=== PATIENT | female | born 1940 | race Caucasian/White ===

== ENCOUNTER → 2021-03-27 | Outpatient (CLI) | payer MEDICARE ==
[~2021-03-27] MED LIST: ACET500T33 PO; CALC500T30 PO; CHOL5000 PO; CREON; FOLI0.4T5 PO; HYDR-2759 PO; LACT1CAP37 PO; LIDOCAINE 1% Multi-Dose 20 ML VIAL. INJ ONE; METH2.5T PO; PANT20TA2 PO; PREG150C PO; VIT1TABL32 PO
--- NOTE | 2021-03-27 17:34 | RAD ---
Ultrasound guided fine needle aspiration biopsy of right thyroid nodule 03/27/2021 HISTORY: Thyroid nodule FINDINGS: Written informed consent was obtained from the patient. Limited ultrasound scanning was pe rformed for localization of the right thyroid nodule. Skin was marked with ultrasound and then steri isabela prepped and draped. Local anesthesia with 1% lidocaine. Using ultrasound guidance, 4 passes w ere made with 25 gauge needles into the thyroid nodule for fine needle aspiration biopsies. There we re no immediate complications. IMPRESSION: 1. Status post ultrasound guided fine needle aspiration biopsy of right thyroid nodule. Electronically signed by: Tamanna Cobos MD (03/27/2021 5:31 PM) [id number]
== END | disposition home or self-care (01) ==
LOC: US 12:41
PROVIDERS: ATTEND Surgery
DX: E04.1 Nontoxic single thyroid nodule (principal)
CPT/HCPCS: 10005; 88173; 88305; C1819

== ENCOUNTER → 2021-04-05 | Outpatient (CLI) | payer MEDICARE ==
--- NOTE | 2021-04-05 12:58 | RAD ---
CT THORAX WO History: Lung nodule. Comparison: CT chest 09/28/2020. Technique: Noncontrast CT of the chest. Findings: Assessment is limited by lack of IV contrast. Cardiovascular: Normal caliber aorta. Mildly enlarged main pulmonary artery. Normal heart size. Minim al coronary artery calcification. Mediastinum and yonny: Redemonstrated right thyroid nodule. Coarse calcifications in the left hilar ly mph nodes. No enlarged adenopathy. Esophagus unremarkable. Airways, lungs and pleura: Diffuse bronchial wall thickening. Multiple areas of mucous plugging parti cularly in the left lower lobe, increased from comparison. Medial left lower lobe nodules measuring 1 .2 x 1.0 cm (axial 241) and adjacent 6 mm nodule (axial 240) appear minimally enlarged from compariso n. Groundglass nodule right upper lobe measuring 1.2 cm diameter (axial 111) appears not significantl y changed. Redemonstrated are numerous areas of patchy tree-in-bud opacities including lateral lower right upper lobe (axial 132), posterior right lower lobe (for example axial 227), and left lower lobe (for example axial 210). Upper abdomen: Calcified granulomas spleen. Osseous structures and soft tissues: Within normal limits for age. Impression: 1. Bronchial wall thickening and mucous plugging with interval worsening at the right lower lobe. 2. Right lower lobe nodule measuring 1.2 x 1.0 cm in adjacent 6 mm nodule which appear minimally enl arged from recent comparison, May relate to differences in technique and/or ongoing infectious etiolo gy however malignancy is not excluded. Recommend 3 month interval follow-up CT versus PET/CT. 3. Additional groundglass opacities, most notably in the right upper lobe measuring 1.2 cm diameter for which includes bronchioloalveolar carcinoma in situ in the differential as well as infectious shanell ologies. Continued surveillance is indicated. 4. 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 ------ Exposure: One or more of the following individualized dose reduction techniques were utilized for thi s examination: 1. Automated exposure control 2. Adjustment of the mA and/or kV according to patient size 3. Use of iterative reconstruction technique. Electronically signed by: Jozef Kennedy MD (04/05/2021 12:55 PM) [facility]
== END ==
LOC: CT 08:50
PROVIDERS: ATTEND Internal Medicine Pulmonary Disease
DX: C34.11 Malignant neoplasm of upper lobe, right bronchus or lung (principal); R91.8 Other nonspecific abnormal finding of lung field; T17.990A Other foreign object in respiratory tract, part unspecified in causing asphyxiation, initial encounter; E04.1 Nontoxic single thyroid nodule; I25.10 Atherosclerotic heart disease of native coronary artery without angina pectoris; X58.XXXA Exposure to other specified factors, initial encounter; Y93.89 Activity, other specified; Y92.89 Other specified places as the place of occurrence of the external cause; Y99.8 Other external cause status
CPT/HCPCS: 71250

== ENCOUNTER → 2021-05-31 | Outpatient (CLI) | payer OTHER, MEDICAID ==
--- NOTE | 2021-05-31 15:28 | RAD ---
EXAMINATION: Ultrasound-guided fine-needle aspiration right thyroid nodule, 05/31/2021 12:39 PM CLINICAL INDICATION: Thyroid nodule, nondiagnostic results on prior FNA. COMPARISON: FNA of right thyroid nodule 03/27/2021 FINDINGS/TECHNIQUE: The purpose of the procedure, and risks and benefits were explained to the patient. Informed consent was obtained. A timeout was performed. Initial ultrasound images identified the right thyroid nodule. The skin overlying the patient's right neck was marked, prepped, and draped in standard sterile fashion. Skin and subcutaneous soft tissue were anesthetized with 1% lidocaine. Next, using continuous ultrasound guidance, four 25-gauge fine-n eedle aspiration samples were obtained of the thyroid nodule and given to the laboratory chemist for anal ysis. The skin was cleansed and covered with a dressing. The patient tolerated the procedure well and left in stable condition. IMPRESSION: Technically successful, ultrasound-guided fine needle aspiration of right thyroid nodule. Electronically signed by: Earline Cheng MD (05/31/2021 3:26 PM) [id number]
--- NOTE | 2021-06-05 11:09 | PATHOLOGY ---
Note [facility] Accession Number: [id number] TESTS RESULT FLAG UNITS REF RANGE LAB Clinician Provided Cytology Information No. of containers..01 Other (Miscellaneous) Source: RIGHT THYROID DIAGNOSIS: RIGHT THYROID INADEQUATE, INSUFFICIENT CELLS FOR STUDY. RED BLOOD CELLS ARE PRESENT. COLLOID IS PRESENT. THIS INTERPRETATION INCLUDES EVALUATION OF A CELL BLOCK. COMMENT, FEWER THAN 6 GROUPS OF 10 THYROID FOLLICULAR CELLS ARE PRESENT. THE MATERIAL ASPIRATED IS NOT BUS WASHER AND IS POORLY CELLULAR THE CLINICAL INDICATES 4.1 CM NODULE. THE RETAIN VIAL IS HENCE NOT SEND MIGHT NOT HAVE ENOUGH CELLS. Signed out by: Patsy Moody MD, Pathologist NPI- [id number] Performed by: Qing Mullen, Manager Play ([facility]) Gross description: 31ML, CLEAR, RED, 2F 2AD 2H /LCS 06/04/2021 1904 Local FLAG LEGEND: L-Low Normal,H-High Normal,LL-Alert Low,HH-Alert High <-Panic Low,>-Panic High,A-Abnormal,AA-Critical Abnormal Performed at: [address] [place] [address] [address] [place] [address] Jeremy Moody MD, Specimen Comment: [id number] Performed at: [address] [place] [address] [address], [place], [place] [id number] MD Jeremy Moody MD Phone: [phone]
== END ==
LOC: US 12:38
PROVIDERS: ATTEND Surgery
DX: E04.1 Nontoxic single thyroid nodule (principal)
CPT/HCPCS: 10005; 88173; 88305; C1819

== ENCOUNTER 2021-07-30 10:49 | Observation (INO) | payer OTHER, MEDICAID ==
[2021-07-30] VITALS (8 sets, daily range): BP systolic 120–148; BP diastolic 67–79
[~2021-07-30] VITALS: Ht 160 cm; Wt 90.9 kg
[~2021-07-30 10:49] MED LIST changes: -ACET500T33 PO; -CALC500T30 PO; -CHOL5000 PO; -CREON; -FOLI0.4T5 PO; -HYDR-2759 PO; +HYDROmorphone 2 MG/ML VIAL IVP PRN; +IV RINGERS,LACTATED 1000ML 1,000 ML IV SCH; -LACT1CAP37 PO; -LIDOCAINE 1% Multi-Dose 20 ML VIAL. INJ ONE; -METH2.5T PO; +MORPHINE SULFATE 2 MG/ML INJ. IVP PRN; -PANT20TA2 PO; -PREG150C PO; +PROCHLORPERAZINE 10 MG/2 ML VIAL. IVP PRN; +REMIFENTANIL 1 MG VIAL. IV ONE; -VIT1TABL32 PO; +fentaNYL PF VIAL 100 MCG/2 ML VIAL IVP PRN
[2021-07-30] MEDS ORDERED: fentaNYL PF VIAL 100 MCG/2 ML VIAL ONE (10:55)
[2021-07-30] MEDS ORDERED: ROCURONIUM 50 MG/5 ML VIAL. ONE (10:55)
[2021-07-30] MEDS ORDERED: PANT20TA2 PO (11:24)
[2021-07-30] MEDS ORDERED: CALC500T30 PO (11:24)
[2021-07-30] MEDS ORDERED: VIT1TABL32 PO (11:24)
[2021-07-30] MEDS ORDERED: PREG150C PO (11:24)
[2021-07-30] MEDS ORDERED: CHOL5000 PO (11:24)
[2021-07-30] MEDS ORDERED: ACET500T33 PO (11:24)
[2021-07-30] MEDS ORDERED: METH2.5T PO (11:24)
[2021-07-30] MEDS ORDERED: LACT1CAP37 PO (11:24)
[2021-07-30] MEDS ORDERED: FOLI0.4T5 PO (11:24)
[2021-07-30] MEDS ORDERED: CREON (11:25)
[2021-07-30] MEDS ORDERED: SUCCINYLCHOLINE 200 MG/10 ML VIAL. ONE (12:33)
[2021-07-30] MEDS ORDERED: GLYCOPYRROLATE 1 MG/5 ML VIAL. ONE (12:45)
[2021-07-30] MEDS ORDERED: PHENYLEPHRINE 10 MG/ML VIAL. ONE (12:58)
[2021-07-30] MEDS ORDERED: PROPOFOL 10 MG/ML (20ML) VIAL. IV ONE (13:00)
[2021-07-30] MEDS ORDERED: ePHEDrine PF IN SALINE 50 MG/10 ML SYRINGE. IV ONE (13:26)
[2021-07-30] MEDS ORDERED: ONDANSETRON PF 4 MG/2 ML VIAL. ONE (13:27)
[2021-07-30] MEDS ORDERED: DEXAMETHASONE SOD PHOS 4 MG/ML VIAL ONE (13:27)
[2021-07-30] MEDS ORDERED: SEVOFLURANE > 120 MINUTES. IH ONE (14:05)
[2021-07-30] MEDS ORDERED: NEOSTIGMINE METHYLSULFATE 5 MG/5 ML SYRINGE. ONE (14:31)
--- NOTE | 2021-07-30 15:13 | PDOC4 ---
Operative Note Operative Note Operative Note: Preoperative Diagnosis: Right thyroid mass Postoperative Diagnosis: Same Procedure: Right thyroidectomy Surgeon: Ander Product Promoter Sales Person: Dr. Perry, Marysol HERNANDEZ, Tanner Sol MS 4 Anesthesia: General EBL: 75 mL Specimen: Right thyroid to pathology Drains: None Complications: None Indication: The patient is a 81-year-old female who was referred due to a mass of the right thyroid that was over 4 cm. Two attempts were made for FNA evaluation however both were insufficient for diagnosis. I discussed with the patient options which include observation versus surgical excision. The details and risks of both approaches were discussed. The risks of surgery include b leeding, infection, recurrent laryngeal nerve injury, pain, hypoparathyroidism, anesthetic risk, voice changes, potential need for additional surgery procedure. She understands and would like to proceed with surgery. She is aware that if cancer is identified on frozen section a total thyroidectomy may be required. Description: The patient was taken the operating room and placed supine on the operating table. General anesthesia was performed. The Nims device was assembled. The anterior neck was prepped with ChloraPrep and draped in a standard surgical manner. A curved incision was made 2 fingerbreadths above the sternal notch. Cautery dissection was carried down through the platysma. Subplatysmal flaps were developed superiorly and inferiorly. The strap muscle fascia was divided in the midline. We began mobilizing the right thyroid lobe. The mass was identified and appeared to essentially overtake the right thyroid lobe. There was some adherence of the mass consistent with potential inflammatory change. Gradually we freed up the strap muscle fascia from the mass laterally. In the superior aspect there was some fibrotic tissue noted as well. The superior pole vessels were identified, dissected free, ligated with 2-0 Vicryl and divided. The harmonic scalpel assisted with mobilization of the rest of the thyroid lobe. The vessels entering the inferior pole of the thyroid were ligated with 3-0 Vicryl and divided. We then continued mobilizing the remainder of the lobe which was dominated by the mass. The mass was taken off of the trachea using harmonic scalpel. The entire mass was then sent to pathology for evaluation. Frozen section showed a follicular lesion with no evidence of papillary carcinoma. Additional inspection showed a small thyroid r emnant laterally that was likely a small portion of the normal gland. This was freed up from the surrounding tissues. Lateral to this was the recurrent laryngeal nerve which was readily identified and stimulated properly with the Nims device. This remaining remnant was carefully dissected free and excised and sent to pathology. The recurrent laryngeal nerve was preserved and st imulated appropriately. Hemostasis was good. The strap muscle fascia was reapproximated with 3-0 Vicryl. The platysma was closed with 3-0 Vicryl. Skin was approximated with 4-0 Monocryl. Steri-Strips and a sterile dressing were applied. The patient tolerated the procedure well and was sent to the recovery room in stable condition. At the end the case all counts were correct. OZZIE TORRE MD Jul 30, 2021 15:13
[2021-07-30] MEDS ORDERED: IV NORMAL SALINE 1000ML BAG 1,000 ML IV SCH (15:15)
[2021-07-30] MEDS ORDERED: NALOXONE 0.4 MG/ML VIAL. IV PRN (15:15)
[2021-07-30] MEDS ORDERED: HYDROmorphone 2 MG/ML VIAL IV PRN (15:15)
[2021-07-30] MEDS ORDERED: 0.9 % SODIUM CHLORIDE 10 ML DISP.SYRIN. IV PRN (15:15)
[2021-07-30] MEDS ORDERED: ONDANSETRON PF 4 MG/2 ML VIAL. IVP PRN (15:15)
[2021-07-30] MEDS: PREGABALIN 75 MG CAPSULE PO SCH ×2 (15:30→19:52)
--- NOTE | 2021-07-30 16:30 | NUR ---
Arrived to unit by bed from PACU. Drowsy but awakens easily. No c/o at this time. Dressing on anterior neck d/i. Noted fatty tumor on left side of neck. Able to move all extremities. IVF's intact and infusing. O2 at 2l per n/c. Side rails up x's 2 with call light in reach. Cont. monitor.
[2021-07-30] MEDS: IV 1/2 NORMAL SALINE 1,000 ML IV SCH ×2 (17:42→23:15)
[2021-07-30] MEDS: HYDROcodone/APAP 5/325MG 1 TAB TABLET PO PRN ×2 (17:44→22:45)
[2021-07-30] MEDS ORDERED: FLU VACC QUAD 21-22 (6MOS+) PF 0.5 ML SYRINGE. VAX IM ONE (21:00)
[2021-07-31] MEDS: HYDROcodone/APAP 5/325MG 1 TAB TABLET PO PRN ×2 (02:34→08:37)
[2021-07-31 02:35] VITALS: BP 118/63
[2021-07-31 06:39] VITALS: BP 95/56
[2021-07-31] MEDS ORDERED: PANTOPRAZOLE 40 MG TABLET.DR. PO SCH (07:30)
[2021-07-31] MEDS: PREGABALIN 75 MG CAPSULE PO SCH (08:36)
[2021-07-31] MEDS ORDERED: LACTOBACILLUS RHAMNOSUS GG 1 CAPSULE. PO SCH (09:00)
[2021-07-31] MEDS ORDERED: FOLIC ACID 1 MG TABLET. PO SCH (09:00)
[2021-07-31] MEDS ORDERED: MULTIVITAMIN I-VITE TABLET. PO SCH (09:00)
--- NOTE | 2021-07-31 09:07 | PDOC ---
PROGRESS NOTES Date of Service DATE: 07/31/21 TIME: 09:06 Subjective Subjective doing well, voice strong Objective Objective Vital Signs Date Time Temp Pulse Resp B/P (MAP) Pulse Ox O2 Delivery O2 Flow Rate FiO2 07/31/21 07:27 Room Air 07/31/21 06:39 98.6 73 18 95/56 (69) 97 3.0 98.6 Intake and Output 07/31/21 07:00 Intake Total 1350 ml Output Total 1375 ml Balance -25 ml Intake Oral 500 ml IV Total 850 ml Output Urine Total 1300 ml Estimated Blood Loss 75 ml Physical Exam Physical Exam neck without hematoma Plan Plan of Care discharge Comment Review of Relevant I have reviewed the following items kierra (where applicable) has been applied. Medications Current Medications Fentanyl Citrate (Fentanyl 2ml Vial) 25 mcg PRN Q5MIN PRN IVP MILD PAIN 1-3; Start 07/30/21 at 06:00; Stop 07/30/21 at 16:33; Status DC Fentanyl Citrate (Fentanyl 2ml Vial) 50 mcg PRN Q5MIN PRN IVP MODERATE PAIN 4- 6; Start 07/30/21 at 06:00; Stop 07/30/21 at 16:33; Status DC Morphine Sulfate (Morphine Sulfate) 1 mg PRN Q10MIN PRN IVP SEVERE PAIN 7-10; Start 07/30/21 at 06:00; Stop 07/30/21 at 16:33; Status DC Ringer's Solution 1,000 ml @ 30 mls/hr Q24H IV Last administered on 07/30/21at 11:40; Start 07/30/21 at 06:00; Stop 07/30/21 at 17:59; Status DC Hydromorphone HCl (Dilaudid) 0.5 mg PRN Q10MIN PRN IVP SEVERE PAIN 7-10, 2nd CHOICE; Start 07/30/21 at 06:00; Stop 07/30/21 at 16:33; Status DC Prochlorperazine Edisylate (Compazine) 5 mg PACU PRN PRN IVP NAUSEA, MRX1; Start 07/30/21 at 06:00; Stop 07/30/21 at 16:33; Status DC Cefazolin Sodium/ Dextrose 50 ml @ 100 mls/hr 1X PREOP PRN IV PRIOR TO PROCEDURE Last administered on 07/30/21at 12:26; Start 07/30/21 at 06:00; Stop 07/30/21 at 16:32; Status DC Rocuronium Becker (Zemuron) 50 mg STK-MED ONCE .ROUTE ; Start 07/30/21 at 10:55; Stop 07/30/21 at 10:55; Status DC Fentanyl Citrate (Fentanyl 2ml Vial) 100 mcg STK-MED ONCE .ROUTE ; Start 07/30/21 at 10:55; Stop 07/30/21 at 10:56; Status DC Remifentanil HCl (Ultiva) 1 mg STK-MED ONCE IV ; Start 07/30/21 at 09:00; Stop 07/30/21 at 11:00; Status DC Succinylcholine Chloride (Anectine) 200 mg STK-MED ONCE .ROUTE ; Start 07/30/21 at 12:33; Stop 07/30/21 at 12:33; Status DC Glycopyrrolate (Robinul) 1 mg STK-MED ONCE .ROUTE ; Start 07/30/21 at 12:45; Stop 07/30/21 at 12:46; Status DC Phenylephrine HCl (Willard-Synephrine Inj) 10 mg STK-MED ONCE .ROUTE ; Start 07/30/21 at 12:58; Stop 07/30/21 at 12:58; Status DC Propofol (Diprivan) 200 mg STK-MED ONCE IV ; Start 07/30/21 at 13:00; Stop 07/30/21 at 13:00; Status DC Ephedrine Sulfate (ePHEDrine PF IN SALINE SYRINGE) 50 mg STK-MED ONCE IV ; Start 07/30/21 at 13:26; Stop 07/30/21 at 13:27; Status DC Ondansetron HCl (Zofran) 4 mg STK-MED ONCE .ROUTE ; Start 07/30/21 at 13:27; Stop 07/30/21 at 13:27; Status DC Dexamethasone Sodium Phosphate (Decadron) 4 mg STK-MED ONCE .ROUTE ; Start 07/30/21 at 13:27; Stop 07/30/21 at 13:27; Status DC Sevoflurane (Ultane) 90 ml STK-MED ONCE IH ; Start 07/30/21 at 14:05; Stop 07/30/21 at 14:06; Status DC Neostigmine Becker (Neostigmine Methylsulfate) 5 mg STK-MED ONCE .ROUTE ; Start 07/30/21 at 14:31; Stop 07/30/21 at 14:32; Status DC Sodium Chloride (Normal Saline Flush) 3 ml QSHIFT PRN IV AFTER MEDS AND BLOOD DRAWS; Start 07/30/21 at 15:15 Sodium Chloride 1,000 ml @ 70 mls/hr [id number] IV Last administered on 07/30/21at 17:42; Start 07/30/21 at 15:15 Acetaminophen/ Hydrocodone Bitart (Lortab 5/325) 1 tab PRN Q4HRS PRN PO MILD PAIN 1-3 Last administered on 07/31/21at 08:37; Start 07/30/21 at 15:15 Acetaminophen/ Hydrocodone Bitart (Lortab 5/325) 2 tab PRN Q4HRS PRN PO MODERATE PAIN, SEVERE PAIN Last administered on 07/31/21at 02:34; Start 07/30/21 at 15:15 Naloxone HCl (Narcan) 0.4 mg PRN Q2MIN PRN IV SEE INSTRUCTIONS; Start 07/30/21 at 15:15 Sodium Chloride 1,000 ml @ 25 mls/hr Q24H IV ; Start 07/30/21 at 15:15; Stop 07/30/21 at 16:33; Status DC Hydromorphone HCl (Dilaudid) 0.2 mg PRN Q1HR PRN IV PAIN; Start 07/30/21 at 15:15 Ondansetron HCl (Zofran) 4 mg PRN Q6HRS PRN IVP LUPE, 1ST CHOICE; Start 07/30/21 at 15:15 Multivitamins/ Minerals (I-Aurora) 1 tab DAILY PO Last administered on 07/31/21at 08:36; Start 07/31/21 at 09:00 Folic Acid (Folic Acid) 0.5 mg DAILY PO Last administered on 07/31/21at 08:36; Start 07/31/21 at 09:00 Lactobacillus Rhamnosus (Culturelle) 1 cap DAILY PO Last administered on 07/31/21at 08:36; Start 07/31/21 at 09:00 Pantoprazole Sodium (Protonix) 40 mg DAILYAC PO Last administered on 07/31/21at 06:14; Start 07/31/21 at 07:30 Pregabalin (Lyrica) 150 mg TID PO Last administered on 07/31/21at 08:36; Start 07/30/21 at 15:30 Influenza Virus Vaccine Quadrival (Flulaval Quad Syringe) 0.5 ml ONCE ONCE VAX IM Last administered on 07/31/21at 06:37; Start 07/30/21 at 21:00; Stop 07/30/21 at 21:01; Status DC Active Scripts Active Reported [Creon] Tylenol Extra Strength (Acetaminophen) 500 Mg Tablet 500 Mg PO BID Calcium (Calcium Carbonate) 500 Mg Tablet 500 Mg PO TID Protonix (Pantoprazole Sodium) 20 Mg Tablet.dr 20 Mg PO DAILY Folic Acid 0.4 Mg Tablet 0.4 Mg PO DAILY Vitamin D3 (Vitamin D) 125 Mcg Capsule 125 Mcg PO DAILY 5,000 UNITS = 125 MCG Methotrexate (Methotrexate Sodium) 2.5 Mg Tablet 6 Tab PO WEEKLY Ocuvite Tablet (Vit A,C & E/Lutein/Minerals) 1 Each Tablet 1 Tab PO DAILY 30 Days Probiotic (Lactobacillus Combo No.10) 1 Each Capsule 1 Tab PO DAILY 30 Days Lyrica (Pregabalin) 150 Mg Capsule 150 Mg PO TID 30 Days Vitals/I & O Vital Sign - Last 24 Hours 07/30/21 07/30/21 07/30/21 07/30/21 11:25 11:38 15:03 15:15 Temp 98.8 97.2 98.8 97.2 Pulse 81 87 Resp 12 16 B/P (MAP) 176/81 159/62 Pulse Ox 92 98 O2 Delivery Room Air Room Air Room Air Mask O2 Flow Rate 8 8 07/30/21 07/30/21 07/30/21 07/30/21 15:20 15:35 16:10 16:30 Temp 98.6 98.6 Pulse 88 84 85 88 Resp 16 16 16 20 B/P (MAP) 145/56 150/66 131/70 (90) 134/68 (90) Pulse Ox 98 96 92 93 O2 Delivery Room Air Room Air Nasal Cannula Nasal Cannula O2 Flow Rate 3.0 3.0 07/30/21 07/30/21 07/30/21 07/30/21 16:45 16:48 17:00 17:30 Pulse 97 88 91 Resp 20 18 20 B/P (MAP) 145/79 (101) 146/77 (100) 148/79 (102) Pulse Ox 93 93 94 O2 Delivery Nasal Cannula Nasal Cannula Nasal Cannula Nasal Cannula O2 Flow Rate 3.0 3.0 3.0 3.0 07/30/21 07/30/21 07/30/21 07/30/21 17:44 18:00 19:00 19:12 Temp 98.4 98.2 98.4 98.2 Pulse 85 78 Resp 20 20 B/P (MAP) 144/76 (98) 138/71 (93) Pulse Ox 94 94 O2 Delivery Room Air Nasal Cannula Nasal Cannula Nasal Cannula O2 Flow Rate 3.0 3.0 3.0 07/30/21 07/30/21 07/30/21 07/30/21 19:52 22:45 22:45 23:15 Temp 97.9 97.9 Pulse 76 Resp 18 18 20 B/P (MAP) 120/67 (84) Pulse Ox 95 95 95 O2 Delivery Nasal Cannula Nasal Cannula Nasal Cannula Room Air O2 Flow Rate 3.0 3.0 3.0 07/31/21 07/31/21 07/31/21 07/31/21 02:34 02:35 03:04 06:35 Temp 98.0 98.0 Pulse 80 Resp 18 18 18 B/P (MAP) 118/63 (81) Pulse Ox 93 93 77 O2 Delivery Room Air Room Air Room Air Room Air 07/31/21 07/31/21 06:39 07:27 Temp 98.6 98.6 Pulse 73 Resp 18 B/P (MAP) 95/56 (69) Pulse Ox 97 O2 Delivery Nasal Cannula Room Air O2 Flow Rate 3.0 Intake and Output 07/30/21 07/30/21 07/31/21 15:00 23:00 07:00 Intake Total 850 ml 500 ml Output Total 775 ml 600 ml Balance 75 ml -100 ml Justifications for Admission Other Justification OZZIE TORRE MD Jul 31, 2021 09:07
[2021-07-31] MEDS ORDERED: HYDR-2759 PO (09:09)
--- NOTE | 2021-07-31 09:11 | DISCH ---
DISCHARGE INSTRUCTIONS Condition on Discharge Condition on Discharge: Stable Activity After Discharge Activity Instructions for Disc: Activity as tolerated Wound Incision Care Wound/Incision Care: Other, see below (keep incision clean and dry X 72 hours, may then shower) Follow-Up Follow up with: Dr Torre in 2 weeks in office, call for appointment [phone] OZZIE TORRE MD Jul 31, 2021 09:11
--- NOTE | 2021-07-31 09:12 | PDOC3 ---
Discharge Summary Visit Information Date of Admission: Jul 30, 2021 Date of Discharge: Jul 31, 2021 Admitting Diagnosis: Thyroid nodule Brief Hospital Course Allergies Allergies Coded Allergies Type Severity Reaction Last Updated Verified No Known Drug Allergies 07/30/21 No Vital Signs Vital Signs Date Time Temp Pulse Resp B/P (MAP) Pulse Ox O2 Delivery O2 Flow Rate FiO2 07/31/21 07:27 Room Air 07/31/21 06:39 98.6 73 18 95/56 (69) 97 3.0 98.6 Brief Hospital Course Ms. Weber is a 81 old female presented with a right thyroid nodule. She underwent a right thyroidectomy and her postoperative course was uneventful. Discharge Information Condition at Discharge: Improved Follow Up: Weeks (2 weeks) Disposition/Orders: D/C to Home Scheduled Acetaminophen (Tylenol Extra Strength) 500 Mg Tablet, 500 MG PO BID for , (Reported) Entered as Reported by: Yesi Lucia on 07/30/211123 Last Taken: 500 on 07/29/21 Last Action: HELD on 07/30/211518 by OZZIE TORRE Calcium Carbonate (Calcium) 500 Mg Tablet, 500 MG PO TID for , (Reported) Entered as Reported by: Yesi Lucia on 07/30/211123 Last Taken: 500 on Unknown Date & Time Last Action: HELD on 07/30/211518 by OZZIE TORRE Cholecalciferol (Vitamin D3) (Vitamin D3 ) 125 Mcg Capsule, 125 MCG PO DAILY for SUPPLEMENT, (Reported) 5,000 UNITS = 125 MCG Entered as Reported by: Yesi Lucia on 07/30/211123 Last Taken: Unknown Dose on 07/22/21 Last Action: HELD on 07/30/211518 by OZZIE TORRE Folic Acid (Folic Acid) 0.4 Mg Tablet, 0.4 MG PO DAILY for SUPPLEMENT, (Reported) Entered as Reported by: Yesi Lucia on 07/30/211123 Last Taken: Unknown Dose on 07/23/21 Last Action: Converted on 07/30/211518 by OZZIE TORRE Lactobacillus Combo No.10 (Probiotic) 1 Each Capsule, 1 TAB PO DAILY for for 30 Days, #30 Ref 0 (Reported) Entered as Reported by: Yesi Lucia on 07/30/211123 Last Taken: 1 on 07/29/21 Last Action: Converted on 07/30/211518 by OZZIE TORRE Methotrexate Sodium (Methotrexate) 2.5 Mg Tablet, 6 TAB PO WEEKLY for , #24 Ref 1 (Reported) Entered as Reported by: Yesi Lucia on 07/30/211123 Last Taken: Unknown Dose on 07/27/21 Last Action: HELD on 07/30/211518 by OZZIE TORRE Pantoprazole Sodium (Protonix) 20 Mg Tablet.dr, 20 MG PO DAILY for , (Reported) Entered as Reported by: Yesi Lucia on 07/30/211123 Last Taken: 20 on Unknown Date & Time Last Action: Converted on 07/30/211518 by OZZIE TORRE Pregabalin (Lyrica) 150 Mg Capsule, 150 MG PO TID for for 30 Days, Ref 0 (Reported) Entered as Reported by: Yesi Lucia on 07/30/211123 Last Taken: 150 on 07/29/21 Last Action: Converted on 07/30/211518 by OZZIE TORRE Vit A,C & E/Lutein/Minerals (Ocuvite Tablet) 1 Each Tablet, 1 TAB PO DAILY for for 30 Days, #30 Ref 0 (Reported) Entered as Reported by: Yesi Lucia on 07/30/211123 Last Taken: Unknown Dose on 07/29/21 Last Action: Continued on 07/30/211518 by OZZIE TORRE Scheduled PRN Hydrocodone/Acetaminophen (Hydrocodone-Acetamin 5-325 mg) 1 Each Tablet, 1 EACH PO Q6HRS PRN for PAIN for 7 Days, #20 Ref 0 Prescribed by: OZZIE TORRE on 07/31/21 0910 Durable Medical Equipment [Creon] , (Reported), (DME) Entered as Reported by: Yesi Lucia on 07/30/211124 Last Action: New Order on 07/30/211124 by Yesi Lucia Justicifation of Admission Dx: Justifications for Admission: Justification of Admission Dx: N/A OZZIE TORRE MD Jul 31, 2021 09:12
[2021-07-31 11:00] VITALS: BP 108/49
--- NOTE | 2021-07-31 11:10 | NUR ---
REVIEWED WRITTEN DISCHARGE INSTRUCTIONS WITH PATIENT AND GRANDSON. REVIEWED RESTRICTIONS TO ACTIVITIES OF DAILY LIVING SUCH BATHING, DRESSING AND DRIVING. INSTRUCTED TO CALL FOR A POST OP APPT WITH DR. TORRE FOR 10-14 DAYS POST OP. REVIEWED MEDICATIONS AND THE ONE SHE HAS TO TAKE FOR THE DAY. SHE HAD AM MEDICATIONS
--- NOTE | 2021-08-05 18:07 | PATHOLOGY ---
[facility] Accession Number: [id number] . 01 Material submitted: . PART A: thyroid gland - RIGHT THYROID LOBE- FS. Modifiers: right PART B: thyroid gland - ADDITIONAL THYROID TISSUE . 01 Clinical history: . TYHROID NODULE POSSIBLE TOTAL RIGHT THYROIDECTOMY . 02 Frozen section diagnosis: . INTRAOPERATIVE CONSULTATION WITH FROZEN SECTION: Right thyroid nodule, excision: - Thinly encapsulated follicular lesion - definitive diagnosis deferred to permanent sections. . The results are reported to Dr. Worthington. (JPM:charlie; 07/30/2021) . FROZEN SECTION GROSS DESCRIPTION: The specimen is received fresh for intraoperative consultation and is designed "right thyroid nodule". This consists of a lobe of reddish purple soft fluctuant thyroid tissue which weighs 26 grams and measures up to 4.8 x 4.1 x 2.5 cm in greatest dimension. The anterior capsular surface appears smooth and glistening. The posterior surface shows focal dark black cauterized roughening. The margin is inked with black ink. Sectioning reveals a pinkish brown nodule measuring approximately 4.0 cm in diameter which shows central cystic degeneration and hemorrhage. The nodule appears well circumscribed and thinly encapsulated. The nodule encompasses most of the thyroid lobe. There is a small remnant of brown meaty thyroid tissue along one side. A sales representative trainee portion of the nodule is submitted for frozen section as FSA1. The tissue remaining from frozen section is submitted for permanent sections as A1 (JPM:charlie/jenifer; 07/30/2021) . Frozen section performed at [facility], [address] [place] [address], [place] [address] JMMai/MBR . 02 Diagnosis: A. Thyroid lobe with focal attached perithyroidal fibroadipose and skeletal muscle tissue, right thyroid lobectomy: - PAPILLARY CARCINOMA, INVOLVING PERIPHERAL THYROID LOBE, MEASURING 1.0 CM IN GREATEST DIMENSION, WITH TUMOR INVASION OF PERITHYROIDAL SOFT TISSUE AND FOCAL INVOLVEMENT OF INKED MARGIN OF RESECTION. - Adenomatous nodule, forming a dominant thyroid nodule measuring 4.0 cm in greatest dimension, with degenerative changes. - Parathyroid gland tissue identified. . B. Additional thyroid tissue, excision: - Segment of benign thyroid tissue identified. . (JPM:mml/pit; 08/02/2021) . Surgical Pathology Cancer Case Summary Protocol posting date: October 2018 THYROID GLAND: Procedure ___ Right lobectomy Tumor Focality ___ Unifocal Tumor Site ___ Right lobe Tumor Size Greatest dimension: 1.0 cm Histologic Type Papillary Carcinomas ___ Papillary carcinoma, classic (usual, conventional) Margins ___ Involved by carcinoma + Site(s) of involvement: Focal involvement of perithyroidal soft tissue margin Angioinvasion (Vascular Invasion) ___ Not identified Lymphatic Invasion ___ Not identified + Perineural Invasion +___ Not identified Extrathyroidal Extension ___ Not identified Regional Lymph Nodes ___ No lymph nodes submitted or found Pathologic Stage Classification (pTNM, AJCC 8th Edition) Primary Tumor (pT) ___ pT1a: Tumor less than or equal to 1 cm in greatest dimension limited to the thyroid Category (pN) ___ pNX: Regional lymph nodes cannot be assessed + Additional Pathologic Findings + ___ Adenomatoid nodule + ___ Parathyroid gland tissue present + Clinical History + ___ No known radiation exposure . (JPM:pit; 08/05/2021) [facility] 08/05/2021 1728 Local . 02 Comment: Sections of the dominant thyroid nodule reveal an adenomatous nodule showing degenerative changes. There is an incidental papillary carcinoma identified involving the periphery of the thyroid lobe which measures 1.0 cm in greatest dimension. There is tumor invasion of perithyroidal soft tissue, but there is no definitive evidence of invasion of attached portions of skeletal muscle tissue. There is focal tumor involvement of the inked margin of resection. Three of the sections also reveal small portions of parathyroid gland tissue. This may represent a single parathyroid gland or possibly two parathyroid glands. Correlate clinically. . The case is also examined by Dr. Esther Calvillo, who concurs with the diagnosis. The results are reported to Dr. Worthington on 08/05/2021 at 10:00 am. (JPM:pit; 08/05/2021) . 02 Electronically signed: . Glen Anton MD, Pathologist NPI- [id number] . 01 Gross description: . A. PLEASE SEE GROSS DESCRIPTION UNDER FROZEN SECTION DIAGNOSIS. . Further sectioning through the specimen reveals a solid, pale mendoza, partially calcified possible nodule, which grossly abuts the inked capsule, measuring 1.1 cm. Additional sales representative trainee sections are submitted as follows: . A2-A6 additional sales representative trainee sections of large nodule A7-A9 entire solid, partially calcified possible nodule A10-A22 remainder of capsule. . B. The specimen is received in formalin, labeled "Grace Weber, additional thyroid tissue". Received is a 1 g segment of red-brown tissue measuring 1.2 x 1.0 x 0.6 cm in greatest dimensions. The surgical margin is inked. The specimen is bisected and entirely submitted in cassette B1. (CAA; 07/31/2021) [facility] 07/31/2021 1618 Local . 02 Pathologist provided ICD-10: C73, E04.1 . 02 CPT . 501598, 167093, 225035 Specimen Comment: A courtesy copy of this report has been sent to [phone], [phone] Specimen Comment: [id number] Specimen Comment: Report sent to / DR JOHNSON Performed at: 01 [facility] [address], [place] [id number] MD Jeremy Moody MD Phone: [phone] Performed at: 02 [facility] [address] [place], [place] [id number] MD Glen Anton MD Phone: [phone]
== END 2021-07-31 11:20 | disposition home or self-care (01) ==
LOC: SURG 10:49 → 4 SOUTHEST 15:13
PROVIDERS: ADMIT Surgery; ATTEND Surgery
DX: E04.1 Nontoxic single thyroid nodule (principal); E07.9 Disorder of thyroid, unspecified; Z23 Encounter for immunization; Z71.85 Encounter for immunization safety counseling
CPT/HCPCS: 60240; 90471; 90686; A4930; A6255; A6257; A6258; A6402; G0378; G0379; J0330; J0690; J1100; J2370; J2405; J2704; J2710; J3010; J3490; 88305; 88307; 88331; A4222; A4452

== ENCOUNTER → 2021-10-25 | Outpatient (CLI) | payer OTHER, MEDICAID ==
[~2021-10-25] MED LIST changes: +ACET500T33 PO; +CALC500T30 PO; +CHOL5000 PO; +CREON; +FOLI0.4T5 PO; +HYDR-2759 PO; -HYDROmorphone 2 MG/ML VIAL IVP PRN; -IV RINGERS,LACTATED 1000ML 1,000 ML IV SCH; +LACT1CAP37 PO; +METH2.5T PO; -MORPHINE SULFATE 2 MG/ML INJ. IVP PRN; +PANT20TA2 PO; +PREG150C PO; -PROCHLORPERAZINE 10 MG/2 ML VIAL. IVP PRN; -REMIFENTANIL 1 MG VIAL. IV ONE; +VIT1TABL32 PO; -fentaNYL PF VIAL 100 MCG/2 ML VIAL IVP PRN
--- NOTE | 2021-10-25 13:08 | RAD ---
EXAM: CT CHEST WITHOUT CONTRAST HISTORY: Lung nodule COMPARISON: CT chest 04/05/2021 TECHNIQUE: Helical CT of the chest performed without contrast. Coronal and sagittal reformats were o btained. One or more of the following individualized dose reduction techniques were utilized for this examinat ion: 1. Automated exposure control 2. Adjustment of the mA and/or kV according to patient size 3. Use of iterative reconstruction technique. FINDINGS: Thyroid gland and thoracic inlet: The right thyroid gland has been resected. Heart and great vessels: Heart is normal in size. There are coronary artery calcifications. No perica rdial effusion. Thoracic aorta is normal in caliber. Mediastinum and yonny: Small mediastinal lymph nodes are unchanged and likely reactive. Lungs and pleura: Unchanged 1.5 cm ground glass nodule in the lateral right upper lobe. Unchanged 1.1 cm subpleural nodule and adjacent 6 mm nodule in the medial left lower lobe. There is mild bronchiec tasis and airway wall thickening and mucous plugging, particularly in the medial left lower lobe. Are as of tree-in-bud nodularity in the peripheral lower lobes, lateral right upper lobe, and lingula are unchanged from 04/05/2021. A few additional small nodules in the right apex are also unchanged. No ne w nodules. No pleural effusion. Chest wall and axillae: No axillary lymphadenopathy. Upper abdomen: Hepatic steatosis. There are calcified splenic granulomas. The gallbladder is surgical ly absent. Bones: No acute osseous abnormality. There is mild degenerative disc disease. IMPRESSION: 1. Unchanged1.1 cm pulmonary nodule in the medial left lower lobe and 1.5 cm groundglass nodule in th e lateral right upper lobe. Bronchiectasis with mucous plugging and tree-in-bud nodularity elsewhere is also unchanged. Findings are favored to be infectious in etiology but continued surveillance is re commended to exclude malignancy. 2. Interval resection of the right thyroid gland. 3. Hepatic steatosis. Electronically signed by: Earline Cheng MD (10/25/2021 1:06 PM) [facility]
== END ==
LOC: CT 11:02
PROVIDERS: ATTEND Internal Medicine Pulmonary Disease
DX: R91.8 Other nonspecific abnormal finding of lung field (principal); J47.9 Bronchiectasis, uncomplicated; R59.0 Localized enlarged lymph nodes; T17.990A Other foreign object in respiratory tract, part unspecified in causing asphyxiation, initial encounter; I25.10 Atherosclerotic heart disease of native coronary artery without angina pectoris; X58.XXXA Exposure to other specified factors, initial encounter; Y93.89 Activity, other specified; Y92.89 Other specified places as the place of occurrence of the external cause; Y99.8 Other external cause status
CPT/HCPCS: 71250

== ENCOUNTER 2021-12-14 18:13 | Inpatient (IN) | payer OTHER, MEDICAID ==
[~2021-12-14] VITALS: Ht 157.5 cm; Wt 85.7 kg
--- NOTE | 2021-12-14 18:28 | PHYS DOC ---
Past Medical History Past Surgical History: No Surgical History Smoking Status: Never Smoker General Adult EDM: Chief Complaint: SHORTNESS OF BREATH HPI: HPI: Patient is a 81 year old female who presents with report of greater than 2-week history of cough with purulent sputum, shortness of breath. She denies nausea, vomiting, diarrhea. She denies abdominal pain. He does report some chest pressure intermittently for the past 2 weeks as well. She has attributed the chest pressure to coughing. She denies hemoptysis. She is currently residing in an assisted living facility, and she reports that multiple staff members and other patients living that have had similar symptoms. She has been fully vaccinated against COVID-19, including booster, she has had an influenza vaccine as well. She has not recently been hospitalized, denies recent travel, denies recent surgery. She does have a chronically swollen right lower extremity, which is unchanged. She has chronic lower extremity and foot pain secondary to diabetic neuropathy. She is hypoxic on room air, she does not normally require supplemental oxygen. She quit smoking many decades ago. She has no known history of COPD or pulmonary disease. Review of Systems: Review of Systems: Constitutional: Denies objective fever, reports chills. Eyes: Denies change in visual acuity. [] HENT: Denies nasal congestion or sore throat. [] Respiratory: Reports cough with purulent sputum, reports dyspnea. No wheezing. No hemoptysis Cardiovascular: Remittent chest pressure. Chronic right lower extremity swelling. GI: Denies abdominal pain, nausea, vomiting, or diarrhea : Denies urinary symptoms Musculoskeletal: Denies back pain or joint pain. [] Integument: Denies rash. [] Neurologic: Denies headache, focal weakness or sensory changes. [] Psychiatric: Denies depression or anxiety. [] Heart Score: C/O Chest Pain: Yes HEART Score for Chest Pain: HEART Score for Chest Pain Response (Comments) Value History Moderately Suspicious 1 Age > 65 2 Risk Factors >3 Risk Factors or Hx CAD 2 Troponin >1-<3x Normal Limit 1 Total 6 Risk Factors: Risk Factors: DM, Current or recent (<one month) smoker, HTN, HLP, family history of CAD, obesity. Risk Scores: Score 0 - 3: 2.5% MACE over next 6 weeks - Discharge Home Score 4 - 6: 20.3% MACE over next 6 weeks - Admit for Clinical Observation Score 7 - 10: 72.7% MACE over next 6 weeks - Early Invasive Strategies Allergies: Allergies: Allergies Coded Allergies Type Severity Reaction Last Updated Verified No Known Drug Allergies 07/30/21 No Physical Exam: PE: Constitutional: Well developed, well nourished, no acute distress, non-toxic ap pearance. [] HENT: Normocephalic, atraumatic, oropharynx is patent and clear. Mucous membranes are moist Eyes: Conjunctive are normal, sclera anicteric Neck: Normal range of motion, no tenderness, supple, no stridor. Achy midline, no JVD Cardiovascular:Heart rate regular rhythm, +2 radial and +2 posterior tibial pulses bilaterally. No cyanosis. Cap refill brisk Lungs & Thorax: Managed breath sounds in bilateral bases, fine rales bilateral bases. No wheezing, no stridor, minimal tachypnea, speaks in full and clear sentences. No cyanosis. No significant respiratory distress noted Abdomen: Abdomen soft, obese, nondistended, nontender to palpation. Skin: Warm, dry, no erythema, no rash. [] Back: No tenderness, no CVA tenderness. [] Extremities: No tenderness, no cyanosis, no clubbing, ROM intact, bilateral, symmetric pedal and ankle edema, right lower extremity appears to be more swollen than the left, no calf tenderness is noted. No palpable cord. No cyanosis. No discoloration. No warmth or erythema. Neurologic: Alert and oriented X 3, normal motor function, normal sensory function, no focal deficits noted. [] Psychologic: Affect normal, judgement normal, mood normal. She is very pleasant and cooperative. Current Patient Data: Vital Signs: Vital Signs Date Time Temp Pulse Resp B/P (MAP) Pulse Ox O2 Delivery O2 Flow Rate FiO2 12/14/21 18:19 98.7 148 15 148/70 (96) 98 Nasal Cannula 2.0 98.7 EKG: EKG: EKG is interpreted at 1903 Rhythm is sinus Rate is 91 bpm Organ is left low voltage No STEMI EKG is interpreted at 2329 Rhythm is atrial fibrillation with RVR Rate is 132 bpm Organ is left low voltage No STEMI Radiology/Procedures: Radiology/Procedures: IMAGING REPORT Signed PATIENT: DEON SANDS ACCOUNT: [id number] : 1940 LOCATION: ER AGE: 81 SEX: F EXAM STATUS: PRE ER ORD. PHYSICIAN: KATHRYN RODRIGUEZ DO REASON: cough, dyspnea, hypoxia PROCEDURE: PORTABLE CHEST 1V Exam: Chest one view INDICATION: Cough TECHNIQUE: Frontal view of the chest Comparisons: 10/25/2021 FINDINGS: The cardiomediastinal silhouette and pulmonary vessels are within normal limits. Patchy bibasilar airspace disease. No pleural effusion. IMPRESSION: Bibasilar airspace disease may be infectious or inflammatory in etiology. Electronically signed by: Jailyn Martinez MD (12/14/2021 8:02 PM) [facility] DICTATED and SIGNED BY: JAILYN MARTINEZ MD DATE: 12/14/212000 IMAGING REPORT Signed PATIENT: DEON SANDS ACCOUNT: [id number] : 1940 LOCATION: ER AGE: 81 SEX: F EXAM STATUS: REG ER ORD. PHYSICIAN: KATHRYN RODRIGUEZ DO REASON: dyspnea, hypoxia, OMNI 350 80 ML IV PROCEDURE: CT ANGIOGRAPHY CHEST EXAMINATION: CT Pulmonary Angiogram INDICATION: Reason: dyspnea, hypoxia, OMNI 350 80 ML IV / Spl. Instructions: / History: COMPARISON: CT chest from 10/25/2021 TECHNIQUE: Using helical technique, CT data from the thoracic inlet through the upper abdomen was obtained during rapid IV contrast infusion. The examination was timed to the pulmonary arterial system to generate a CT angiographic study. 3D MIPS, sagittal and coronal reformats were generated. FINDINGS: Vascular: The study is diagnostic to the level of the segmental pulmonary arteries. Sc attered airspace disease degrades evaluation of the subsegmental arteries Pulmonary arteries: No evidence of acute or chronic pulmonary embolism. Pulmonary trunk is dilated measuring 3.4 centers maximal diameter suggestive of pulmonary arterial hypertension. Thoracic aorta: Normal in size with scattered atherosclerotic disease Coronary arteries: Normal origins. Moderate calcified coronary atherosclerosis. Systemic veins: Within normal limits. Heart: The heart is normal in size. No right heart strain No pericardial effusion. Chest: Lungs/Pleura: Scattered groundglass and consolidative opacities most of which demonstrate a tree-in-bud appearance in a apical basilar gradient most pronounced in the right middle and lower lobe as well as the lingula and left lower lobe. There is also associated mild peribronchial thickening.. No pleural effusion or focal pleural lesion. Mediastinum: No pathologic mediastinal or hilar adenopathy The visualized thyroid and the esophagus are unremarkable Axilla/Soft Tissue: No supraclavicular or axillary adenopathy. Regional soft tissues are within normal limits. Upper abdomen: Diffuse hepatic steatosis. No evidence of acute process in the visualized upper abdomen. Bones: No evidence of acute fractures or aggressive osseous lesions. Thoracic DISH IMPRESSION: Vascular: 1. No evidence of pulmonary embolism to the level of the segmental pulmonary arteries. 2. Dilated pulmonary arterial trunk suggestive of pulmonary arterial hypertension. Chest: 1. Diffuse scattered groundglass and consolidative opacities most of which demonstrate a tree-in-bud appearance suggestive of infectious or inflammatory bronchiolitis. Recommend follow-up to resolution. 2. Diffuse hepatic steatosis. PRQS compliance statement - One or more of the following individualized dose reduction techniques were utilized for this study: 1. Automated exposure control 2. Adjustment of the mA and/or kV according to patient size 3. Use of iterative reconstruction technique Electronically signed by: Page Lenz DO (12/14/2021 8:55 PM) [facility] DICTATED and SIGNED BY: PAGE LENZ DO DATE: 12/14/212047 Course & Med Decision Making: Course & Med Decision Making Pertinent Labs and Imaging studies reviewed. (See chart for details) The patient is saturating well on 2 L per nasal cannula supplemental oxygen. Blood cultures are obtained. She is empirically treated with IV cefepime and vancomycin for coverage of healthcare associated pneumonia. CT angio reveals no evidence of pulmonary embolus. She is resting comfortably. She denies any return of chest pressure or pain. She did have an episode of what appeared to be atrial fibrillation with rapid ventricular response. She does report that she felt some palpitations. Shortly after I obtained another EKG, her rhythm but can spontaneously converted back to sinus rhythm. Did order a dose of oral aspirin. I have discussed all the findings, differential diagnosis and plan of care with her. I have recommended hospitalization. She is comfortable with the plan of care. She is accepted for admission by Dr. Francis. Lenard Disclaimer: Lenard Disclaimer: This electronic medical record was generated, in whole or in part, using a voice recognition dictation system. Departure Departure Impression: Primary Impression: Respiratory failure with hypoxia Qualified Codes: J96.01 - Acute respiratory failure with hypoxia Additional Impressions: Healthcare-associated pneumonia Paroxysmal atrial fibrillation Disposition: ADMITTED INPATIENT Admitting Physician: MARY LOU (Dr. Francis) Condition: GUARDED Referrals: JOSEF RANCISCO JOHNSON MD (PCP) KATHRYN RODRIGUEZ DO Dec 14, 2021 18:28
[2021-12-14 19:06] LABS: BASO % 0 % (0-3); EOS # 0.1 x10^3/uL (0.0-0.7); EOS % 1 % (0-3); HEMATOCRIT 35.5 % (36.0-47.0); HEMOGLOBIN 11.3 g/dL (12.0-15.5); LYMPH % 8 % (24-48); MEAN CORPUSCULAR HEMOGLOBIN 26 pg (25-35); MEAN CORPUSCULAR HGB CONC 32 g/dL (31-37); MEAN CORPUSCULAR VOLUME 81 fL (79-100); MONO # 1.3 x10^3/uL (0.0-1.1); MONO % 10 % (0-9); NEUT # 10.3 x10^3/uL (1.8-7.7); NEUT % 81 % (31-73); PLATELET COUNT 200 x10^3/uL (140-400); RED BLOOD COUNT 4.39 x10^6/uL (3.50-5.40); RED CELL DISTRIBUTION WIDTH 20.6 % (11.5-14.5); WHITE BLOOD COUNT 12.7 x10^3/uL (4.0-11.0)
[2021-12-14 19:19] LABS: CALCIUM 8.6 mg/dL (8.5-10.1); CREATININE 1.4 mg/dL (0.6-1.0); GFR 36.3; POTASSIUM 3.9 mmol/L (3.5-5.1)
[2021-12-14 19:30] LABS: INFLUENZA A PATIENT NEGATIVE (NEGATIVE); INFLUENZA B PATIENT NEGATIVE (NEGATIVE)
[2021-12-14 19:33] LABS: ALBUMIN 2.9 g/dL (3.4-5.0); ALBUMIN/GLOBULIN RATIO 0.7 (1.0-1.7); MAGNESIUM 1.9 mg/dL (1.8-2.4); TOTAL BILIRUBIN 0.5 mg/dL (0.2-1.0); TOTAL PROTEIN 6.9 g/dL (6.4-8.2)
[2021-12-14 19:53] LABS: PLT ESTIMATE ADEQUATE (ADEQUATE)
[2021-12-14 19:54] LABS: ANISOCYTOSIS MOD; OVALOCYTES FEW; POLYCHROMASIA SLIGHT
[2021-12-14] MEDS ORDERED: CEFEPIME HCL IV Push 2 GM VIAL. IVP ONE (20:00)
[2021-12-14] MEDS ORDERED: VANCOMYCIN 1.5 GM in IV NORMAL SALINE 500ML BAG 500 ML IV ONE (20:00)
[2021-12-14] MEDS ORDERED: IV NORMAL SALINE 1000ML BAG 1,000 ML IV ONE (20:00)
--- NOTE | 2021-12-14 20:04 | RAD ---
Exam: Chest one view INDICATION: Cough TECHNIQUE: Frontal view of the chest Comparisons: 10/25/2021 FINDINGS: The cardiomediastinal silhouette and pulmonary vessels are within normal limits. Patchy bibasilar airspace disease. No pleural effusion. IMPRESSION: Bibasilar airspace disease may be infectious or inflammatory in etiology. Electronically signed by: Jailyn Palmer MD (12/14/2021 8:02 PM) [facility]
[2021-12-14] MEDS ORDERED: IOHEXOL 350 MG/ML 100 ML VIAL. IV ONE (20:15)
[2021-12-14] MEDS ORDERED: CONTRAST GIVEN. MC PRN (20:30)
[2021-12-14 20:39] LABS: BACTERIA,URINE FEW /HPF (0-FEW); RBC,URINE 0 /HPF (0-2)
--- NOTE | 2021-12-14 20:57 | RAD ---
EXAMINATION: CT Pulmonary Angiogram INDICATION: Reason: dyspnea, hypoxia, OMNI 350 80 ML IV / Spl. Instructions: / History: COMPARISON: CT chest from 10/25/2021 TECHNIQUE: Using helical technique, CT data from the thoracic inlet through the upper abdomen was obt ained during rapid IV contrast infusion. The examination was timed to the pulmonary arterial system t o generate a CT angiographic study. 3D MIPS, sagittal and coronal reformats were generated. FINDINGS: Vascular: The study is diagnostic to the level of the segmental pulmonary arteries. Scattered airspace disease degrades evaluation of the subsegmental arteries Pulmonary arteries: No evidence of acute or chronic pulmonary embolism. Pulmonary trunk is dilated me asuring 3.4 centers maximal diameter suggestive of pulmonary arterial hypertension. Thoracic aorta: Normal in size with scattered atherosclerotic disease Coronary arteries: Normal origins. Moderate calcified coronary atherosclerosis. Systemic veins: Within normal limits. Heart: The heart is normal in size. No right heart strain No pericardial effusion. Chest: Lungs/Pleura: Scattered groundglass and consolidative opacities most of which demonstrate a tree-in-b ud appearance in a apical basilar gradient most pronounced in the right middle and lower lobe as well as the lingula and left lower lobe. There is also associated mild peribronchial thickening.. No ple ural effusion or focal pleural lesion. Mediastinum: No pathologic mediastinal or hilar adenopathy The visualized thyroid and the esophagus a re unremarkable Axilla/Soft Tissue: No supraclavicular or axillary adenopathy. Regional soft tissues are within [place] l limits. Upper abdomen: Diffuse hepatic steatosis. No evidence of acute process in the visualized upper abdome n. Bones: No evidence of acute fractures or aggressive osseous lesions. Thoracic DISH IMPRESSION: Vascular: 1. No evidence of pulmonary embolism to the level of the segmental pulmonary arteries. 2. Dilated pulmonary arterial trunk suggestive of pulmonary arterial hypertension. Chest: 1. Diffuse scattered groundglass and consolidative opacities most of which demonstrate a tree-in-bud appearance suggestive of infectious or inflammatory bronchiolitis. Recommend follow-up to resolution. 2. Diffuse hepatic steatosis. PRQS compliance statement - One or more of the following individualized dose reduction techniques wer e utilized for this study: 1. Automated exposure control 2. Adjustment of the mA and/or kV according to patient size 3. Use of iterative reconstruction technique Electronically signed by: Sergio Lenz DO (12/14/2021 8:55 PM) [facility]
[2021-12-14] MEDS ORDERED: ASPIRIN ENTERIC COATED 325 MG TABLET.DR. PO ONE (22:00)
[2021-12-14] MEDS ORDERED: ALBUTEROL SULFATE 2.5 MG/3 ML NEBU. NEB PRN (22:30)
[2021-12-14] MEDS ORDERED: hydrALAZINE 20 MG/ML VIAL. IVP PRN (22:30)
[2021-12-14] MEDS ORDERED: ONDANSETRON PF 4 MG/2 ML VIAL. IVP PRN (22:30)
[2021-12-14] MEDS ORDERED: fentaNYL PF VIAL 100 MCG/2 ML VIAL IVP PRN (22:30)
[2021-12-14 23:11] VITALS: BP 145/60
--- NOTE | 2021-12-14 23:20 | NUR ---
The patient, DEON SANDS, 81 y/o, F admitted by NEELA AYALA MD, was given written information regarding hospital policies, unit procedures and contact persons. Patient assessed and assisted to restroom using walker for unsteady gait. Patient SOA with exertion, Oxygen applied when back to bed. Patient oriented to bed, room, call light and POC. Call light in reach, Patient instructed on need to call for assistance to get out of bed. Will monitor. Valuables were checked and Patient has wallet with some cabezas but declined lock up of valuables with security.
[2021-12-15] MEDS: PSYLLIUM HUSK (SUGAR FREE) 1 PKT PACKET PO SCH ×2 (00:39→19:59)
[2021-12-15] MEDS: METOPROLOL IV PUSH 5 MG/5 ML VIAL. IVP PRN (01:37)
--- NOTE | 2021-12-15 01:49 | NUR ---
Patient had period of 5 minutes sustained A-fib heart rate, at 0137 was B/P 127/52 HR 140, Metoprolol 5 mg slow IVP over 4 minutes given. at 0142 B/P 109/62, HR 92. Will continue to monitor.
[2021-12-15 03:21] VITALS: BP 105/54
[2021-12-15 03:54] LABS: BASO % 0 % (0-3); EOS # 0.1 x10^3/uL (0.0-0.7); EOS % 1 % (0-3); HEMATOCRIT 34.6 % (36.0-47.0); HEMOGLOBIN 10.8 g/dL (12.0-15.5); LYMPH # 0.9 x10^3/uL (1.0-4.8); LYMPH % 8 % (24-48); MEAN CORPUSCULAR HEMOGLOBIN 25 pg (25-35); MEAN CORPUSCULAR HGB CONC 31 g/dL (31-37); MEAN CORPUSCULAR VOLUME 81 fL (79-100); MONO # 1.3 x10^3/uL (0.0-1.1); MONO % 10 % (0-9); NEUT # 9.7 x10^3/uL (1.8-7.7); NEUT % 81 % (31-73); PLATELET COUNT 182 x10^3/uL (140-400); RED BLOOD COUNT 4.28 x10^6/uL (3.50-5.40); RED CELL DISTRIBUTION WIDTH 20.4 % (11.5-14.5)
--- NOTE | 2021-12-15 04:01 | EKG ---
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
--- NOTE | 2021-12-15 04:04 | EKG ---
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
[2021-12-15 04:06] LABS: ALBUMIN 2.6 g/dL (3.4-5.0); ALBUMIN/GLOBULIN RATIO 0.7 (1.0-1.7); CALCIUM 8.3 mg/dL (8.5-10.1); CREATININE 1.1 mg/dL (0.6-1.0); GFR 47.9; POTASSIUM 3.8 mmol/L (3.5-5.1); TOTAL BILIRUBIN 0.5 mg/dL (0.2-1.0); TOTAL PROTEIN 6.2 g/dL (6.4-8.2)
[2021-12-15] MEDS: HEPARIN for SUB-Q USE 5,000 UNIT/ML VIAL. SQ SCH ×3 (06:13→21:02)
[2021-12-15 07:00] VITALS: BP 125/60
[2021-12-15] MEDS: BUDESONIDE 0.5 MG/2 ML NEBU. NEB SCH ×2 (07:34→20:15)
[2021-12-15] MEDS: IPRATRPIUM/ALBUTEROL 0.5/2.5MG 3 ML NEBU. NEB SCH ×4 (07:34→20:15)
--- NOTE | 2021-12-15 08:16 | PDOC1 ---
History and Physical Date of Admission Date of Admission DATE: 12/15/21 TIME: 08:07 Identification/Chief Complaint Chief Complaint Cough, shortness of breath Source Source: Patient History of Present Illness History of Present Illness Ms Weber is a 81 year old female w/ PMHx HTN, GERD, Rheumatoid arthritis, neuropathy who presents with report of greater than 2-week history of cough with purulent sputum, shortness of breath. She denies nausea, vomiting, diarrhea. She denies abdominal pain. He does report some chest pressure intermittently for the past 2 weeks as well. She has attributed the chest pressure to c oughing. She denies hemoptysis. She is currently residing in an assisted living facility, and she reports that multiple staff members and other patients living that have had similar symptoms. She has been fully vaccinated against COVID-19, including booster, she has had an influenza vaccine as well. She has not recently been hospitalized, denies recent travel, denies recent surgery. She does have a chronically swollen right lower extremity, which is unchanged. She has chronic lower extremity and foot pain secondary to diabetic neuropathy. She is hypoxic on room air, she does not normally require supplemental oxygen. She quit smoking many decades ago. She has no known history of COPD or pulmonary disease. She did have outpatient eval by pulm and CT chest outpatient, she doesn't remember the outcome EKG #1: 1903. Sinus, Rate is 91 bpm, left axis, no ST elevation or TWI EKG #2: 2329. Atrial fibrillation with RVR, Rate is 132 bpm, left axis, no ST elevation or TWI Chest radiograph with bibasilar airspace disease. Given her symptoms and elevated D-dimer she underwent CT pulmonary angiogram revealing no pulmonary embolism but did reveal dilated pulmonary artery trunk suggesting pulmonary artery hypertension as well as diffuse scattered bilateral groundglass consolidative opacities with tree-in-bud appearance and hepatic steatosis incidentally Labs with WBC 12.7, Hb 11.3, platelets 200, NA 139, K3.9, BUN 31, CR 1.4, glucose 139, albumin 2.9 otherwise LFTs within normal laboratory limits, high- sensitivity troponin is 30, NT proBNP is 847, urinalysis with moderate leuk esterase, rapid influenza negative, rapid COVID-19 negative, D-dimer 1.35 Current Problem List Problem List Problems Medical Problems: (1) Healthcare-associated pneumonia Status: Acute (2) Paroxysmal atrial fibrillation Status: Acute (3) Respiratory failure with hypoxia Status: Acute Current Medications Current Medications Current Medications Cefepime HCl (Maxipime) 2 gm 1X ONCE IVP Last administered on 12/14/21at 20:59; Start 12/14/21 at 20:00; Stop 12/14/21 at 20:01; Status DC Vancomycin HCl 1.5 gm/Sodium Chloride 500 ml @ 250 mls/hr 1X ONCE IV Last administered on 12/14/21at 21:00; Start 12/14/21 at 20:00; Stop 12/14/21 at 21:59; Status DC Sodium Chloride 1,000 ml @ 1,000 mls/hr 1X ONCE IV Last administered on 12/14/21at 20:55; Start 12/14/21 at 20:00; Stop 12/14/21 at 20:59; Status DC Iohexol (Omnipaque 350 Mg/ml) 80 ml 1X ONCE IV Last administered on 12/14/21at 20:30; Start 12/14/21 at 20:15; Stop 12/14/21 at 20:23; Status DC Info (CONTRAST GIVEN -- Rx MONITORING) 1 each PRN DAILY PRN MC SEE COMMENTS; Start 12/14/21 at 20:30; Stop 12/16/21 at 20:29 Diltiazem HCl (Cardizem Iv Push) 10 mg 1X ONCE IVP ; Start 12/14/21 at 22:00; Stop 12/14/21 at 22:01; Status DC Aspirin (Ecotrin) 325 mg 1X ONCE PO Last administered on 12/15/21at 00:39; Start 12/14/21 at 22:00; Stop 12/14/21 at 22:01; Status DC Acetaminophen (Tylenol) 650 mg PRN Q6HRS PRN PO MILD PAIN / TEMP > 100.3'F; Start 12/14/21 at 22:30 Fentanyl Citrate (Fentanyl 2ml Vial) 25 mcg PRN Q3HRS PRN IVP SEVERE PAIN 7-10; Start 12/14/21 at 22:30 Albuterol/ Ipratropium (Duoneb) 3 ml RTQID NEB Last administered on 12/15/21at 07:34; Start 12/15/21 at 08:00 Albuterol Sulfate (Ventolin Neb Soln) 2.5 mg PRN Q4HRS PRN NEB SHORTNESS OF BREATH; Start 12/14/21 at 22:30 Psyllium Hydrophilic Mucilloid (Metamucil Fiber Packet) 1 pkt QHS PO Last administered on 12/15/21at 00:39; Start 12/14/21 at 23:00 Budesonide (Pulmicort) 0.5 mg RTBID NEB Last administered on 12/15/21at 07:34; Start 12/15/21 at 08:00 Guaifenesin (Robitussin Dm) 10 ml PRN Q6HRS PRN PO COUGH; Start 12/14/21 at 22:30 Olanzapine (ZyPREXA ZYDIS) 5 mg PRN BID PRN PO ANXIETY / AGITATION; Start 12/14/21 at 22:30 Ondansetron HCl (Zofran) 4 mg PRN Q4HRS PRN IVP NAUSEA/VOMITING 1ST CHOICE; Start 12/14/21 at 22:30 Tramadol HCl (Ultram) 50 mg PRN Q6HRS PRN PO MODERATE PAIN 4-6; Start 12/14/21 at 22:30 Hydralazine HCl (Apresoline Inj) 10 mg PRN Q4HRS PRN IVP ELEVATED BP, SEE COMMENTS; Start 12/14/21 at 22:30 Heparin Sodium (Porcine) (Heparin Sodium) 5,000 unit Q8HRS SQ Last administered on 12/15/21at 06:13; Start 12/15/21 at 06:00 Metoprolol Tartrate (Lopressor Vial) 5 mg PRN Q4HRS PRN IVP SEE ADMIN INSTRUCTIONS Last administered on 12/15/21at 01:37; Start 12/15/21 at 01:30 Active Scripts Active Hydrocodone-Acetamin 5-325 mg (Hydrocodone/Acetaminophen) 1 Each Tablet 1 Each PO Q6HRS PRN 7 Days Reported [Creon] Tylenol Extra Strength (Acetaminophen) 500 Mg Tablet 500 Mg PO BID Calcium (Calcium Carbonate) 500 Mg Tablet 500 Mg PO TID Protonix (Pantoprazole Sodium) 20 Mg Tablet.dr 20 Mg PO DAILY Folic Acid 0.4 Mg Tablet 0.4 Mg PO DAILY Vitamin D3 (Vitamin D) 125 Mcg Capsule 125 Mcg PO DAILY 5,000 UNITS = 125 MCG Methotrexate (Methotrexate Sodium) 2.5 Mg Tablet 6 Tab PO WEEKLY Ocuvite Tablet (Vit A,C & E/Lutein/Minerals) 1 Each Tablet 1 Tab PO DAILY 30 Days Probiotic (Lactobacillus Combo No.10) 1 Each Capsule 1 Tab PO DAILY 30 Days Lyrica (Pregabalin) 150 Mg Capsule 150 Mg PO TID 30 Days Allergies Allergies: Coded Allergies: No Known Drug Allergies (Unverified , 07/30/21) ROS General: YES: Fatigue, Malaise; No: Chills, Night Sweats, Appetite, Other PSYCHOLOGICAL ROS: No: Anxiety, Behavioral Disorder, Concentration difficultie, Decreased libido, Depression, Disorientation, Hallucinations, Hostility, Irritablity, Memory difficulties, Mood Swings, Obsessive thoughts, Physical abuse, Sexual abuse, Sleep disturbances, Suicidal ideation, Other Eyes: No Blurry vision, No Decreased vision, No Double vision, No Dry eyes, No Excessive tearing, No Eye Pain, No Itchy Eyes, No Loss of vision, No Macario tophobia, No Scotomata, No Uses contacts, No Uses glasses, No Other HEENT: No: Heacaches, Visual Changes, Hearing change, Nasal congestion, Nasal discharge, Oral lesions, Sinus pain, Sore Throat, Epistaxis, Sneezing, Snoring, Tinnitus, Vertigo, Vocal changes, Other ALLERGY AND IMMUNOLOGY: No: Hives, Insect Bite Sensitivity, Itchy/Watery Eyes, Nasal Congestion, Post Nasal Drip, Seasonal Allergies, Other Hematological and Lymphatic: No: Bleeding Problems, Blood Clots, Blood Transfusions, Brusing, Night Sweats, Pallor, Swollen Lymph Nodes, Other ENDOCRINE: No: Breast Changes, Galactorrhea, Hair Pattern Changes, Hot Flashes, Malaise/lethargy, Mood Swings, Palpitations, Polydipsia/polyuria, Skin Changes, Temperature Intolerance, Unexpected Weight Changes, Other Breast: No New/Changing Breast Lumps, No Nipple changes, No Nipple discharge, No Other Respiratory: YES: Cough, Shortness of breath, SOB with excertion; No: Hemoptysis, Orthopnea, Pleuritic Pain, Sputum Changes, Stridor, Tachypnea, Wheezing, Other Cardiovascular: No Chest Pain, No Palpitations, No Orthopnea, No Paroxysmal Noc. Dyspnea, No Edema, No Lt Headedness, No Other Gastrointestinal: No Nausea, No Vomiting, No Abdominal Pain, No Diarrhea, No Constipation, No Melena, No Hematochezia, No Other Genitourinary: YES Frequency, YES Urgency; No Dysuria, No Incontinence, No Hematuria, No Retention, No Discharge, No Pain, No Flank Pain, No Other, No , No , No , No , No , No , No Musculoskeletal: Yes Joint Swelling, Yes Muscular Weakness; No Gait Disturbance, No Joint Pain, No Joint Stiffness, No Muscle Pain, No Pain In:, No Swelling In:, No Other Neurological: No Behavorial Changes, No Bowel/Bladder ControlChng, No Confusion, No Dizziness, No Gait Disturbance, No Headaches, No Impaired Coord/balance, No Memory Loss, No Numbness/Tingling, No Seizures, No Speech Problems, No Tremors, No Visual Changes, No Weakness, No Other Skin: No Dry Skin, No Eczema, No Hair Changes, No Lumps, No Mole Changes, No Mottling, No Nail Changes, No Pruritus, No Rash, No Skin Lesion Changes, No Other, No Acne Physical Exam General: Alert, Oriented X3, Cooperative, moderate distress HEENT: Atraumatic, PERRLA, EOMI, Mucous membr. moist/pink Lungs: Other (Bibasilar crackles) Heart: S1S2, RRR, no thrills, no rubs, no gallops, no murmurs Abdomen: Normal bowel sounds, Soft, No tenderness, No hepatosplenomegaly, No masses Rectal Exam: not examined Extremities: No clubbing, No cyanosis, Normal pulses, No tenderness/swelling, O ther (Right>Left swelling) Skin: No rashes, No breakdown, No significant lesion Neuro: Normal speech, Strength at 5/5 X4 ext, Normal tone, Sensation intact, Cranial nerves 3-12 NL, Reflexes 2+ Psych/Mental Status: Mental status NL, Mood NL Vitals Vitals Vital Signs Date Time Temp Pulse Resp B/P (MAP) Pulse Ox O2 Delivery O2 Flow Rate FiO2 12/15/21 07:34 98 Nasal Cannula 2.0 12/15/21 03:21 98.9 80 20 105/54 (71) 98.9 Labs Labs Laboratory Tests Test 12/14/21 18:44 12/14/21 18:56 12/14/21 20:20 12/15/21 03:15 White Blood Count 12.7 x10^3/uL (4.0-11.0) 12.0 x10^3/uL (4.0-11.0) Red Blood Count 4.39 x10^6/uL (3.50-5.40) 4.28 x10^6/uL (3.50-5.40) Hemoglobin 11.3 g/dL (12.0-15.5) 10.8 g/dL (12.0-15.5) Hematocrit 35.5 % (36.0-47.0) 34.6 % (36.0-47.0) Mean Corpuscular Volume 81 fL (79-100) 81 fL (79-100) Mean Corpuscular Hemoglobin 26 pg (25-35) 25 pg (25-35) Mean Corpuscular Hemoglobin Concent 32 g/dL (31-37) 31 g/dL (31-37) Red Cell Distribution Width 20.6 % (11.5-14.5) 20.4 % (11.5-14.5) Platelet Count 200 x10^3/uL (140-400) 182 x10^3/uL (140-400) Neutrophils (%) (Auto) 81 % (31-73) 81 % (31-73) Lymphocytes (%) (Auto) 8 % (24-48) 8 % (24-48) Monocytes (%) (Auto) 10 % (0-9) 10 % (0-9) Eosinophils (%) (Auto) 1 % (0-3) 1 % (0-3) Basophils (%) (Auto) 0 % (0-3) 0 % (0-3) Neutrophils # (Auto) 10.3 x10^3/uL (1.8-7.7) 9.7 x10^3/uL (1.8-7.7) Lymphocytes # (Auto) 1.0 x10^3/uL (1.0-4.8) 0.9 x10^3/uL (1.0-4.8) Monocytes # (Auto) 1.3 x10^3/uL (0.0-1.1) 1.3 x10^3/uL (0.0-1.1) Eosinophils # (Auto) 0.1 x10^3/uL (0.0-0.7) 0.1 x10^3/uL (0.0-0.7) Basophils # (Auto) 0.0 x10^3/uL (0.0-0.2) 0.0 x10^3/uL (0.0-0.2) Platelet Estimate Adequate (ADEQUATE) Polychromasia Slight Anisocytosis Mod Ovalocytes Few D-Dimer (Evangelina) 1.35 ug/mlFEU (0.00-0.50) Sodium Level 139 mmol/L (136-145) 140 mmol/L (136-145) Potassium Level 3.9 mmol/L (3.5-5.1) 3.8 mmol/L (3.5-5.1) Chloride Level 103 mmol/L (98-107) 105 mmol/L (98-107) Carbon Dioxide Level 32 mmol/L (21-32) 32 mmol/L (21-32) Anion Gap 4 (6-14) 3 (6-14) Blood Urea Nitrogen 31 mg/dL (7-20) 22 mg/dL (7-20) Creatinine 1.4 mg/dL (0.6-1.0) 1.1 mg/dL (0.6-1.0) Estimated GFR (Cockcroft-Gault) 36.3 47.9 BUN/Creatinine Ratio 22 (6-20) 20 (6-20) Glucose Level 139 mg/dL (70-99) 157 mg/dL (70-99) Lactic Acid Level 1.2 mmol/L (0.4-2.0) Calcium Level 8.6 mg/dL (8.5-10.1) 8.3 mg/dL (8.5-10.1) Magnesium Level 1.9 mg/dL (1.8-2.4) Total Bilirubin 0.5 mg/dL (0.2-1.0) 0.5 mg/dL (0.2-1.0) Aspartate Amino Transf (AST/SGOT) 23 U/L (15-37) 18 U/L (15-37) Alanine Aminotransferase (ALT/SGPT) 25 U/L (14-59) 21 U/L (14-59) Alkaline Phosphatase 80 U/L (46-116) 68 U/L (46-116) Creatine Kinase 179 U/L (26-192) Troponin I High Sensitivity 30 ng/L (4-50) AJ-Kuh-S-Type Natriuretic Peptide 847 pg/mL (0-449) Total Protein 6.9 g/dL (6.4-8.2) 6.2 g/dL (6.4-8.2) Albumin 2.9 g/dL (3.4-5.0) 2.6 g/dL (3.4-5.0) Albumin/Globulin Ratio 0.7 (1.0-1.7) 0.7 (1.0-1.7) Influenza Type A Antigen Negative (NEGATIVE) Influenza Type B Antigen Negative (NEGATIVE) SARS-CoV-2 Antigen (Rapid) Negative (NEGATIVE) Urine Collection Type Unknown Urine Color (Auto) Yellow Urine Turbidity Hazy Urine pH (Auto) 5.5 (<5.0-8.0) Urine Specific [place] 1.023 (1.000-1.030) Urine Protein (Auto) Negative mg/dL (Negative) Urine Glucose (Auto)(UA) Negative mg/dL (Negative) Urine Ketones (Auto) Negative mg/dL (Negative) Urine Blood (Auto) Negative (Negative) Urine Nitrite Negative (Negative) Urine Bilirubin (Auto) Negative (Negative) Urine Urobilinogen (Auto) 4 mg/dL (Normal) Urine Leukocyte Esterase (Auto) Moderate (Negative) Urine RBC 0 /HPF (0-2) Urine WBC 5-10 /HPF (0-4) Urine Squamous Epithelial Cells Mod /LPF Urine Bacteria Few /HPF (0-FEW) Urine Mucus Slight /LPF Laboratory Tests Test 12/14/21 18:44 12/14/21 18:56 12/14/21 20:20 12/15/21 03:15 White Blood Count 12.7 x10^3/uL (4.0-11.0) 12.0 x10^3/uL (4.0-11.0) Red Blood Count 4.39 x10^6/uL (3.50-5.40) 4.28 x10^6/uL (3.50-5.40) Hemoglobin 11.3 g/dL (12.0-15.5) 10.8 g/dL (12.0-15.5) Hematocrit 35.5 % (36.0-47.0) 34.6 % (36.0-47.0) Mean Corpuscular Volume 81 fL (79-100) 81 fL (79-100) Mean Corpuscular Hemoglobin 26 pg (25-35) 25 pg (25-35) Mean Corpuscular Hemoglobin Concent 32 g/dL (31-37) 31 g/dL (31-37) Red Cell Distribution Width 20.6 % (11.5-14.5) 20.4 % (11.5-14.5) Platelet Count 200 x10^3/uL (140-400) 182 x10^3/uL (140-400) Neutrophils (%) (Auto) 81 % (31-73) 81 % (31-73) Lymphocytes (%) (Auto) 8 % (24-48) 8 % (24-48) Monocytes (%) (Auto) 10 % (0-9) 10 % (0-9) Eosinophils (%) (Auto) 1 % (0-3) 1 % (0-3) Basophils (%) (Auto) 0 % (0-3) 0 % (0-3) Neutrophils # (Auto) 10.3 x10^3/uL (1.8-7.7) 9.7 x10^3/uL (1.8-7.7) Lymphocytes # (Auto) 1.0 x10^3/uL (1.0-4.8) 0.9 x10^3/uL (1.0-4.8) Monocytes # (Auto) 1.3 x10^3/uL (0.0-1.1) 1.3 x10^3/uL (0.0-1.1) Eosinophils # (Auto) 0.1 x10^3/uL (0.0-0.7) 0.1 x10^3/uL (0.0-0.7) Basophils # (Auto) 0.0 x10^3/uL (0.0-0.2) 0.0 x10^3/uL (0.0-0.2) Platelet Estimate Adequate (ADEQUATE) Polychromasia Slight Anisocytosis Mod Ovalocytes Few D-Dimer (Evangelina) 1.35 ug/mlFEU (0.00-0.50) Sodium Level 139 mmol/L (136-145) 140 mmol/L (136-145) Potassium Level 3.9 mmol/L (3.5-5.1) 3.8 mmol/L (3.5-5.1) Chloride Level 103 mmol/L (98-107) 105 mmol/L (98-107) Carbon Dioxide Level 32 mmol/L (21-32) 32 mmol/L (21-32) Anion Gap 4 (6-14) 3 (6-14) Blood Urea Nitrogen 31 mg/dL (7-20) 22 mg/dL (7-20) Creatinine 1.4 mg/dL (0.6-1.0) 1.1 mg/dL (0.6-1.0) Estimated GFR (Cockcroft-Gault) 36.3 47.9 BUN/Creatinine Ratio 22 (6-20) 20 (6-20) Glucose Level 139 mg/dL (70-99) 157 mg/dL (70-99) Lactic Acid Level 1.2 mmol/L (0.4-2.0) Calcium Level 8.6 mg/dL (8.5-10.1) 8.3 mg/dL (8.5-10.1) Magnesium Level 1.9 mg/dL (1.8-2.4) Total Bilirubin 0.5 mg/dL (0.2-1.0) 0.5 mg/dL (0.2-1.0) Aspartate Amino Transf (AST/SGOT) 23 U/L (15-37) 18 U/L (15-37) Alanine Aminotransferase (ALT/SGPT) 25 U/L (14-59) 21 U/L (14-59) Alkaline Phosphatase 80 U/L (46-116) 68 U/L (46-116) Creatine Kinase 179 U/L (26-192) Troponin I High Sensitivity 30 ng/L (4-50) SC-Beb-D-Type Natriuretic Peptide 847 pg/mL (0-449) Total Protein 6.9 g/dL (6.4-8.2) 6.2 g/dL (6.4-8.2) Albumin 2.9 g/dL (3.4-5.0) 2.6 g/dL (3.4-5.0) Albumin/Globulin Ratio 0.7 (1.0-1.7) 0.7 (1.0-1.7) Influenza Type A Antigen Negative (NEGATIVE) Influenza Type B Antigen Negative (NEGATIVE) SARS-CoV-2 Antigen (Rapid) Negative (NEGATIVE) Urine Collection Type Unknown Urine Color (Auto) Yellow Urine Turbidity Hazy Urine pH (Auto) 5.5 (<5.0-8.0) Urine Specific [place] 1.023 (1.000-1.030) Urine Protein (Auto) Negative mg/dL (Negative) Urine Glucose (Auto)(UA) Negative mg/dL (Negative) Urine Ketones (Auto) Negative mg/dL (Negative) Urine Blood (Auto) Negative (Negative) Urine Nitrite Negative (Negative) Urine Bilirubin (Auto) Negative (Negative) Urine Urobilinogen (Auto) 4 mg/dL (Normal) Urine Leukocyte Esterase (Auto) Moderate (Negative) Urine RBC 0 /HPF (0-2) Urine WBC 5-10 /HPF (0-4) Urine Squamous Epithelial Cells Mod /LPF Urine Bacteria Few /HPF (0-FEW) Urine Mucus Slight /LPF Images Images Chest radiograph: The cardiomediastinal silhouette and pulmonary vessels are within normal limits. Patchy bibasilar airspace disease. No pleural effusion. IMPRESSION: Bibasilar airspace disease may be infectious or inflammatory in etiology. CT ANGIOGRAPHY CHEST Vascular: The study is diagnostic to the level of the segmental pulmonary arteries. Scattered airspace disease degrades evaluation of the subsegmental arteries Pulmonary arteries: No evidence of acute or chronic pulmonary embolism. Pulmonary trunk is dilated measuring 3.4 centers maximal diameter suggestive of pulmonary arterial hypertension. Thoracic aorta: Normal in size with scattered atherosclerotic disease Coronary arteries: Normal origins. Moderate calcified coronary atherosclerosis. Systemic veins: Within normal limits. Heart: The heart is normal in size. No right heart strain No pericardial effusion. Chest: Lungs/Pleura: Scattered groundglass and consolidative opacities most of which demonstrate a tree-in-bud appearance in a apical basilar gradient most pronounced in the right middle and lower lobe as well as the lingula and left lower lobe. There is also associated mild peribronchial thickening.. No pleural effusion or focal pleural lesion. Mediastinum: No pathologic mediastinal or hilar adenopathy The visualized thyroid and the esophagus are unremarkable Axilla/Soft Tissue: No supraclavicular or axillary adenopathy. Regional soft tissues are within normal limits. Upper abdomen: Diffuse hepatic steatosis. No evidence of acute process in the visualized upper abdomen. Bones: No evidence of acute fractures or aggressive osseous lesions. Thoracic DISH IMPRESSION: Vascular: 1. No evidence of pulmonary embolism to the level of the segmental pulmonary arteries. 2. Dilated pulmonary arterial trunk suggestive of pulmonary arterial hypertension. Chest: 1. Diffuse scattered groundglass and consolidative opacities most of which demonstrate a tree-in-bud appearance suggestive of infectious or inflammatory bronchiolitis. Recommend follow-up to resolution. 2. Diffuse hepatic steatosis. VTE Prophylaxis Ordered VTE Prophylaxis Devices: No VTE Pharmacological Prophylaxi: Yes Assessment/Plan Assessment/Plan Acute respiratory failure with hypoxia - due to bronchiectasis/HCAP. Will wean O2 as tolerated. Consult pulmonology who she sees outpatient. Possible rheuma toid lung? Abnormal CXR - this is Healthcare-associated pneumonia given assisted living facility setting. Given bronciectasis will treat for pseudomonas, gram negative. 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 Will have pulm assess for possible lung tox given abnormal CT FEN - Cardiac diet PPX - lovenox FULL CODE DIspo - inpatient Justifications for Admission Other Justification NEELA AYALA MD Dec 15, 2021 08:16
[2021-12-15 10:43] VITALS: BP 117/55
[2021-12-15] MEDS ORDERED: LUTE1CAP5 PO (10:57)
[2021-12-15] MEDS ORDERED: LACT1TAB11 PO (10:57)
[2021-12-15] MEDS: ACETAMINOPHEN 325 MG TABLET. PO PRN (13:24)
[2021-12-15] MEDS: PREGABALIN 75 MG CAPSULE PO SCH ×2 (13:24→20:00)
[2021-12-15] MEDS: guaiFENesin DM 200MG/20MG 10 ML SYRUP PO PRN ×2 (13:24→23:12)
[2021-12-15] MEDS: CALCIUM CARBONATE 500 MG TABLET PO SCH ×2 (14:23→19:59)
[2021-12-15 14:40] VITALS: BP 102/56
--- NOTE | 2021-12-15 16:30 | RAD ---
INDICATION: Reason: Pain, swelling, concern for DVT / Spl. Instructions: / History: COMPARISON: None. TECHNIQUE: Grayscale, color and doppler ultrasound images were obtained of the bilateral lower extrem ity venous vasculature. RIGHT: No thrombus identified in the common femoral vein, femoral vein, popliteal vein or visualized calf ve ins. LEFT: No thrombus identified in the common femoral vein, femoral vein, popliteal vein or visualized calf ve ins. IMPRESSION: * No thrombus identified in deep venous system of bilateral lower extremities. Electronically signed by: Douglas Duran MD (12/15/2021 4:28 PM) [id number]
[2021-12-15 19:38] VITALS: BP 119/53
[2021-12-15] MEDS: traMADol 50 MG TABLET PO PRN (20:00)
[2021-12-15] MEDS: CEFEPIME HCL IV Push 2 GM VIAL. IVP SCH (20:01)
[2021-12-15 22:32] VITALS: BP 128/52
[2021-12-16 02:13] VITALS: BP 102/61
[2021-12-16] MEDS: traMADol 50 MG TABLET PO PRN (04:03)
[2021-12-16] MEDS: HEPARIN for SUB-Q USE 5,000 UNIT/ML VIAL. SQ SCH ×3 (05:01→22:32)
[2021-12-16 06:08] LABS: BASO % 0 % (0-3); EOS # 0.1 x10^3/uL (0.0-0.7); EOS % 2 % (0-3); HEMATOCRIT 36.7 % (36.0-47.0); HEMOGLOBIN 11.6 g/dL (12.0-15.5); LYMPH # 0.7 x10^3/uL (1.0-4.8); LYMPH % 8 % (24-48); MEAN CORPUSCULAR HEMOGLOBIN 26 pg (25-35); MEAN CORPUSCULAR HGB CONC 32 g/dL (31-37); MEAN CORPUSCULAR VOLUME 81 fL (79-100); MONO # 0.7 x10^3/uL (0.0-1.1); MONO % 8 % (0-9); NEUT % 82 % (31-73); PLATELET COUNT 196 x10^3/uL (140-400); RED BLOOD COUNT 4.54 x10^6/uL (3.50-5.40); RED CELL DISTRIBUTION WIDTH 20.3 % (11.5-14.5); WHITE BLOOD COUNT 8.5 x10^3/uL (4.0-11.0)
[2021-12-16 06:21] LABS: CALCIUM 9.5 mg/dL (8.5-10.1); CREATININE 0.9 mg/dL (0.6-1.0); GFR 60.4
[2021-12-16 07:00] VITALS: BP 115/54
[2021-12-16] MEDS: BUDESONIDE 0.5 MG/2 ML NEBU. NEB SCH ×4 (07:54→20:03)
[2021-12-16] MEDS: IPRATRPIUM/ALBUTEROL 0.5/2.5MG 3 ML NEBU. NEB SCH ×4 (07:54→20:03)
[2021-12-16] MEDS: CHOLECALCIFEROL (VITAMIN D3) 5,000 UNIT CAPSULE PO SCH (08:17)
[2021-12-16] MEDS: PREGABALIN 75 MG CAPSULE PO SCH ×3 (08:18→22:20)
[2021-12-16] MEDS: CALCIUM CARBONATE 500 MG TABLET PO SCH ×3 (08:19→22:20)
[2021-12-16] MEDS: PANTOPRAZOLE 40 MG TABLET.DR. PO SCH (08:19)
--- NOTE | 2021-12-16 10:12 | PDOC ---
[employer] PROGRESS NOTE Date of Service DOS: DATE: 12/16/21 TIME: 10:11 Chief Complaint Chief Complaint Acute respiratory failure with hypoxia - due to bronchiectasis/HCAP. Will wean O2 as tolerated. Consult pulmonology who she sees outpatient. Possible rheumatoid lung vs MAC? Gram positive blood cultures - will cont cefepime, f/u results. Abnormal CXR - this is Healthcare-associated pneumonia given assisted living facility setting. Given bronciectasis will treat for pseudomonas, gram negative. Consult pulm Paroxysmal atrial fibrillation - back in sinus, will monitor Severe protein calorie malnutrition - scratch finisher to see GERD - PPI Neuropathy - non-diabetic, on lyrica Right leg pain and swellling - she notes negative outpatient doppler a year ago, will repeat given her symptoms now Dysuria - with leuk esterase positive will treat as UTI, f/u culture results Rheumatoid arthritis - on weekly MTX. Will have pulm assess for possible lung tox given abnormal CT FEN - Cardiac diet PPX - lovenox FULL CODE DIspo - inpatient History of Present Illness History of Present Illness Ms Weber is a 81 year old female w/ PMHx HTN, GERD, Rheumatoid arthritis, neur opathy who presents with report of greater than 2-week history of cough with purulent sputum, shortness of breath. She denies nausea, vomiting, diarrhea. She denies abdominal pain. He does report some chest pressure intermittently for the past 2 weeks as well. She has attributed the chest pressure to coughing. She denies hemoptysis. She is currently residing in an assisted [facility] facility, and she reports that multiple staff members and other patients living that have had similar symptoms. She has been fully vaccinated against COVID-19, including booster, she has had an influenza vaccine as well. She has not recently been hospitalized, denies recent travel, denies recent surgery. She does have a chronically swollen right lower extremity, which is unchanged. She has chronic lower extremity and foot pain secondary to diabetic neuropathy. She is hypoxic on room air, she does not normally require supplemental oxygen. She quit smoking many decades ago. She has no known history of COPD or pulmonary disease. She did have outpatient eval by pulm and CT chest outpatient, she doesn't remember the outcome EKG #1: 1903. Sinus, Rate is 91 bpm, left axis, no ST elevation or TWI EKG #2: 2329. Atrial fibrillation with RVR, Rate is 132 bpm, left axis, no ST elevation or TWI Chest radiograph with bibasilar airspace disease. Given her symptoms and elevated D-dimer she underwent CT pulmonary angiogram revealing no pulmonary embolism but did reveal dilated pulmonary artery trunk suggesting pulmonary artery hypertension as well as diffuse scattered bilateral groundglass consolidative opacities with tree-in-bud appearance and hepatic steatosis incidentally Labs with WBC 12.7, Hb 11.3, platelets 200, NA 139, K3.9, BUN 31, CR 1.4, glucose 139, albumin 2.9 otherwise LFTs within normal laboratory limits, high- sensitivity troponin is 30, NT proBNP is 847, urinalysis with moderate leuk esterase, rapid influenza negative, rapid COVID-19 negative, D-dimer 1.35 12/16: Blood cultures resulted +2 bottles with gram-positive cocci. Discussed with pulmonology bronchiectatic changes and chronic methotrexate are concerning for possible MAC. We will continue on cefepime but ultimately patient will likely need a bronchoscopy. Glucose fasting has been in the 150s not on steroid treatment will check A1c and place on insulin as needed. Also she is back in atrial fibrillation. Will have consultation with cardiology Vitals/I&O Vitals/I&O: Vital Signs Date Time Temp Pulse Resp B/P (MAP) Pulse Ox O2 Delivery O2 Flow Rate FiO2 12/16/21 08:15 Nasal Cannula 2.0 12/16/21 07:00 99.1 84 16 115/54 (74) 89 99.1 I & O 12/15/21 12/15/21 12/16/21 15:00 23:00 07:00 Intake Total 600 ml 500 ml 240 ml Output Total 900 ml 200 ml 600 ml Balance -300 ml 300 ml -360 ml Physical Exam General: Alert, Oriented X3, Cooperative, moderate distress Abdomen: Normal bowel sounds, Soft, No tenderness, No hepatosplenomegaly, No masses Extremities: No clubbing, No cyanosis, Normal pulses, No tenderness/swelling, Other (Right>Left swelling) Skin: No rashes, No breakdown, No significant lesion Labs Labs: Laboratory Tests Test 12/16/21 05:20 White Blood Count 8.5 x10^3/uL (4.0-11.0) Red Blood Count 4.54 x10^6/uL (3.50-5.40) Hemoglobin 11.6 g/dL (12.0-15.5) Hematocrit 36.7 % (36.0-47.0) Mean Corpuscular Volume 81 fL (79-100) Mean Corpuscular Hemoglobin 26 pg (25-35) Mean Corpuscular Hemoglobin Concent 32 g/dL (31-37) Red Cell Distribution Width 20.3 % (11.5-14.5) Platelet Count 196 x10^3/uL (140-400) Neutrophils (%) (Auto) 82 % (31-73) Lymphocytes (%) (Auto) 8 % (24-48) Monocytes (%) (Auto) 8 % (0-9) Eosinophils (%) (Auto) 2 % (0-3) Basophils (%) (Auto) 0 % (0-3) Neutrophils # (Auto) 7.0 x10^3/uL (1.8-7.7) Lymphocytes # (Auto) 0.7 x10^3/uL (1.0-4.8) Monocytes # (Auto) 0.7 x10^3/uL (0.0-1.1) Eosinophils # (Auto) 0.1 x10^3/uL (0.0-0.7) Basophils # (Auto) 0.0 x10^3/uL (0.0-0.2) Sodium Level 144 mmol/L (136-145) Potassium Level 4.0 mmol/L (3.5-5.1) Chloride Level 104 mmol/L (98-107) Carbon Dioxide Level 34 mmol/L (21-32) Anion Gap 6 (6-14) Blood Urea Nitrogen 12 mg/dL (7-20) Creatinine 0.9 mg/dL (0.6-1.0) Estimated GFR (Cockcroft-Gault) 60.4 Glucose Level 151 mg/dL (70-99) Calcium Level 9.5 mg/dL (8.5-10.1) Assessment and Plan Assessmemt and Plan Problems Medical Problems: (1) Healthcare-associated pneumonia Status: Acute (2) Paroxysmal atrial fibrillation Status: Acute (3) Respiratory failure with hypoxia Status: Acute Comment Review of Relevant I have reviewed the following items kierra (where applicable) has been applied. Medications: Current Medications Medications (Trade) Dose Ordered Sig/Juany Route PRN Reason Start Time Stop Time Status Last Admin Dose Admin Calcium Carbonate/ Glycine (Oscal) 500 mg TID PO 12/15/21 14:00 12/16/21 08:19 Vitamin D (Vitamin D3) 5,000 unit DAILY PO 12/16/21 09:00 12/16/21 08:17 Pantoprazole Sodium (Protonix) 40 mg DAILYAC PO 12/16/21 07:30 12/16/21 08:19 Pregabalin (Lyrica) 150 mg TID PO 12/15/21 14:00 12/16/21 08:18 Cefepime HCl (Maxipime) 2 gm Q24H IVP 12/15/21 21:00 12/15/21 20:01 Justifications for Admission Other Justification NEELA AYALA MD Dec 16, 2021 10:12
[2021-12-16 10:58] VITALS: BP 133/60
--- NOTE | 2021-12-16 11:14 | CONS ---
DATE OF CONSULTATION: 12/16/2021 PULMONARY CONSULTATION ATTENDING PHYSICIAN: Nestor Francis MD REASON FOR CONSULTATION: Pneumonia, dyspnea, abnormal CT chest. HISTORY OF PRESENT ILLNESS: The patient is a 81-year-old female with a BMI of 35. The patient has been followed up by my partner, Dr. Karimi in the office for lung nodules in the left lower lobe and right upper lobe, which had remained stable previously and continued observation was recommended. She was brought into the hospital with complaint of cough with yellow sputum production. She had some mild dyspnea as well. She is currently requiring 2 liters of oxygen. She is not on home oxygen. The patient is appropriately vaccinated for COVID. She also has received booster as well. She was noted to have some wheezing as well. The patient has history of rheumatoid arthritis. She has been on methotrexate. I reviewed the patient's CT of the chest and it shows progression of bilateral reticular nodular interstitial infiltrates with some patchy consolidation in the lower lobes. There is also increasing bronchiectasis, especially in the upper lobes. I have reviewed the patient's previous CT chest from 10/25/2021 and also from 04/05/2021. The patient has no history of deep vein thrombosis or pulmonary embolism. Consultation requested for further evaluation and management. Denies any nausea, vomiting. No diarrhea, no dysuria. No focal weakness. PAST MEDICAL HISTORY: Significant for history of paroxysmal atrial fibrillation, history of a lung nodule, which has been followed in the office by my partner, Dr. Karimi which has been stable previously. History of mild bronchiectasis. History of rheumatoid arthritis, on methotrexate. PAST SURGICAL HISTORY: No recent surgeries. ALLERGIES: None. MEDICATIONS: Reviewed as listed in the MRAD including methotrexate. She is also on cefepime and DuoNebs. REVIEW OF SYSTEMS: Twelve-point review of system obtained. Pertinent positives discussed in my present illness, otherwise noncontributory. All systems that were negative were reviewed as well. FAMILY HISTORY: Noncontributory to lungs. SOCIAL HISTORY: Denies any significant tobaccoism. Quit 60 years ago. PHYSICAL EXAMINATION: VITAL SIGNS: Reviewed. T-max of 99.1. Blood pressure stable, pulse ox is 89% on 2 liters. NECK: Supple. LUNGS: With faint wheezing. CARDIOVASCULAR: With a regular rate. ABDOMEN: Soft, nontender, obese. EXTREMITIES: With trace pitting edema. LABORATORY DATA: Reviewed. Her white cell count was 12.7, now down to 8.5. Hemoglobin is 11.6, platelets of 196. Her COVID and influenza screen is negative. Sodium 144. BUN and creatinine normal. IMPRESSION: 1. Acute hypoxic respiratory failure with progression of reticular nodular interstitial infiltrates along with increasing bronchiectasis. This is a patient who is immunocompromised. She is on methotrexate for rheumatoid arthritis. She is at risk for opportunistic and gram-negative infection such as Pseudomonas. Her CT chest presentation is also highly suspicious for Mycobacterium avium complex infection. She has reticular nodular interstitial infiltrates along with bronchiectasis. There has been progression since previous two CAT scans. 2. Acute kidney injury, resolved. 3. No significant tobaccoism. 4. Updated on COVID-19 vaccination. 5. Mild bronchospasm, likely secondary to infectious etiology. She does not have any significant tobaccoism. RECOMMENDATIONS: 1. Discussed with the patient. At this time, I would recommend continuing with cefepime to cover for gram-negative infection. 2. We will follow chest x-ray or even a CT chest. If there is no improvement, then we will consider doing bronchoscopy to rule out Mycobacterium avium infection. 3. Continue heparin for DVT prophylaxis. 4. DuoNebs. 5. Add Pulmicort. 6. If bronchospasm does not resolve, then consider holding metoprolol. 7. We will follow along with you. GIULIA TRUJILLO: Ene TID: [id number] MTDD
[2021-12-16] MEDS ORDERED: DEXTROSE 50% 25 GM / 50ML DISP.SYRIN. IV PRN (11:30)
[2021-12-16] MEDS ORDERED: IV DEXTROSE 5% 250 ML BAG. IV PRN (11:30)
[2021-12-16] MEDS: INSULIN LISPRO 300 UNITS/3 ML VIAL. SQ SCH ×2 (12:15→17:00)
--- NOTE | 2021-12-16 12:29 | PDOC2 ---
DOMONIQUE VICENTE MUSICAL THERAPIST 12/16/21 1229: CARDIAC CONSULT DATE OF CONSULT Date of Consult DATE: 12/16/21 TIME: 12:24 REASON FOR CONSULT Reason for Consult: AFIB REFERRING PHYSICIAN Referring Physician: Dr. Francis SOURCE Source: Chart review, Patient HISTORY OF PRESENT ILLNESS HISTORY OF PRESENT ILLNESS This is a 81 yo female who presented secondary to shortness of breath and cough. Was noted in AFIB with RVR, which prompted this consult. Was given 1 dose of IV Cardizem and covered back to SR. No prior h/o CAD. Denies any chest pain, palpitations, dizziness, diaphoresis, or nausea/vomiting. Reports SOA to be i mproved. PAST MEDICAL HISTORY Cardiovascular: HTN, Hyperlipidemia GI: GERD Rheumatologic: Rheumatoid arthritis Endocrine: Diabetes, Hypothyroidism PAST SURGICAL HISTORY Past Surgical History: Appendectomy, Cholecystectomy, Hysterectomy FAMILY HISTORY Family History: Hypertension SOCIAL HISTORY Smoke: Quit ALCOHOL: none Drugs: None Lives: Alone CURRENT MEDICATIONS CURRENT MEDICATIONS Current Medications Medications (Trade) Dose Ordered Sig/Juany Route PRN Reason Start Time Stop Time Status Last Admin Dose Admin Calcium Carbonate/ Glycine (Oscal) 500 mg TID PO 12/15/21 14:00 12/16/21 08:19 Vitamin D (Vitamin D3) 5,000 unit DAILY PO 12/16/21 09:00 12/16/21 08:17 Pantoprazole Sodium (Protonix) 40 mg DAILYAC PO 12/16/21 07:30 12/16/21 08:19 Pregabalin (Lyrica) 150 mg TID PO 12/15/21 14:00 12/16/21 08:18 Cefepime HCl (Maxipime) 2 gm Q24H IVP 12/15/21 21:00 12/15/21 20:01 Diltiazem HCl (Cardizem Iv Push) 10 mg 1X ONCE IVP 12/16/21 11:00 12/16/21 11:01 DC 12/16/21 10:56 ALLERGIES ALLERGIES: Coded Allergies: No Known Drug Allergies (Unverified , 07/30/21) ROS Review of System 14 point ROS conducted with pertinent positives noted above in HPI PHYSICAL EXAM General: Alert, Oriented X3, Cooperative, No acute distress HEENT: Atraumatic, Mucous membr. moist/pink Lungs: Other (diminished bases) Heart: Regular rate Abdomen: Soft, No tenderness Extremities: No edema, Normal pulses Skin: No significant lesion Neuro: Normal speech, Normal tone Psych/Mental Status: Mental status NL, Mood NL MUSCULOSKELETAL: Osteoarthritic changes both hands VITALS/I&O VITALS/I&O: Vital Signs Date Time Temp Pulse Resp B/P (MAP) Pulse Ox O2 Delivery O2 Flow Rate FiO2 12/16/21 10:58 97.8 131 16 133/60 (84) 90 Nasal Cannula 3.0 97.8 I & O 12/15/21 12/15/21 12/16/21 15:00 23:00 07:00 Intake Total 600 ml 500 ml 240 ml Output Total 900 ml 200 ml 600 ml Balance -300 ml 300 ml -360 ml LABS Lab: Laboratory Tests Test 12/16/21 05:20 12/16/21 12:11 White Blood Count 8.5 x10^3/uL (4.0-11.0) Red Blood Count 4.54 x10^6/uL (3.50-5.40) Hemoglobin 11.6 g/dL (12.0-15.5) L Hematocrit 36.7 % (36.0-47.0) Mean Corpuscular Volume 81 fL (79-100) Mean Corpuscular Hemoglobin 26 pg (25-35) Mean Corpuscular Hemoglobin Concent 32 g/dL (31-37) Red Cell Distribution Width 20.3 % (11.5-14.5) H Platelet Count 196 x10^3/uL (140-400) Neutrophils (%) (Auto) 82 % (31-73) H Lymphocytes (%) (Auto) 8 % (24-48) L Monocytes (%) (Auto) 8 % (0-9) Eosinophils (%) (Auto) 2 % (0-3) Basophils (%) (Auto) 0 % (0-3) Neutrophils # (Auto) 7.0 x10^3/uL (1.8-7.7) Lymphocytes # (Auto) 0.7 x10^3/uL (1.0-4.8) L Monocytes # (Auto) 0.7 x10^3/uL (0.0-1.1) Eosinophils # (Auto) 0.1 x10^3/uL (0.0-0.7) Basophils # (Auto) 0.0 x10^3/uL (0.0-0.2) Sodium Level 144 mmol/L (136-145) Potassium Level 4.0 mmol/L (3.5-5.1) Chloride Level 104 mmol/L (98-107) Carbon Dioxide Level 34 mmol/L (21-32) H Anion Gap 6 (6-14) Blood Urea Nitrogen 12 mg/dL (7-20) Creatinine 0.9 mg/dL (0.6-1.0) Estimated GFR (Cockcroft-Gault) 60.4 Glucose Level 151 mg/dL (70-99) H Calcium Level 9.5 mg/dL (8.5-10.1) Glucose (Fingerstick) 129 mg/dL (70-99) H Laboratory Tests 12/16/21 05:20 Laboratory Tests 12/16/21 05:20 ASSESSMENT/PLAN ASSESSMENT/PLAN 1. Acute respiratory failure secondary to PNA 2. New onset AFIB with RVR; converted back to SR s/p IV Cardizem bolus 3. Hypertension; controlled 4. Hyperlipidemia 5. Diabetes, II 6. Hypothyroidism 7. RA 8. KENNEY; improved Recommendations Start oral Cardizem for rate control as BP allows AFIB very brief and converted back to SR Will start ASA therapy Echo to assess LV systolic function TSH, lipids Outpatient event monitor to guide therapy Consider outpatient ischemic evaluation WM HALL MD 12/17/21 1700: CARDIAC CONSULT ASSESSMENT/PLAN ASSESSMENT/PLAN Patient seen and examined on 12/16/2021. I agree with our nurse practitioners assessment and plan. Acute respiratory failure secondary to PNA. Continuing present treatment. New onset AFIB with RVR; converted back to SR s/p IV Cardizem bolus. Starting aspirin. We will check an echocardiogram. Hypertension; controlled Hyperlipidemia. Update on lab. Diabetes, II Hypothyroidism KENNEY; improved. Continuing to monitor lab. DOMONIQUE VICENTE APRN Dec 16, 2021 12:29 WM HALL MD Dec 17, 2021 17:00
[2021-12-16 15:00] VITALS: BP 107/74
--- NOTE | 2021-12-16 15:53 | NUR ---
SS following for discharge planning. SS reviewed pt chart and discussed with pt RN. Pt is from [facility], ; fax [phone]. COVID19 negative. Cardiology and Pulmonology following. Pt on IV Cefepime. Pt has had [facility], ; fax [phone], in the past. SS will continue to follow for discharge planning.
[2021-12-16] MEDS ORDERED: ASPIRIN ENTERIC COATED 81 MG TABLET.DR. PO SCH (17:00)
[2021-12-16 19:40] VITALS: BP 104/57
[2021-12-16 22:17] VITALS: BP 103/55
[2021-12-16] MEDS: CEFEPIME HCL IV Push 2 GM VIAL. IVP SCH (22:19)
[2021-12-16] MEDS: PSYLLIUM HUSK (SUGAR FREE) 1 PKT PACKET PO SCH (22:20)
[2021-12-17 02:31] VITALS: BP 116/55
[2021-12-17 05:14] LABS: HEMOGLOBIN A1C 8.1 % (4.8-5.6)
[2021-12-17 05:55] LABS: BASO % 0 % (0-3); EOS # 0.1 x10^3/uL (0.0-0.7); EOS % 1 % (0-3); HEMATOCRIT 38.3 % (36.0-47.0); HEMOGLOBIN 11.7 g/dL (12.0-15.5); LYMPH # 0.9 x10^3/uL (1.0-4.8); LYMPH % 12 % (24-48); MEAN CORPUSCULAR HEMOGLOBIN 25 pg (25-35); MEAN CORPUSCULAR HGB CONC 31 g/dL (31-37); MEAN CORPUSCULAR VOLUME 82 fL (79-100); MONO # 0.7 x10^3/uL (0.0-1.1); MONO % 9 % (0-9); NEUT % 77 % (31-73); PLATELET COUNT 179 x10^3/uL (140-400); RED BLOOD COUNT 4.67 x10^6/uL (3.50-5.40); WHITE BLOOD COUNT 7.8 x10^3/uL (4.0-11.0)
[2021-12-17] MEDS: HEPARIN for SUB-Q USE 5,000 UNIT/ML VIAL. SQ SCH (06:00)
[2021-12-17 06:09] LABS: CALCIUM 9.3 mg/dL (8.5-10.1); CREATININE 0.9 mg/dL (0.6-1.0); GFR 60.4; POTASSIUM 4.4 mmol/L (3.5-5.1)
[2021-12-17 07:00] VITALS: BP 102/57
[2021-12-17] MEDS ORDERED: DIGOXIN IV 500 MCG/2 ML AMPUL. IV ONE (07:00)
[2021-12-17] MEDS: METOPROLOL IV PUSH 5 MG/5 ML VIAL. IVP PRN (07:21)
[2021-12-17] MEDS: PANTOPRAZOLE 40 MG TABLET.DR. PO SCH (07:30)
[2021-12-17] MEDS: BUDESONIDE 0.5 MG/2 ML NEBU. NEB SCH ×3 (07:43→20:07)
[2021-12-17] MEDS: IPRATRPIUM/ALBUTEROL 0.5/2.5MG 3 ML NEBU. NEB SCH ×4 (07:43→20:07)
[2021-12-17] MEDS: INSULIN LISPRO 300 UNITS/3 ML VIAL. SQ SCH ×3 (08:00→17:00)
[2021-12-17] MEDS ORDERED: PERFLUTREN PROTEIN-A MICROSPHR 0.22 MG/ML 3 ML VIAL. IV ONE (08:00)
--- NOTE | 2021-12-17 08:13 | NUR ---
PT WANTS TO GET ON THE COMMODE, ATTEMPTED BUT SHE IS TOO WEAK AND SHE STARTED GOING INTO AFIB RVR. 130'S TO 170'S REPORTED TO DR HALL OBTAINED ORDER FOR DIG. GAVE TO PT IV DIDNT WORK. PASSED PT TO DAY HUGO PHILLIPS RN
--- NOTE | 2021-12-17 08:18 | NUR ---
BP WITH THE HIGH HEART RATE WAS IN RIGHT ARM 77/54. AND LEFT ARM 91/61/. PT STATES SHE DOESNT FEEL HER HEART RACING. BUT STATES SHE FEELS REALLY BAD "LIKE I WONT MAKE IT THRU THE NIGHT." I TRIED TO REORINATE HER AND SHE SAID "TONIGHT". PAST ON TO DAY RN. BYERS
[2021-12-17] MEDS: PREGABALIN 75 MG CAPSULE PO SCH ×3 (08:59→20:35)
[2021-12-17] MEDS: CHOLECALCIFEROL (VITAMIN D3) 5,000 UNIT CAPSULE PO SCH (09:00)
[2021-12-17] MEDS: CALCIUM CARBONATE 500 MG TABLET PO SCH ×3 (09:00→20:35)
[2021-12-17 10:40] VITALS: BP 103/45
--- NOTE | 2021-12-17 10:42 | PDOC ---
PULMONARY PROGRESS NOTES DATE: 12/17/21 TIME: 10:41 Subjective Still has a cough. No increased shortness of breath. Vitals Vital Signs Date Time Temp Pulse Resp B/P (MAP) Pulse Ox O2 Delivery O2 Flow Rate FiO2 12/17/21 08:58 140 116/55 12/17/21 07:44 95 Nasal Cannula 2.0 12/17/21 07:00 98.1 18 98.1 General: Alert, No acute distress Lungs: Wheezing (Mild) Cardiovascular: S1 Abdomen: Soft Neuro Exam: Alert Extremities: No Edema Skin: Warm Labs Laboratory Tests Test 12/16/21 05:20 12/16/21 12:11 12/16/21 17:10 12/16/21 19:39 White Blood Count 8.5 x10^3/uL (4.0-11.0) Red Blood Count 4.54 x10^6/uL (3.50-5.40) Hemoglobin 11.6 g/dL (12.0-15.5) Hematocrit 36.7 % (36.0-47.0) Mean Corpuscular Volume 81 fL (79-100) Mean Corpuscular Hemoglobin 26 pg (25-35) Mean Corpuscular Hemoglobin Concent 32 g/dL (31-37) Red Cell Distribution Width 20.3 % (11.5-14.5) Platelet Count 196 x10^3/uL (140-400) Neutrophils (%) (Auto) 82 % (31-73) Lymphocytes (%) (Auto) 8 % (24-48) Monocytes (%) (Auto) 8 % (0-9) Eosinophils (%) (Auto) 2 % (0-3) Basophils (%) (Auto) 0 % (0-3) Neutrophils # (Auto) 7.0 x10^3/uL (1.8-7.7) Lymphocytes # (Auto) 0.7 x10^3/uL (1.0-4.8) Monocytes # (Auto) 0.7 x10^3/uL (0.0-1.1) Eosinophils # (Auto) 0.1 x10^3/uL (0.0-0.7) Basophils # (Auto) 0.0 x10^3/uL (0.0-0.2) Sodium Level 144 mmol/L (136-145) Potassium Level 4.0 mmol/L (3.5-5.1) Chloride Level 104 mmol/L (98-107) Carbon Dioxide Level 34 mmol/L (21-32) Anion Gap 6 (6-14) Blood Urea Nitrogen 12 mg/dL (7-20) Creatinine 0.9 mg/dL (0.6-1.0) Estimated GFR (Cockcroft-Gault) 60.4 Glucose Level 151 mg/dL (70-99) Hemoglobin A1c 8.1 % (4.8-5.6) Calcium Level 9.5 mg/dL (8.5-10.1) Glucose (Fingerstick) 129 mg/dL (70-99) 143 mg/dL (70-99) 175 mg/dL (70-99) Test 12/17/21 05:20 12/17/21 07:31 White Blood Count 7.8 x10^3/uL (4.0-11.0) Red Blood Count 4.67 x10^6/uL (3.50-5.40) Hemoglobin 11.7 g/dL (12.0-15.5) Hematocrit 38.3 % (36.0-47.0) Mean Corpuscular Volume 82 fL (79-100) Mean Corpuscular Hemoglobin 25 pg (25-35) Mean Corpuscular Hemoglobin Concent 31 g/dL (31-37) Red Cell Distribution Width 20.0 % (11.5-14.5) Platelet Count 179 x10^3/uL (140-400) Neutrophils (%) (Auto) 77 % (31-73) Lymphocytes (%) (Auto) 12 % (24-48) Monocytes (%) (Auto) 9 % (0-9) Eosinophils (%) (Auto) 1 % (0-3) Basophils (%) (Auto) 0 % (0-3) Neutrophils # (Auto) 6.0 x10^3/uL (1.8-7.7) Lymphocytes # (Auto) 0.9 x10^3/uL (1.0-4.8) Monocytes # (Auto) 0.7 x10^3/uL (0.0-1.1) Eosinophils # (Auto) 0.1 x10^3/uL (0.0-0.7) Basophils # (Auto) 0.0 x10^3/uL (0.0-0.2) Sodium Level 145 mmol/L (136-145) Potassium Level 4.4 mmol/L (3.5-5.1) Chloride Level 103 mmol/L (98-107) Carbon Dioxide Level 37 mmol/L (21-32) Anion Gap 5 (6-14) Blood Urea Nitrogen 11 mg/dL (7-20) Creatinine 0.9 mg/dL (0.6-1.0) Estimated GFR (Cockcroft-Gault) 60.4 Glucose Level 145 mg/dL (70-99) Calcium Level 9.3 mg/dL (8.5-10.1) Triglycerides Level 124 mg/dL (0-150) Cholesterol Level 110 mg/dL (0-200) LDL Cholesterol, Calculated 48 mg/dL (0-100) VLDL Cholesterol, Calculated 25 mg/dL (0-40) Non-HDL Cholesterol Calculated 73 mg/dL (0-129) HDL Cholesterol 37 mg/dL (40-60) Cholesterol/HDL Ratio 3.0 Glucose (Fingerstick) 137 mg/dL (70-99) Laboratory Tests Test 12/16/21 12:11 12/16/21 17:10 12/16/21 19:39 12/17/21 05:20 Glucose (Fingerstick) 129 mg/dL (70-99) 143 mg/dL (70-99) 175 mg/dL (70-99) White Blood Count 7.8 x10^3/uL (4.0-11.0) Red Blood Count 4.67 x10^6/uL (3.50-5.40) Hemoglobin 11.7 g/dL (12.0-15.5) Hematocrit 38.3 % (36.0-47.0) Mean Corpuscular Volume 82 fL (79-100) Mean Corpuscular Hemoglobin 25 pg (25-35) Mean Corpuscular Hemoglobin Concent 31 g/dL (31-37) Red Cell Distribution Width 20.0 % (11.5-14.5) Platelet Count 179 x10^3/uL (140-400) Neutrophils (%) (Auto) 77 % (31-73) Lymphocytes (%) (Auto) 12 % (24-48) Monocytes (%) (Auto) 9 % (0-9) Eosinophils (%) (Auto) 1 % (0-3) Basophils (%) (Auto) 0 % (0-3) Neutrophils # (Auto) 6.0 x10^3/uL (1.8-7.7) Lymphocytes # (Auto) 0.9 x10^3/uL (1.0-4.8) Monocytes # (Auto) 0.7 x10^3/uL (0.0-1.1) Eosinophils # (Auto) 0.1 x10^3/uL (0.0-0.7) Basophils # (Auto) 0.0 x10^3/uL (0.0-0.2) Sodium Level 145 mmol/L (136-145) Potassium Level 4.4 mmol/L (3.5-5.1) Chloride Level 103 mmol/L (98-107) Carbon Dioxide Level 37 mmol/L (21-32) Anion Gap 5 (6-14) Blood Urea Nitrogen 11 mg/dL (7-20) Creatinine 0.9 mg/dL (0.6-1.0) Estimated GFR (Cockcroft-Gault) 60.4 Glucose Level 145 mg/dL (70-99) Calcium Level 9.3 mg/dL (8.5-10.1) Triglycerides Level 124 mg/dL (0-150) Cholesterol Level 110 mg/dL (0-200) LDL Cholesterol, Calculated 48 mg/dL (0-100) VLDL Cholesterol, Calculated 25 mg/dL (0-40) Non-HDL Cholesterol Calculated 73 mg/dL (0-129) HDL Cholesterol 37 mg/dL (40-60) Cholesterol/HDL Ratio 3.0 Test 12/17/21 07:31 Glucose (Fingerstick) 137 mg/dL (70-99) Medications Active Scripts Medications Dose Route/Sig Max Daily Dose Days Date Category Dose Instructions Ocuvite Lutein 25-5 mg Softgel (Lutein/Zeaxanthin) 1 Each Capsule 1 Cap PO DAILY 30 12/15/21 Reported Acidophilus (Lactobacillus Acidophilus) 1 Each Tab.chew 1 Each PO DAILY 12/15/21 Reported Hydrocodone-Acetamin 5-325 mg (Hydrocodone/Acetaminophen) 1 Each Tablet 1 Each PO Q6HRS PRN 7 07/31/21 Rx [Creon] 07/30/21 Reported Tylenol Extra Strength (Acetaminophen) 500 Mg Tablet 500 Mg PO BID 07/30/21 Reported Calcium (Calcium Carbonate) 500 Mg Tablet 500 Mg PO TID 07/30/21 Reported Protonix (Pantoprazole Sodium) 20 Mg Tablet.dr 20 Mg PO DAILY 07/30/21 Reported Folic Acid 0.4 Mg Tablet 0.4 Mg PO DAILY 07/30/21 Reported Vitamin D3 (Vitamin D) 125 Mcg Capsule 125 Mcg PO DAILY 07/30/21 Reported 5,000 UNITS = 125 MCG Methotrexate (Methotrexate Sodium) 2.5 Mg Tablet 6 Tab PO WEEKLY 07/30/21 Reported Ocuvite Tablet (Vit A,C & E/Lutein/Minerals) 1 Each Tablet 1 Tab PO DAILY 30 07/30/21 Reported Probiotic (Lactobacillus Combo No.10) 1 Each Capsule 1 Tab PO DAILY 30 07/30/21 Reported Lyrica (Pregabalin) 150 Mg Capsule 150 Mg PO TID 07/30/21 Reported Impression . 1. Acute hypoxic respiratory failure with progression of reticular nodular interstitial infiltrates along with increasing bronchiectasis. This is a patient who is immunocompromised. She is on methotrexate for rheumatoid arthritis. She is at risk for opportunistic and gram-negative infection such as Pseudomonas. Her CT chest presentation is also highly suspicious for Mycobacterium avium complex infection. She has reticular nodular interstitial infiltrates along with bronchiectasis. There has been progression since previous two CAT scans. 2. Acute kidney injury, resolved. 3. No significant tobaccoism. 4. Updated on COVID-19 vaccination. 5. Mild bronchospasm, likely secondary to infectious etiology. She does not have any significant tobaccoism. Plan . RECOMMENDATIONS: 1. Discussed with the patient. At this time, I would recommend continuing with cefepime to cover for gram-negative infection. 2. We will follow chest x-ray or even a CT chest. If there is no improvement, then we will consider doing bronchoscopy to rule out Mycobacterium avium infection. Can be done as an outpatient. 3. Continue heparin for DVT prophylaxis. 4. DuoNebs. 5. Pulmicort. 6. If bronchospasm does not resolve, then consider holding metoprolol. 7. We will follow along with you. BEATRICE MERRITT MD Dec 17, 2021 10:42
--- NOTE | 2021-12-17 11:42 | PDOC ---
DOMONIQUE VICENTE INSURANCE ANALYST 12/17/21 1142: CARDIO Progress Notes Date and Time Date of Service 12/17/21 Time of Evaluation 1140 Subjective Subjective: No Chest Pain, No Palpitations, Other (breathing improved ) Vitals Vitals Vital Signs Date Time Temp Pulse Resp B/P (MAP) Pulse Ox O2 Delivery O2 Flow Rate FiO2 12/17/21 10:40 97.9 83 18 103/45 (64) Nasal Cannula 2.0 97.9 12/17/21 07:44 95 Weight Weight [ ] Input and Output Intake and Output Intake and Output 12/17/21 07:00 Intake Total 678 ml Output Total 225 ml Balance 453 ml Intake Oral 678 ml Output Urine Total 225 ml # Voids 1 # Bowel Movements 1 Laboratory Labs Laboratory Tests Test 12/16/21 12:11 12/16/21 17:10 12/16/21 19:39 12/17/21 05:20 Glucose (Fingerstick) 129 mg/dL (70-99) 143 mg/dL (70-99) 175 mg/dL (70-99) White Blood Count 7.8 x10^3/uL (4.0-11.0) Red Blood Count 4.67 x10^6/uL (3.50-5.40) Hemoglobin 11.7 g/dL (12.0-15.5) Hematocrit 38.3 % (36.0-47.0) Mean Corpuscular Volume 82 fL (79-100) Mean Corpuscular Hemoglobin 25 pg (25-35) Mean Corpuscular Hemoglobin Concent 31 g/dL (31-37) Red Cell Distribution Width 20.0 % (11.5-14.5) Platelet Count 179 x10^3/uL (140-400) Neutrophils (%) (Auto) 77 % (31-73) Lymphocytes (%) (Auto) 12 % (24-48) Monocytes (%) (Auto) 9 % (0-9) Eosinophils (%) (Auto) 1 % (0-3) Basophils (%) (Auto) 0 % (0-3) Neutrophils # (Auto) 6.0 x10^3/uL (1.8-7.7) Lymphocytes # (Auto) 0.9 x10^3/uL (1.0-4.8) Monocytes # (Auto) 0.7 x10^3/uL (0.0-1.1) Eosinophils # (Auto) 0.1 x10^3/uL (0.0-0.7) Basophils # (Auto) 0.0 x10^3/uL (0.0-0.2) Sodium Level 145 mmol/L (136-145) Potassium Level 4.4 mmol/L (3.5-5.1) Chloride Level 103 mmol/L (98-107) Carbon Dioxide Level 37 mmol/L (21-32) Anion Gap 5 (6-14) Blood Urea Nitrogen 11 mg/dL (7-20) Creatinine 0.9 mg/dL (0.6-1.0) Estimated GFR (Cockcroft-Gault) 60.4 Glucose Level 145 mg/dL (70-99) Calcium Level 9.3 mg/dL (8.5-10.1) Triglycerides Level 124 mg/dL (0-150) Cholesterol Level 110 mg/dL (0-200) LDL Cholesterol, Calculated 48 mg/dL (0-100) VLDL Cholesterol, Calculated 25 mg/dL (0-40) Non-HDL Cholesterol Calculated 73 mg/dL (0-129) HDL Cholesterol 37 mg/dL (40-60) Cholesterol/HDL Ratio 3.0 Test 12/17/21 07:31 Glucose (Fingerstick) 137 mg/dL (70-99) Microbiology Micro Microbiology 12/14/21 Urine Culture - Final, Complete 12/14/21 Blood Culture - Preliminary, Resulted NO GROWTH AFTER 2 DAYS Physical Exam HEENT: Neck Supple W Full Motion Chest: Symmetric LUNGS: Clear to Auscultation Heart: S1S2, RRR Abdomen: Soft N/T Extremities: No Edema Neurology: alert, oriented, follow commands Assessment Assessment 1. Acute respiratory failure secondary to PNA 2. New onset AFIB with RVR; initially converted back to SR s/p IV Cardizem. Went back into AFIB this morning. Is presently SR 3. Hypertension; controlled 4. Hyperlipidemia 5. Diabetes, II 6. Hypothyroidism 7. RA 8. KENNEY; improved 9. Bacteremia; BC with 2/4 bottles GPC Recommendations Cardizem for rate control Consider initiating amiodarone for rhythm maintenance. Will d/w primary product support consultant. Echo today Given recurrence of AFIB, will start Eliquis for stroke prophylaxis Consider outpatient ischemic evaluation Supportive care Justicifation of Admission Dx: Justifications for Admission: Justification of Admission Dx: N/A WM HALL MD 12/17/21 1714: CARDIO Progress Notes Assessment Assessment Patient seen and examined She is feeling mildly better today. I agree with our nurse practitioners assessment and plan. 1. Acute respiratory failure secondary to PNA. Mildly improved. We will continue present treatment. Echo pending. 2. New onset AFIB with RVR; initially converted back to SR s/p IV Cardizem. Went back into AFIB this morning. Is presently SR. We will start amiodarone and Eliquis. Outpatient monitor. 3. Hypertension; controlled 4. Hyperlipidemia 5. Diabetes, II 6. Hypothyroidism 7. RA 8. KENNEY; improved 9. Bacteremia; BC with 2/4 bottles GPC DOMONIQUE VICENTE APRN Dec 17, 2021 11:42 WM HALL MD Dec 17, 2021 17:14
--- NOTE | 2021-12-17 13:04 | PDOC ---
[employer] PROGRESS NOTE Date of Service DOS: DATE: 12/17/21 TIME: 13:01 Chief Complaint Chief Complaint Acute respiratory failure with hypoxia - due to bronchiectasis/HCAP. Will wean O2 as tolerated. Consult pulmonology who she sees outpatient. Possible rheumatoid lung vs MAC? Gram positive blood cultures - will cont cefepime, f/u results. Abnormal CXR - this is Healthcare-associated pneumonia given assisted living facility setting. Given bronciectasis will treat for pseudomonas, gram negative. 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 Will have pulm assess for possible lung tox given abnormal CT DM2 - A1c 8.1, will initiate jardiance given cardiac arrhythmia and diastolic CHF and tradjenta for oral hypoglycemic agents FEN - Cardiac diet PPX - lovenox FULL CODE DIspo - inpatient History of Present Illness History of Present Illness Ms Weber is a 81 year old female w/ PMHx HTN, GERD, Rheumatoid arthritis, DM2 with neuropathy who presents with report of greater than 2-week history of cough with purulent sputum, shortness of breath. She denies nausea, vomiting, diarrhea. She denies abdominal pain. He does report some chest pressure intermittently for the past 2 weeks as well. She has attributed the chest pressure to coughing. She denies hemoptysis. She is currently residing in an assisted living facility, and she reports that multiple staff members and other patients living that have had similar symptoms. She has been fully vaccinated against COVID-19, including booster, she has had an influenza vaccine as well. She has not recently been hospitalized, denies recent travel, denies recent surgery. She does have a chronically swollen right lower extremity, which is unchanged. She has chronic lower extremity and foot pain secondary to diabetic neuropathy. She is hypoxic on room air, she does not normally require supplemental oxygen. She quit smoking many decades ago. She has no known history of COPD or pulmonary disease. She did have outpatient eval by pulm and CT chest outpatient, she doesn't remember the outcome EKG #1: 1903. Sinus, Rate is 91 bpm, left axis, no ST elevation or TWI EKG #2: 2329. Atrial fibrillation with RVR, Rate is 132 bpm, left axis, no ST elevation or TWI Chest radiograph with bibasilar airspace disease. Given her symptoms and elevated D-dimer she underwent CT pulmonary angiogram revealing no pulmonary embolism but did reveal dilated pulmonary artery trunk suggesting pulmonary artery hypertension as well as diffuse scattered bilateral groundglass consolidative opacities with tree-in-bud appearance and hepatic steatosis incidentally Labs with WBC 12.7, Hb 11.3, platelets 200, NA 139, K3.9, BUN 31, CR 1.4, glucose 139, albumin 2.9 otherwise LFTs within normal laboratory limits, high- sensitivity troponin is 30, NT proBNP is 847, urinalysis with moderate leuk esterase, rapid influenza negative, rapid COVID-19 negative, D-dimer 1.35 12/16: Blood cultures resulted +2 bottles with gram-positive cocci. Discussed with pulmonology bronchiectatic changes and chronic methotrexate are concerning for possible MAC. We will continue on cefepime but ultimately patient will likely need a bronchoscopy. Glucose fasting has been in the 150s not on steroid treatment will check A1c and place on insulin as needed. Also she is back in atrial fibrillation. Will have consultation with cardiology 12/17: Blood cultures with staph hominis. Still with significant bronchospasm. She symptomatically feels very weak but is willing to try to get out of bed today. Atrial fibrillation relatively rate controlled, may need to change to Cardizem if bronchospasm continues Vitals/I&O Vitals/I&O: Vital Signs Date Time Temp Pulse Resp B/P (MAP) Pulse Ox O2 Delivery O2 Flow Rate FiO2 12/17/21 11:50 93 Nasal Cannula 2.0 12/17/21 10:40 97.9 83 18 103/45 (64) 97.9 I & O 12/16/21 12/16/21 12/17/21 15:00 23:00 07:00 Intake Total 298 ml 180 ml 200 ml Output Total 225 ml Balance 298 ml 180 ml -25 ml Physical Exam General: Alert, Oriented X3, Cooperative, No acute distress Heart: Regular rate Lungs: Wheezing (Mild) Abdomen: Soft, No tenderness Extremities: No edema, Normal pulses Skin: No significant lesion Labs Labs: Laboratory Tests Test 12/16/21 17:10 12/16/21 19:39 12/17/21 05:20 12/17/21 07:31 Glucose (Fingerstick) 143 mg/dL (70-99) 175 mg/dL (70-99) 137 mg/dL (70-99) White Blood Count 7.8 x10^3/uL (4.0-11.0) Red Blood Count 4.67 x10^6/uL (3.50-5.40) Hemoglobin 11.7 g/dL (12.0-15.5) Hematocrit 38.3 % (36.0-47.0) Mean Corpuscular Volume 82 fL (79-100) Mean Corpuscular Hemoglobin 25 pg (25-35) Mean Corpuscular Hemoglobin Concent 31 g/dL (31-37) Red Cell Distribution Width 20.0 % (11.5-14.5) Platelet Count 179 x10^3/uL (140-400) Neutrophils (%) (Auto) 77 % (31-73) Lymphocytes (%) (Auto) 12 % (24-48) Monocytes (%) (Auto) 9 % (0-9) Eosinophils (%) (Auto) 1 % (0-3) Basophils (%) (Auto) 0 % (0-3) Neutrophils # (Auto) 6.0 x10^3/uL (1.8-7.7) Lymphocytes # (Auto) 0.9 x10^3/uL (1.0-4.8) Monocytes # (Auto) 0.7 x10^3/uL (0.0-1.1) Eosinophils # (Auto) 0.1 x10^3/uL (0.0-0.7) Basophils # (Auto) 0.0 x10^3/uL (0.0-0.2) Sodium Level 145 mmol/L (136-145) Potassium Level 4.4 mmol/L (3.5-5.1) Chloride Level 103 mmol/L (98-107) Carbon Dioxide Level 37 mmol/L (21-32) Anion Gap 5 (6-14) Blood Urea Nitrogen 11 mg/dL (7-20) Creatinine 0.9 mg/dL (0.6-1.0) Estimated GFR (Cockcroft-Gault) 60.4 Glucose Level 145 mg/dL (70-99) Calcium Level 9.3 mg/dL (8.5-10.1) Triglycerides Level 124 mg/dL (0-150) Cholesterol Level 110 mg/dL (0-200) LDL Cholesterol, Calculated 48 mg/dL (0-100) VLDL Cholesterol, Calculated 25 mg/dL (0-40) Non-HDL Cholesterol Calculated 73 mg/dL (0-129) HDL Cholesterol 37 mg/dL (40-60) Cholesterol/HDL Ratio 3.0 Test 12/17/21 11:40 Glucose (Fingerstick) 150 mg/dL (70-99) Assessment and Plan Assessmemt and Plan Problems Medical Problems: (1) Healthcare-associated pneumonia Status: Acute (2) Paroxysmal atrial fibrillation Status: Acute (3) Respiratory failure with hypoxia Status: Acute Comment Review of Relevant I have reviewed the following items kierra (where applicable) has been applied. Medications: Current Medications Medications (Trade) Dose Ordered Sig/Juany Route PRN Reason Start Time Stop Time Status Last Admin Dose Admin Diltiazem HCl (Cardizem 24hr Cd) 120 mg DAILY PO 12/16/21 17:00 12/17/21 08:58 Aspirin (Ecotrin) 81 mg DAILYWBKFT PO 12/16/21 17:00 12/16/21 17:11 Digoxin (Lanoxin) 250 mcg 1X ONCE IV 12/17/21 07:00 12/17/21 07:01 DC 12/17/21 07:18 Justifications for Admission Other Justification NEELA AYALA MD Dec 17, 2021 13:04
--- NOTE | 2021-12-17 13:34 | NUR ---
SS following up with discharge planning. SS reviewed pt chart and discussed with pt RN. Pt is currently requiring oxygen at two liters nasal canula. COVID19 negative. Pt on IV Cefepime. PT/OT ordered. Not medically ready. Pt is from [facility], ; fax [phone]. SS will continue to follow for discharge planning.
[2021-12-17 14:48] VITALS: BP 123/51
[2021-12-17] MEDS ORDERED: HEPARIN for SUB-Q USE 5,000 UNIT/ML VIAL. SQ SCH (15:00)
[2021-12-17] MEDS: EMPAGLIFLOZIN 25 MG TABLET. PO SCH (15:25)
[2021-12-17] MEDS: LINAGLIPTIN 5 MG TABLET PO SCH (15:26)
[2021-12-17] MEDS: AMIODARONE HCL 200 MG TABLET. PO SCH ×2 (15:26→22:43)
[2021-12-17] MEDS: traMADol 50 MG TABLET PO PRN (19:17)
[2021-12-17 19:20] VITALS: BP 148/64
[2021-12-17] MEDS: APIXABAN 5 MG TABLET. PO SCH (20:35)
[2021-12-17] MEDS: PSYLLIUM HUSK (SUGAR FREE) 1 PKT PACKET PO SCH (20:35)
[2021-12-17] MEDS: CEFEPIME HCL IV Push 2 GM VIAL. IVP SCH (20:44)
[2021-12-17 22:47] VITALS: BP 99/43
[2021-12-18 02:19] VITALS: BP 123/56
[2021-12-18] MEDS: PANTOPRAZOLE 40 MG TABLET.DR. PO SCH (06:13)
[2021-12-18 07:00] VITALS: BP 127/61
[2021-12-18] MEDS ORDERED: PERFLUTREN PROTEIN-A MICROSPHR 0.22 MG/ML 3 ML VIAL. IV ONE ×2 (07:45→13:44)
[2021-12-18] MEDS: INSULIN LISPRO 300 UNITS/3 ML VIAL. SQ SCH ×3 (07:59→17:00)
[2021-12-18] MEDS: BUDESONIDE 0.5 MG/2 ML NEBU. NEB SCH ×2 (08:35→15:33)
[2021-12-18] MEDS: IPRATRPIUM/ALBUTEROL 0.5/2.5MG 3 ML NEBU. NEB SCH ×4 (08:35→21:17)
[2021-12-18] MEDS: guaiFENesin DM 200MG/20MG 10 ML SYRUP PO PRN (09:25)
[2021-12-18] MEDS: ACETAMINOPHEN 325 MG TABLET. PO PRN ×2 (09:26→21:41)
[2021-12-18] MEDS: LINAGLIPTIN 5 MG TABLET PO SCH (09:26)
[2021-12-18] MEDS: CHOLECALCIFEROL (VITAMIN D3) 5,000 UNIT CAPSULE PO SCH (09:26)
[2021-12-18] MEDS: EMPAGLIFLOZIN 25 MG TABLET. PO SCH (09:27)
[2021-12-18] MEDS: CALCIUM CARBONATE 500 MG TABLET PO SCH ×3 (09:28→21:28)
[2021-12-18] MEDS: APIXABAN 5 MG TABLET. PO SCH ×2 (09:28→21:29)
[2021-12-18] MEDS: AMIODARONE HCL 200 MG TABLET. PO SCH ×2 (09:28→21:29)
--- NOTE | 2021-12-18 10:07 | PDOC ---
PULMONARY PROGRESS NOTES DATE: 12/18/21 TIME: 10:06 Subjective Still has a cough. No increased shortness of breath. Vitals Vital Signs Date Time Temp Pulse Resp B/P (MAP) Pulse Ox O2 Delivery O2 Flow Rate FiO2 12/18/21 09:28 81 127/61 12/18/21 08:35 88 Nasal Cannula 2.0 12/18/21 07:00 98.9 16 98.9 General: Alert, No acute distress Lungs: Wheezing (Resolved) Cardiovascular: S1 Abdomen: Soft Neuro Exam: Alert Extremities: No Edema Skin: Warm Labs Laboratory Tests Test 12/16/21 12:11 12/16/21 17:10 12/16/21 19:39 12/17/21 05:20 Glucose (Fingerstick) 129 mg/dL (70-99) 143 mg/dL (70-99) 175 mg/dL (70-99) White Blood Count 7.8 x10^3/uL (4.0-11.0) Red Blood Count 4.67 x10^6/uL (3.50-5.40) Hemoglobin 11.7 g/dL (12.0-15.5) Hematocrit 38.3 % (36.0-47.0) Mean Corpuscular Volume 82 fL (79-100) Mean Corpuscular Hemoglobin 25 pg (25-35) Mean Corpuscular Hemoglobin Concent 31 g/dL (31-37) Red Cell Distribution Width 20.0 % (11.5-14.5) Platelet Count 179 x10^3/uL (140-400) Neutrophils (%) (Auto) 77 % (31-73) Lymphocytes (%) (Auto) 12 % (24-48) Monocytes (%) (Auto) 9 % (0-9) Eosinophils (%) (Auto) 1 % (0-3) Basophils (%) (Auto) 0 % (0-3) Neutrophils # (Auto) 6.0 x10^3/uL (1.8-7.7) Lymphocytes # (Auto) 0.9 x10^3/uL (1.0-4.8) Monocytes # (Auto) 0.7 x10^3/uL (0.0-1.1) Eosinophils # (Auto) 0.1 x10^3/uL (0.0-0.7) Basophils # (Auto) 0.0 x10^3/uL (0.0-0.2) Sodium Level 145 mmol/L (136-145) Potassium Level 4.4 mmol/L (3.5-5.1) Chloride Level 103 mmol/L (98-107) Carbon Dioxide Level 37 mmol/L (21-32) Anion Gap 5 (6-14) Blood Urea Nitrogen 11 mg/dL (7-20) Creatinine 0.9 mg/dL (0.6-1.0) Estimated GFR (Cockcroft-Gault) 60.4 Glucose Level 145 mg/dL (70-99) Calcium Level 9.3 mg/dL (8.5-10.1) Triglycerides Level 124 mg/dL (0-150) Cholesterol Level 110 mg/dL (0-200) LDL Cholesterol, Calculated 48 mg/dL (0-100) VLDL Cholesterol, Calculated 25 mg/dL (0-40) Non-HDL Cholesterol Calculated 73 mg/dL (0-129) HDL Cholesterol 37 mg/dL (40-60) Cholesterol/HDL Ratio 3.0 Test 12/17/21 07:31 12/17/21 11:40 12/17/21 17:07 12/17/21 19:22 Glucose (Fingerstick) 137 mg/dL (70-99) 150 mg/dL (70-99) 128 mg/dL (70-99) 232 mg/dL (70-99) Test 12/18/21 07:41 Glucose (Fingerstick) 144 mg/dL (70-99) Laboratory Tests Test 12/17/21 11:40 12/17/21 17:07 12/17/21 19:22 12/18/21 07:41 Glucose (Fingerstick) 150 mg/dL (70-99) 128 mg/dL (70-99) 232 mg/dL (70-99) 144 mg/dL (70-99) Medications Active Scripts Medications Dose Route/Sig Max Daily Dose Days Date Category Dose Instructions Ocuvite Lutein 25-5 mg Softgel (Lutein/Zeaxanthin) 1 Each Capsule 1 Cap PO DAILY 30 12/15/21 Reported Acidophilus (Lactobacillus Acidophilus) 1 Each Tab.chew 1 Each PO DAILY 12/15/21 Reported Hydrocodone-Acetamin 5-325 mg (Hydrocodone/Acetaminophen) 1 Each Tablet 1 Each PO Q6HRS PRN 7 07/31/21 Rx [Creon] 07/30/21 Reported Tylenol Extra Strength (Acetaminophen) 500 Mg Tablet 500 Mg PO BID 07/30/21 Reported Calcium (Calcium Carbonate) 500 Mg Tablet 500 Mg PO TID 07/30/21 Reported Protonix (Pantoprazole Sodium) 20 Mg Tablet.dr 20 Mg PO DAILY 07/30/21 Reported Folic Acid 0.4 Mg Tablet 0.4 Mg PO DAILY 07/30/21 Reported Vitamin D3 (Vitamin D) 125 Mcg Capsule 125 Mcg PO DAILY 07/30/21 Reported 5,000 UNITS = 125 MCG Methotrexate (Methotrexate Sodium) 2.5 Mg Tablet 6 Tab PO WEEKLY 07/30/21 Reported Ocuvite Tablet (Vit A,C & E/Lutein/Minerals) 1 Each Tablet 1 Tab PO DAILY 30 07/30/21 Reported Probiotic (Lactobacillus Combo No.10) 1 Each Capsule 1 Tab PO DAILY 30 07/30/21 Reported Lyrica (Pregabalin) 150 Mg Capsule 150 Mg PO TID 30 07/30/21 Reported Impression . 1. Acute hypoxic respiratory failure with progression of reticular nodular interstitial infiltrates along with increasing bronchiectasis. This is a patient who is immunocompromised. She is on methotrexate for rheumatoid arthritis. She is at risk for opportunistic and gram-negative infection such as Pseudomonas. Her CT chest presentation is also highly suspicious for Mycobacterium avium complex infection. She has reticular nodular interstitial infiltrates along with bronchiectasis. There has been progression since previous two CAT scans. 2. Acute kidney injury, resolved. 3. No significant tobaccoism. 4. Updated on COVID-19 vaccination. 5. Mild bronchospasm, likely secondary to infectious etiology. She does not have any significant tobaccoism. Plan . RECOMMENDATIONS: 1. Discussed with the patient. At this time, I would recommend continuing with cefepime to cover for gram-negative infection. Clinically improving 2. We will follow chest x-ray or even a CT chest. If there is no improvement, then we will consider doing bronchoscopy to rule out Mycobacterium avium infection. Can be done as an outpatient. 3. Continue heparin for DVT prophylaxis. 4. DuoNebs. 5. Pulmicort. 6. Possible discharge on oral antibiotics in 24 to 48 hours BEATRICE MERRITT MD Dec 18, 2021 10:07
[2021-12-18] MEDS: PREGABALIN 75 MG CAPSULE PO SCH ×3 (10:13→21:28)
[2021-12-18 10:55] VITALS: BP 106/65
--- NOTE | 2021-12-18 11:19 | PDOC ---
ISSAC JENKINS COMMUNICATIONS MARKETING INTERN 12/18/21 1119: CARDIO Progress Notes Date and Time Date of Service 12/18/2021 Time of Evaluation 1040 Subjective Subjective: No Chest Pain, No Palpitations, Other (SOA better) Vitals Vitals Vital Signs Date Time Temp Pulse Resp B/P (MAP) Pulse Ox O2 Delivery O2 Flow Rate FiO2 12/18/21 10:55 99.4 81 16 106/65 (79) 94 Nasal Cannula 2.0 99.4 Weight Weight [ ] Input and Output Intake and Output Intake and Output 12/18/21 07:00 Intake Total 1110 ml Output Total 1400 ml Balance -290 ml Intake Oral 1110 ml Output Urine Total 1400 ml Laboratory Labs Laboratory Tests Test 12/17/21 11:40 12/17/21 17:07 12/17/21 19:22 12/18/21 07:41 Glucose (Fingerstick) 150 mg/dL (70-99) 128 mg/dL (70-99) 232 mg/dL (70-99) 144 mg/dL (70-99) Microbiology Micro Microbiology 12/14/21 Urine Culture - Final, Complete 12/14/21 Blood Culture - Preliminary, Resulted NO GROWTH AFTER 3 DAYS Physical Exam HEENT: Neck Supple W Full Motion Chest: Symmetric LUNGS: Clear to Auscultation Heart: S1S2, RRR (SR) Abdomen: Soft N/T Extremities: No Edema Neurology: alert, oriented, follow commands Assessment Assessment 1. Acute respiratory failure secondary to PNA 2. New onset AFIB with RVR; Maintaining SR 3. Hypertension; controlled 4. Hyperlipidemia 5. Diabetes, II 6. Hypothyroidism 7. RA 8. KENNEY; much improved 9. Bacteremia; BC with 2/4 bottles GPC Recommendations Cardizem for rate control Amiodarone for rhythm maintenance. Will d/w primary developer advocate. TTE pending Eliquis for stroke prophylaxis Consider outpatient ischemic evaluation Supportive care Justicifation of Admission Dx: Justifications for Admission: Justification of Admission Dx: N/A WM HALL MD 12/18/21 1325: CARDIO Progress Notes Assessment Assessment Patient seen and examined She reports feeling about the same. I agree with our nurse practitioners assessment and plan. Acute respiratory failure secondary to PNA New onset AFIB with RVR; Maintaining SR. On Cardizem. Amiodarone as above. Hypertension; controlled Hyperlipidemia Diabetes, II Hypothyroidism RA KENNEY; improved Bacteremia; BC with 2/4 bottles GP ISSAC JENKINS APRN Dec 18, 2021 11:19 WM HALL MD Dec 18, 2021 13:25
--- NOTE | 2021-12-18 11:30 | PDOC ---
[employer] PROGRESS NOTE Date of Service DOS: DATE: 12/18/21 TIME: 11:22 Chief Complaint Chief Complaint Acute respiratory failure with hypoxia - due to bronchiectasis/HCAP. Will wean O2 as tolerated. Consult pulmonology who she sees outpatient. Possible rheumatoid lung vs MAC? Gram positive blood cultures - will cont cefepime, f/u results. Abnormal CXR - this is Healthcare-associated pneumonia given assisted living facility setting. Given bronciectasis will treat for pseudomonas, gram negative. 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 Will have pulm assess for possible lung tox given abnormal CT DM2 - A1c 8.1, will initiate jardiance given cardiac arrhythmia and diastolic CHF and tradjenta for oral hypoglycemic agents FEN - Cardiac diet PPX - lovenox FULL CODE DIspo - inpatient History of Present Illness History of Present Illness Ms Weber is a 81 year old female w/ PMHx HTN, GERD, Rheumatoid arthritis, DM2 with neuropathy who presents with report of greater than 2-week history of cough with purulent sputum, shortness of breath. She denies nausea, vomiting, diarrhea. She denies abdominal pain. He does report some chest pressure intermittently for the past 2 weeks as well. She has attributed the chest pressure to coughing. She denies hemoptysis. She is currently residing in an assisted living facility, and she reports that multiple staff members and other patients living that have had similar symptoms. She has been fully vaccinated against COVID-19, including booster, she has had an influenza vaccine as well. She has not recently been hospitalized, denies recent travel, denies recent surgery. She does have a chronically swollen right lower extremity, which is unchanged. She has chronic lower extremity and foot pain secondary to diabetic neuropathy. She is hypoxic on room air, she does not normally require supplemental oxygen. She quit smoking many decades ago. She has no known history of COPD or pulmonary disease. She did have outpatient eval by pulm and CT chest outpatient, she doesn't remember the outcome EKG #1: 1903. Sinus, Rate is 91 bpm, left axis, no ST elevation or TWI EKG #2: 2329. Atrial fibrillation with RVR, Rate is 132 bpm, left axis, no ST elevation or TWI Chest radiograph with bibasilar airspace disease. Given her symptoms and elevated D-dimer she underwent CT pulmonary angiogram revealing no pulmonary embolism but did reveal dilated pulmonary artery trunk suggesting pulmonary artery hypertension as well as diffuse scattered bilateral groundglass consolidative opacities with tree-in-bud appearance and hepatic steatosis incidentally Labs with WBC 12.7, Hb 11.3, platelets 200, NA 139, K3.9, BUN 31, CR 1.4, glucose 139, albumin 2.9 otherwise LFTs within normal laboratory limits, high- sensitivity troponin is 30, NT proBNP is 847, urinalysis with moderate leuk esterase, rapid influenza negative, rapid COVID-19 negative, D-dimer 1.35 12/16: Blood cultures resulted +2 bottles with gram-positive cocci. Discussed with pulmonology bronchiectatic changes and chronic methotrexate are concerning for possible MAC. We will continue on cefepime but ultimately patient will likely need a bronchoscopy. Glucose fasting has been in the 150s not on steroid treatment will check A1c and place on insulin as needed. Also she is back in atrial fibrillation. Will have consultation with cardiology 12/17: Blood cultures with staph hominis. Still with significant bronchospasm. She symptomatically feels very weak but is willing to try to get out of bed today. Atrial fibrillation relatively rate controlled, may need to change to Cardizem if bronchospasm continues 12/18: Severe weakness of bilateral lower extremities and pain on standing cannot stand without 2 person assist. From a respiratory standpoint she still feels very short of breath with cough does not feel she is making much improvement. S till with bronchospasms. Vitals/I&O Vitals/I&O: Vital Signs Date Time Temp Pulse Resp B/P (MAP) Pulse Ox O2 Delivery O2 Flow Rate FiO2 12/18/21 10:55 99.4 81 16 106/65 (79) 94 Nasal Cannula 2.0 99.4 I & O 12/17/21 12/17/21 12/18/21 15:00 23:00 07:00 Intake Total 570 ml 540 ml 0 ml Output Total 1400 ml Balance 570 ml 540 ml -1400 ml Physical Exam General: Alert, Oriented X3, Cooperative, No acute distress Heart: Regular rate Lungs: Wheezing (Resolved) Abdomen: Soft, No tenderness Extremities: No edema, Normal pulses Skin: No significant lesion Labs Labs: Laboratory Tests Test 12/17/21 11:40 12/17/21 17:07 12/17/21 19:22 12/18/21 07:41 Glucose (Fingerstick) 150 mg/dL (70-99) 128 mg/dL (70-99) 232 mg/dL (70-99) 144 mg/dL (70-99) Assessment and Plan Assessmemt and Plan Problems Medical Problems: (1) Healthcare-associated pneumonia Status: Acute (2) Paroxysmal atrial fibrillation Status: Acute (3) Respiratory failure with hypoxia Status: Acute Comment Review of Relevant I have reviewed the following items kierra (where applicable) has been applied. Medications: Current Medications Medications (Trade) Dose Ordered Sig/Juany Route PRN Reason Start Time Stop Time Status Last Admin Dose Admin Empaglifozin (Jardiance) 25 mg DAILY PO 12/17/21 14:00 12/18/21 09:27 Linagliptin (Tradjenta) 5 mg DAILY PO 12/17/21 14:00 12/18/21 09:26 Amiodarone HCl (Cordarone) 200 mg BID PO 12/17/21 15:00 12/23/21 21:01 12/18/21 09:28 Apixaban (Eliquis) 5 mg BID PO 12/17/21 21:00 12/18/21 09:28 Heparin Sodium (Porcine) (Heparin Sodium) 5,000 unit Q8HRS SQ 12/17/21 15:00 12/17/21 20:00 DC 12/17/21 15:23 Justifications for Admission Other Justification NEELA AYALA MD Dec 18, 2021 11:30
--- NOTE | 2021-12-18 11:50 | NUR ---
SS following up with discharge planning. SS reviewed pt chart and discussed with pt RN. Pt is currently requiring oxygen at two liters nasal canula. COVID19 negative. PT/OT ordered. Not medically ready. Pt is from [facility], ; fax [phone]. SS will continue to follow for discharge planning.
[2021-12-18] MEDS ORDERED: MAGNESIUM CITRATE 296 ML SOLUTION. PO ONE (12:30)
[2021-12-18] MEDS: POLYETHYLENE GLYCOL 3350 17 GM PACKET. PO SCH (14:55)
[2021-12-18 15:00] VITALS: BP 118/41
--- NOTE | 2021-12-18 16:30 | CARD ---
MR#: [id number] Date of Study: 12/18/2021 Ordering Physician: DOMONIQUE VICENTE, Referring Physician: DOMONIQUE VICENTE, Tech: Mary Jane Leroy [facility] APPROVED REPORT EXAM: Two-dimensional and M-mode echocardiogram with Doppler and color Doppler. Other Information Quality : Technically LimitedHR: 82bpm Rhythm : NSR INDICATION Atrial Fibrillation RISK FACTORS Hypertension Obesity 2D DIMENSIONS RVDd3.0 (2.9-3.5cm)Left Atrium(2D)2.5 (1.6-4.0cm) IVSd1.1 (0.7-1.1cm)Aortic Root(2D)3.0 (2.0-3.7cm) LVDd4.2 (3.9-5.9cm)LVOT Diameter1.8 (1.8-2.4cm) PWd1.1 (0.7-1.1cm)LVDs2.6 (2.5-4.0cm) FS (%) 37.3 %SV52.1 ml LVEF(%)67.8 (>50%) Aortic Valve AoV Peak Jason.219.2cm/sAoV VTI39.3cm AO Peak GR.19.2mmHgLVOT Peak Jason.142.8cm/s AO Mean GR.8mmHgAVA (VMAX)1.63cm2 Mitral Valve MV E Anmiotlq51.4cm/sMV DECEL SGLN056zb MV A Iknathuc47.7cm/sE/A Ratio0.8 Tricuspid Valve TR P. Couuilqg178iq/sTR Peak Gr.34mmHg LEFT VENTRICLE The left ventricle is normal size. There is mild concentric left ventricular hypertrophy. The left ve ntricular systolic function is normal and the ejection fraction is within normal range. Estimated eje ction fraction 60-65%. There is normal LV segmental wall motion. Transmitral Doppler flow pattern is Grade I-abnormal relaxation pattern. RIGHT VENTRICLE The right ventricle is normal size. There is normal right ventricular wall thickness. The right ventr icular systolic function is normal. ATRIA The left atrium size is normal. The right atrium size is normal. The interatrial septum is intact wit h no evidence for an atrial septal defect or patent foramen ovale as noted on 2-D or Doppler imaging. AORTIC VALVE The aortic valve is normal in structure and function. Doppler and Color Flow revealed no significant aortic regurgitation. There is no significant aortic valvular stenosis. MITRAL VALVE The mitral valve is normal in structure and function. There is no evidence of mitral valve prolapse. There is no mitral valve stenosis. Doppler and Color Flow revealed no mitral valve regurgitation note d. TRICUSPID VALVE The tricuspid valve is normal in structure and function. Doppler and Color Flow revealed trace tricus pid regurgitation. Estimated PAP 40 mmHg. There is no tricuspid valve stenosis. PULMONIC VALVE Doppler and Color Flow revealed no pulmonic valvular regurgitation. There is no pulmonic valvular eddi nosis. GREAT VESSELS The aortic root is normal in size. The ascending aorta is normal in size. The IVC is normal in size a nd collapses >50% with inspiration. PERICARDIAL EFFUSION There is no evidence of significant pericardial effusion. Critical Notification Critical Value: No <Conclusion> The left ventricular systolic function is normal and the ejection fraction is within normal range. E stimated ejection fraction 60-65%. There is normal LV segmental wall motion. Signed by : Jamey Burnett, Electronically Approved : 12/18/2021 16:29:42
[2021-12-18 19:00] VITALS: BP 110/63
[2021-12-18] MEDS: PSYLLIUM HUSK (SUGAR FREE) 1 PKT PACKET PO SCH (21:29)
[2021-12-18] MEDS: CEFEPIME HCL IV Push 2 GM VIAL. IVP SCH (21:29)
[2021-12-18] MEDS: traMADol 50 MG TABLET PO PRN (21:41)
[2021-12-18 22:11] VITALS: BP 107/44
[2021-12-19 02:35] VITALS: BP 126/51
[2021-12-19 05:12] LABS: BASO % 1 % (0-3); EOS # 0.1 x10^3/uL (0.0-0.7); EOS % 1 % (0-3); HEMATOCRIT 38.3 % (36.0-47.0); HEMOGLOBIN 11.8 g/dL (12.0-15.5); LYMPH # 0.9 x10^3/uL (1.0-4.8); LYMPH % 11 % (24-48); MEAN CORPUSCULAR HEMOGLOBIN 25 pg (25-35); MEAN CORPUSCULAR HGB CONC 31 g/dL (31-37); MEAN CORPUSCULAR VOLUME 82 fL (79-100); MONO # 0.7 x10^3/uL (0.0-1.1); MONO % 8 % (0-9); NEUT # 6.7 x10^3/uL (1.8-7.7); NEUT % 79 % (31-73); PLATELET COUNT 197 x10^3/uL (140-400); RED BLOOD COUNT 4.69 x10^6/uL (3.50-5.40); RED CELL DISTRIBUTION WIDTH 19.9 % (11.5-14.5); WHITE BLOOD COUNT 8.4 x10^3/uL (4.0-11.0)
[2021-12-19 05:46] LABS: CALCIUM 9.1 mg/dL (8.5-10.1); CREATININE 0.9 mg/dL (0.6-1.0); GFR 60.4; POTASSIUM 4.4 mmol/L (3.5-5.1)
[2021-12-19 07:00] VITALS: BP 109/48
[2021-12-19 07:22] LABS: % BANDS 18 % (0-9); % BASOS 2 % (0-3); % LYMPHS 12 % (24-48); % MONOS 9 % (0-10); % MYELOS 3 % (0-0); % SEGS 56 % (35-66); PLT ESTIMATE ADEQUATE (ADEQUATE)
[2021-12-19 07:23] LABS: ANISOCYTOSIS SLIGHT; POLYCHROMASIA SLIGHT; TEAR DROP CELLS OCC
[2021-12-19 07:25] LABS: OVALOCYTES PRESENT
[2021-12-19] MEDS: PANTOPRAZOLE 40 MG TABLET.DR. PO SCH (07:54)
[2021-12-19] MEDS: INSULIN LISPRO 300 UNITS/3 ML VIAL. SQ SCH ×3 (08:00→16:51)
[2021-12-19] MEDS: BUDESONIDE 0.5 MG/2 ML NEBU. NEB SCH ×2 (08:10→20:25)
[2021-12-19] MEDS: IPRATRPIUM/ALBUTEROL 0.5/2.5MG 3 ML NEBU. NEB SCH ×4 (08:10→20:25)
[2021-12-19] MEDS: AMIODARONE HCL 200 MG TABLET. PO SCH ×3 (08:12→21:11)
--- NOTE | 2021-12-19 08:12 | NUR ---
per Charge nurse, hold amiodorone and cardizem due to episodes of bradycardia.
[2021-12-19] MEDS: APIXABAN 5 MG TABLET. PO SCH ×2 (09:00→21:11)
[2021-12-19] MEDS: CALCIUM CARBONATE 500 MG TABLET PO SCH ×3 (09:01→21:11)
[2021-12-19] MEDS: LINAGLIPTIN 5 MG TABLET PO SCH (09:01)
[2021-12-19] MEDS: EMPAGLIFLOZIN 25 MG TABLET. PO SCH (09:01)
[2021-12-19] MEDS: PREGABALIN 75 MG CAPSULE PO SCH ×3 (09:01→21:11)
[2021-12-19] MEDS: CHOLECALCIFEROL (VITAMIN D3) 5,000 UNIT CAPSULE PO SCH (09:01)
[2021-12-19] MEDS: POLYETHYLENE GLYCOL 3350 17 GM PACKET. PO SCH (09:02)
--- NOTE | 2021-12-19 09:50 | PDOC ---
PULMONARY PROGRESS NOTES DATE: 12/19/21 TIME: 09:49 Subjective Feels weak. No significant cough or shortness of breath. Vitals Vital Signs Date Time Temp Pulse Resp B/P (MAP) Pulse Ox O2 Delivery O2 Flow Rate FiO2 12/19/21 08:14 93 Nasal Cannula 3.0 12/19/21 08:12 54 12/19/21 07:00 96.5 17 109/48 (68) 96.5 General: Alert, No acute distress Lungs: Wheezing (Resolved) Cardiovascular: S1 Abdomen: Soft Neuro Exam: Alert Extremities: No Edema Skin: Warm Labs Laboratory Tests Test 12/17/21 11:40 12/17/21 17:07 12/17/21 19:22 12/18/21 07:41 Glucose (Fingerstick) 150 mg/dL (70-99) 128 mg/dL (70-99) 232 mg/dL (70-99) 144 mg/dL (70-99) Test 12/18/21 11:36 12/18/21 17:19 12/18/21 20:10 12/19/21 04:10 Glucose (Fingerstick) 141 mg/dL (70-99) 125 mg/dL (70-99) 149 mg/dL (70-99) White Blood Count 8.4 x10^3/uL (4.0-11.0) Red Blood Count 4.69 x10^6/uL (3.50-5.40) Hemoglobin 11.8 g/dL (12.0-15.5) Hematocrit 38.3 % (36.0-47.0) Mean Corpuscular Volume 82 fL (79-100) Mean Corpuscular Hemoglobin 25 pg (25-35) Mean Corpuscular Hemoglobin Concent 31 g/dL (31-37) Red Cell Distribution Width 19.9 % (11.5-14.5) Platelet Count 197 x10^3/uL (140-400) Neutrophils (%) (Auto) 79 % (31-73) Lymphocytes (%) (Auto) 11 % (24-48) Monocytes (%) (Auto) 8 % (0-9) Eosinophils (%) (Auto) 1 % (0-3) Basophils (%) (Auto) 1 % (0-3) Neutrophils # (Auto) 6.7 x10^3/uL (1.8-7.7) Lymphocytes # (Auto) 0.9 x10^3/uL (1.0-4.8) Monocytes # (Auto) 0.7 x10^3/uL (0.0-1.1) Eosinophils # (Auto) 0.1 x10^3/uL (0.0-0.7) Basophils # (Auto) 0.0 x10^3/uL (0.0-0.2) Segmented Neutrophils % 56 % (35-66) Band Neutrophils % 18 % (0-9) Lymphocytes % 12 % (24-48) Monocytes % 9 % (0-10) Basophils % 2 % (0-3) Myelocytes % 3 % (0-0) Platelet Estimate Adequate (ADEQUATE) Polychromasia Slight Anisocytosis Slight Tear Drop Cells Occ Ovalocytes Present Sodium Level 147 mmol/L (136-145) Potassium Level 4.4 mmol/L (3.5-5.1) Chloride Level 105 mmol/L (98-107) Carbon Dioxide Level 37 mmol/L (21-32) Anion Gap 5 (6-14) Blood Urea Nitrogen 13 mg/dL (7-20) Creatinine 0.9 mg/dL (0.6-1.0) Estimated GFR (Cockcroft-Gault) 60.4 Glucose Level 136 mg/dL (70-99) Calcium Level 9.1 mg/dL (8.5-10.1) Test 12/19/21 08:05 Glucose (Fingerstick) 118 mg/dL (70-99) Laboratory Tests Test 12/18/21 11:36 12/18/21 17:19 12/18/21 20:10 12/19/21 04:10 Glucose (Fingerstick) 141 mg/dL (70-99) 125 mg/dL (70-99) 149 mg/dL (70-99) White Blood Count 8.4 x10^3/uL (4.0-11.0) Red Blood Count 4.69 x10^6/uL (3.50-5.40) Hemoglobin 11.8 g/dL (12.0-15.5) Hematocrit 38.3 % (36.0-47.0) Mean Corpuscular Volume 82 fL (79-100) Mean Corpuscular Hemoglobin 25 pg (25-35) Mean Corpuscular Hemoglobin Concent 31 g/dL (31-37) Red Cell Distribution Width 19.9 % (11.5-14.5) Platelet Count 197 x10^3/uL (140-400) Neutrophils (%) (Auto) 79 % (31-73) Lymphocytes (%) (Auto) 11 % (24-48) Monocytes (%) (Auto) 8 % (0-9) Eosinophils (%) (Auto) 1 % (0-3) Basophils (%) (Auto) 1 % (0-3) Neutrophils # (Auto) 6.7 x10^3/uL (1.8-7.7) Lymphocytes # (Auto) 0.9 x10^3/uL (1.0-4.8) Monocytes # (Auto) 0.7 x10^3/uL (0.0-1.1) Eosinophils # (Auto) 0.1 x10^3/uL (0.0-0.7) Basophils # (Auto) 0.0 x10^3/uL (0.0-0.2) Segmented Neutrophils % 56 % (35-66) Band Neutrophils % 18 % (0-9) Lymphocytes % 12 % (24-48) Monocytes % 9 % (0-10) Basophils % 2 % (0-3) Myelocytes % 3 % (0-0) Platelet Estimate Adequate (ADEQUATE) Polychromasia Slight Anisocytosis Slight Tear Drop Cells Occ Ovalocytes Present Sodium Level 147 mmol/L (136-145) Potassium Level 4.4 mmol/L (3.5-5.1) Chloride Level 105 mmol/L (98-107) Carbon Dioxide Level 37 mmol/L (21-32) Anion Gap 5 (6-14) Blood Urea Nitrogen 13 mg/dL (7-20) Creatinine 0.9 mg/dL (0.6-1.0) Estimated GFR (Cockcroft-Gault) 60.4 Glucose Level 136 mg/dL (70-99) Calcium Level 9.1 mg/dL (8.5-10.1) Test 12/19/21 08:05 Glucose (Fingerstick) 118 mg/dL (70-99) Medications Active Scripts Medications Dose Route/Sig Max Daily Dose Days Date Category Dose Instructions Ocuvite Lutein 25-5 mg Softgel (Lutein/Zeaxanthin) 1 Each Capsule 1 Cap PO DAILY 30 12/15/21 Reported Acidophilus (Lactobacillus Acidophilus) 1 Each Tab.chew 1 Each PO DAILY 12/15/21 Reported Hydrocodone-Acetamin 5-325 mg (Hydrocodone/Acetaminophen) 1 Each Tablet 1 Each PO Q6HRS PRN 7 07/31/21 Rx [Creon] 07/30/21 Reported Tylenol Extra Strength (Acetaminophen) 500 Mg Tablet 500 Mg PO BID 07/30/21 Reported Calcium (Calcium Carbonate) 500 Mg Tablet 500 Mg PO TID 07/30/21 Reported Protonix (Pantoprazole Sodium) 20 Mg Tablet.dr 20 Mg PO DAILY 07/30/21 Reported Folic Acid 0.4 Mg Tablet 0.4 Mg PO DAILY 07/30/21 Reported Vitamin D3 (Vitamin D) 125 Mcg Capsule 125 Mcg PO DAILY 07/30/21 Reported 5,000 UNITS = 125 MCG Methotrexate (Methotrexate Sodium) 2.5 Mg Tablet 6 Tab PO WEEKLY 07/30/21 Reported Ocuvite Tablet (Vit A,C & E/Lutein/Minerals) 1 Each Tablet 1 Tab PO DAILY 30 07/30/21 Reported Probiotic (Lactobacillus Combo No.10) 1 Each Capsule 1 Tab PO DAILY 30 07/30/21 Reported Lyrica (Pregabalin) 150 Mg Capsule 150 Mg PO TID 30 07/30/21 Reported Impression . 1. Acute hypoxic respiratory failure with progression of reticular nodular interstitial infiltrates along with increasing bronchiectasis. This is a patient who is immunocompromised. She is on methotrexate for rheumatoid arthritis. She is at risk for opportunistic and gram-negative infection such as Pseudomonas. Her CT chest presentation is also highly suspicious for Mycobacterium avium complex infection. She has reticular nodular interstitial infiltrates along with bronchiectasis. There has been progression since previous two CAT scans. 2. Acute kidney injury, resolved. 3. No significant tobaccoism. 4. Updated on COVID-19 vaccination. 5. Mild bronchospasm, likely secondary to infectious etiology. She does not have any significant tobaccoism. Resolved. Plan . RECOMMENDATIONS: 1. Discussed with the patient. At this time, I would recommend continuing with cefepime to cover for gram-negative infection. 2. We will follow chest x-ray today. If there is improvement, antibiotics can be switched to oral and possible discharge in 24 hours. If there is no improvement, then we will consider doing bronchoscopy to rule out Mycobacterium avium infection. Will be done as an outpatient. 3. Continue heparin for DVT prophylaxis. 4. DuoNebs. 5. Pulmicort. 6. Possible discharge on oral antibiotics in 24 to 48 hours BEATRICE MERRITT MD Dec 19, 2021 09:50
--- NOTE | 2021-12-19 10:43 | NUR ---
Per Jose Martin Orlando APRN with Dr. Burnett, administer amiodorone and cardizem as ordered.
--- NOTE | 2021-12-19 10:46 | PDOC ---
[employer] PROGRESS NOTE Date of Service DOS: DATE: 12/19/21 TIME: 10:43 Chief Complaint Chief Complaint Acute respiratory failure with hypoxia - due to bronchiectasis/HCAP. Will wean O2 as tolerated. Consult pulmonology who she sees outpatient. Possible rheumatoid lung vs MAC? Gram positive blood cultures - will cont cefepime, f/u results staph hominis likely is a contaminant but patient is immunosuppressed we will continue cef epime Abnormal CXR - this is Healthcare-associated pneumonia given assisted living facility setting. Given bronciectasis will treat for pseudomonas, gram negative. 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 Will have pulm assess for possible lung tox given abnormal CT DM2 - A1c 8.1, will initiate jardiance given cardiac arrhythmia and diastolic CHF and tradjenta for oral hypoglycemic agents FEN - Cardiac diet PPX - lovenox FULL CODE DIspo - inpatient History of Present Illness History of Present Illness Ms Weber is a 81 year old female w/ PMHx HTN, GERD, Rheumatoid arthritis, DM2 with neuropathy who presents with report of greater than 2-week history of cough with purulent sputum, shortness of breath. She denies nausea, vomiting, diarrhea. She denies abdominal pain. He does report some chest pressure intermittently for the past 2 weeks as well. She has attributed the chest pressure to coughing. She denies hemoptysis. She is currently residing in an assisted living facility, and she reports that multiple staff members and other patients living that have had similar symptoms. She has been fully vaccinated against COVID-19, including booster, she has had an influenza vaccine as well. She has not recently been hospitalized, denies recent travel, denies recent surgery. She does have a chronically swollen right lower extremity, which is unchanged. She has chronic lower extremity and foot pain secondary to diabetic neuropathy. She is hypoxic on room air, she does not normally require supplemental oxygen. She quit smoking many decades ago. She has no known history of COPD or pulmonary disease. She did have outpatient eval by pulm and CT chest outpatient, she doesn't remember the outcome EKG #1: 190. Sinus, Rate is 91 bpm, left axis, no ST elevation or TWI EKG #2: 2329. Atrial fibrillation with RVR, Rate is 132 bpm, left axis, no ST elevation or TWI Chest radiograph with bibasilar airspace disease. Given her symptoms and elevated D-dimer she underwent CT pulmonary angiogram revealing no pulmonary embolism but did reveal dilated pulmonary artery trunk suggesting pulmonary artery hypertension as well as diffuse scattered bilateral groundglass consolidative opacities with tree-in-bud appearance and hepatic steatosis incidentally Labs with WBC 12.7, Hb 11.3, platelets 200, NA 139, K3.9, BUN 31, CR 1.4, glucose 139, albumin 2.9 otherwise LFTs within normal laboratory limits, high- sensitivity troponin is 30, NT proBNP is 847, urinalysis with moderate leuk esterase, rapid influenza negative, rapid COVID-19 negative, D-dimer 1.35 12/16: Blood cultures resulted +2 bottles with gram-positive cocci. Discussed with pulmonology bronchiectatic changes and chronic methotrexate are concerning for possible MAC. We will continue on cefepime but ultimately patient will likely need a bronchoscopy. Glucose fasting has been in the 150s not on steroid treatment will check A1c and place on insulin as needed. Also she is back in atrial fibrillation. Will have consultation with cardiology 12/17: Blood cultures with staph hominis. Still with significant bronchospasm. She symptomatically feels very weak but is willing to try to get out of bed tod ay. Atrial fibrillation relatively rate controlled, may need to change to Cardizem if bronchospasm continues 12/18: Severe weakness of bilateral lower extremities and pain on standing cannot stand without 2 person assist. From a respiratory standpoint she still feels very short of breath with cough does not feel she is making much improvement. Still with bronchospasms. 12/19: Breathing is improved somewhat but she still feels extremely weak. Bilateral lower extremity pain is chronic present. No chest pain today. Remains in sinus rhythm. Therapy has recommended skilled. Discussed with pulmonology may be able to transition to oral antibiotics the next 24 to 48 hours and will get repeat chest x-ray as an underlying concern for MAC is present and would potentially need outpatient bronchoscopy. Vitals/I&O Vitals/I&O: Vital Signs Date Time Temp Pulse Resp B/P (MAP) Pulse Ox O2 Delivery O2 Flow Rate FiO2 12/19/21 09:53 67 109/48 12/19/21 08:14 93 Nasal Cannula 3.0 12/19/21 07:00 96.5 17 96.5 I & O 12/18/21 12/18/21 12/19/21 15:00 23:00 07:00 Intake Total 720 ml 410 ml 200 ml Output Total 200 ml 1250 ml Balance 720 ml 210 ml -1050 ml Physical Exam General: Alert, Oriented X3, Cooperative, No acute distress Heart: Regular rate Lungs: Wheezing (Resolved) Abdomen: Soft, No tenderness Extremities: No edema, Normal pulses Skin: No significant lesion Labs Labs: Laboratory Tests Test 12/18/21 11:36 12/18/21 17:19 12/18/21 20:10 12/19/21 04:10 Glucose (Fingerstick) 141 mg/dL (70-99) 125 mg/dL (70-99) 149 mg/dL (70-99) White Blood Count 8.4 x10^3/uL (4.0-11.0) Red Blood Count 4.69 x10^6/uL (3.50-5.40) Hemoglobin 11.8 g/dL (12.0-15.5) Hematocrit 38.3 % (36.0-47.0) Mean Corpuscular Volume 82 fL (79-100) Mean Corpuscular Hemoglobin 25 pg (25-35) Mean Corpuscular Hemoglobin Concent 31 g/dL (31-37) Red Cell Distribution Width 19.9 % (11.5-14.5) Platelet Count 197 x10^3/uL (140-400) Neutrophils (%) (Auto) 79 % (31-73) Lymphocytes (%) (Auto) 11 % (24-48) Monocytes (%) (Auto) 8 % (0-9) Eosinophils (%) (Auto) 1 % (0-3) Basophils (%) (Auto) 1 % (0-3) Neutrophils # (Auto) 6.7 x10^3/uL (1.8-7.7) Lymphocytes # (Auto) 0.9 x10^3/uL (1.0-4.8) Monocytes # (Auto) 0.7 x10^3/uL (0.0-1.1) Eosinophils # (Auto) 0.1 x10^3/uL (0.0-0.7) Basophils # (Auto) 0.0 x10^3/uL (0.0-0.2) Segmented Neutrophils % 56 % (35-66) Band Neutrophils % 18 % (0-9) Lymphocytes % 12 % (24-48) Monocytes % 9 % (0-10) Basophils % 2 % (0-3) Myelocytes % 3 % (0-0) Platelet Estimate Adequate (ADEQUATE) Polychromasia Slight Anisocytosis Slight Tear Drop Cells Occ Ovalocytes Present Sodium Level 147 mmol/L (136-145) Potassium Level 4.4 mmol/L (3.5-5.1) Chloride Level 105 mmol/L (98-107) Carbon Dioxide Level 37 mmol/L (21-32) Anion Gap 5 (6-14) Blood Urea Nitrogen 13 mg/dL (7-20) Creatinine 0.9 mg/dL (0.6-1.0) Estimated GFR (Cockcroft-Gault) 60.4 Glucose Level 136 mg/dL (70-99) Calcium Level 9.1 mg/dL (8.5-10.1) Test 12/19/21 08:05 Glucose (Fingerstick) 118 mg/dL (70-99) Assessment and Plan Assessmemt and Plan Problems Medical Problems: (1) Healthcare-associated pneumonia Status: Acute (2) Paroxysmal atrial fibrillation Status: Acute (3) Respiratory failure with hypoxia Status: Acute Comment Review of Relevant I have reviewed the following items kierra (where applicable) has been applied. Medications: Current Medications Medications (Trade) Dose Ordered Sig/Juany Route PRN Reason Start Time Stop Time Status Last Admin Dose Admin Polyethylene Glycol (miraLAX PACKET) 17 gm DAILY PO 12/18/21 11:30 12/19/21 09:02 Justifications for Admission Other Justification NEELA AYALA MD Dec 19, 2021 10:46
[2021-12-19 11:00] VITALS: BP_SYST 142; BP_SYST 167; BP_DIAS 107; BP_DIAS 63
--- NOTE | 2021-12-19 11:29 | PDOC ---
ISSAC JENKINS FREIGHT TRAFFIC CONSULTANT 12/19/21 1129: CARDIO Progress Notes Date and Time Date of Service 12/19/2021 Time of Evaluation 1110 Subjective Subjective: No Chest Pain, No Palpitations, Other (SOA better) Vitals Vitals Vital Signs Date Time Temp Pulse Resp B/P (MAP) Pulse Ox O2 Delivery O2 Flow Rate FiO2 12/19/21 09:53 67 109/48 12/19/21 08:14 93 Nasal Cannula 3.0 12/19/21 07:00 96.5 17 96.5 Weight Weight [ ] Input and Output Intake and Output Intake and Output 12/19/21 07:00 Intake Total 1330 ml Output Total 1450 ml Balance -120 ml Intake Oral 1330 ml Output Urine Total 1450 ml Laboratory Labs Laboratory Tests Test 12/18/21 11:36 12/18/21 17:19 12/18/21 20:10 12/19/21 04:10 Glucose (Fingerstick) 141 mg/dL (70-99) 125 mg/dL (70-99) 149 mg/dL (70-99) White Blood Count 8.4 x10^3/uL (4.0-11.0) Red Blood Count 4.69 x10^6/uL (3.50-5.40) Hemoglobin 11.8 g/dL (12.0-15.5) Hematocrit 38.3 % (36.0-47.0) Mean Corpuscular Volume 82 fL (79-100) Mean Corpuscular Hemoglobin 25 pg (25-35) Mean Corpuscular Hemoglobin Concent 31 g/dL (31-37) Red Cell Distribution Width 19.9 % (11.5-14.5) Platelet Count 197 x10^3/uL (140-400) Neutrophils (%) (Auto) 79 % (31-73) Lymphocytes (%) (Auto) 11 % (24-48) Monocytes (%) (Auto) 8 % (0-9) Eosinophils (%) (Auto) 1 % (0-3) Basophils (%) (Auto) 1 % (0-3) Neutrophils # (Auto) 6.7 x10^3/uL (1.8-7.7) Lymphocytes # (Auto) 0.9 x10^3/uL (1.0-4.8) Monocytes # (Auto) 0.7 x10^3/uL (0.0-1.1) Eosinophils # (Auto) 0.1 x10^3/uL (0.0-0.7) Basophils # (Auto) 0.0 x10^3/uL (0.0-0.2) Segmented Neutrophils % 56 % (35-66) Band Neutrophils % 18 % (0-9) Lymphocytes % 12 % (24-48) Monocytes % 9 % (0-10) Basophils % 2 % (0-3) Myelocytes % 3 % (0-0) Platelet Estimate Adequate (ADEQUATE) Polychromasia Slight Anisocytosis Slight Tear Drop Cells Occ Ovalocytes Present Sodium Level 147 mmol/L (136-145) Potassium Level 4.4 mmol/L (3.5-5.1) Chloride Level 105 mmol/L (98-107) Carbon Dioxide Level 37 mmol/L (21-32) Anion Gap 5 (6-14) Blood Urea Nitrogen 13 mg/dL (7-20) Creatinine 0.9 mg/dL (0.6-1.0) Estimated GFR (Cockcroft-Gault) 60.4 Glucose Level 136 mg/dL (70-99) Calcium Level 9.1 mg/dL (8.5-10.1) Test 12/19/21 08:05 Glucose (Fingerstick) 118 mg/dL (70-99) Microbiology Micro Microbiology 12/14/21 Urine Culture - Final, Complete 12/14/21 Blood Culture - Preliminary, Resulted NO GROWTH AFTER 4 DAYS Physical Exam HEENT: Neck Supple W Full Motion Chest: Symmetric LUNGS: Clear to Auscultation Heart: S1S2, RRR (SR) Abdomen: Soft N/T Extremities: No Edema Neurology: alert, oriented, follow commands Assessment Assessment 1. Acute respiratory failure secondary to PNA 2. New onset AFIB with RVR; Maintaining SR. EF and LV WM nml per TTE 3. Hypertension; controlled 4. Hyperlipidemia 5. Diabetes, II 6. Hypothyroidism 7. RA 8. KENNEY; much improved 9. Bacteremia; BC with 2/4 bottles [facility] Recommendations Cardizem for rate control Amiodarone for rhythm maintenance. Eliquis for stroke prophylaxis Consider outpatient ischemic evaluation Supportive care Justicifation of Admission Dx: Justifications for Admission: Justification of Admission Dx: N/A ELAN CULVER MD 12/20/21 0958: CARDIO Progress Notes Assessment Assessment Patient seen and examined 12/19/21. 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
[2021-12-19] MEDS: ACETAMINOPHEN 325 MG TABLET. PO PRN (11:45)
[2021-12-19] MEDS: traMADol 50 MG TABLET PO PRN (11:45)
--- NOTE | 2021-12-19 13:51 | RAD ---
EXAM: CHEST ONE VIEW. HISTORY: Pneumonia. COMPARISON: 12/14/2021. FINDINGS: A frontal view of the chest is obtained. Basilar predominant interstitial infiltrates have increased mildly. There is mild involvement in the right greater than left upper lobes. There is no pneumothorax or clear pleural effusion. The heart is not enlarged. There are atherosclerotic calcifications of the aorta. IMPRESSION: 1. Increased basilar predominant multifocal infiltrates. Electronically signed by: Mellissa Morales MD (12/19/2021 1:48 PM) [id number]
--- NOTE | 2021-12-19 13:59 | NUR ---
SS following up with discharge planning. SS reviewed pt chart and discussed with pt RN. Pt is currently requiring oxygen at three liters nasal canula. COVID19 negative. Pt on IV Cefepime. Pt has no home oxygen. PT/OT recommended shelter unit. SS met with pt and spoke with pt's daughter via phone. Pt and pt's family agreeable to shelter unit and requested referrals to [facility], ; fax [phone], and [facility], ; fax [phone]. Referrals phoned and faxed as requested. COVID19 PCR requested for placement. SS will continue to follow for discharge planning.
[2021-12-19 15:00] VITALS: BP 111/47
[2021-12-19 19:00] VITALS: BP 123/42
[2021-12-19] MEDS: PSYLLIUM HUSK (SUGAR FREE) 1 PKT PACKET PO SCH (21:11)
[2021-12-19] MEDS: CEFEPIME HCL IV Push 2 GM VIAL. IVP SCH (21:51)
[2021-12-19 22:46] VITALS: BP 116/44
[2021-12-20 02:25] VITALS: BP 108/47
[2021-12-20] MEDS: traMADol 50 MG TABLET PO PRN ×2 (02:33→11:01)
[2021-12-20 07:00] VITALS: BP 125/45
[2021-12-20] MEDS: INSULIN LISPRO 300 UNITS/3 ML VIAL. SQ SCH ×3 (08:00→17:00)
[2021-12-20] MEDS: IPRATRPIUM/ALBUTEROL 0.5/2.5MG 3 ML NEBU. NEB SCH ×4 (08:00→19:35)
--- NOTE | 2021-12-20 08:23 | PDOC ---
[employer] PROGRESS NOTE Date of Service DOS: DATE: 12/20/21 TIME: 08:18 Chief Complaint Chief Complaint Acute respiratory failure with hypoxia - due to bronchiectasis/HCAP. Will wean O2 as tolerated. Consult pulmonology who she sees outpatient. Possible rheumatoid lung vs MAC? Gram positive blood cultures - will cont cefepime, f/u results staph hominis likely is a contaminant but patient is immunosuppressed we will continue cefe pime Abnormal CXR - this is Healthcare-associated pneumonia given assisted living facility setting. Given bronciectasis will treat for pseudomonas, gram negative. 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 Will have pulm assess for possible lung tox given abnormal CT DM2 - A1c 8.1, will initiate jardiance given cardiac arrhythmia and diastolic CHF and tradjenta for oral hypoglycemic agents FEN - Cardiac diet PPX - lovenox FULL CODE DIspo - inpatient History of Present Illness History of Present Illness Ms Weber is a 81 year old female w/ PMHx HTN, GERD, Rheumatoid arthritis, DM2 with neuropathy who presents with report of greater than 2-week history of cough with purulent sputum, shortness of breath. She denies nausea, vomiting, diarrhea. She denies abdominal pain. He does report some chest pressure intermittently for the past 2 weeks as well. She has attributed the chest pressure to coughing. She denies hemoptysis. She is currently residing in an assisted living facility, and she reports that multiple staff members and other patients living that have had similar symptoms. She has been fully vaccinated against COVID-19, including booster, she has had an influenza vaccine as well. She has not recently been hospitalized, denies recent travel, denies recent surgery. She does have a chronically swollen right lower extremity, which is unchanged. She has chronic lower extremity and foot pain secondary to diabetic neuropathy. She is hypoxic on room air, she does not normally require supplemental oxygen. She quit smoking many decades ago. She has no known history of COPD or pulmonary disease. She did have outpatient eval by pulm and CT chest outpatient, she doesn't remember the outcome EKG #1: 1903. Sinus, Rate is 91 bpm, left axis, no ST elevation or TWI EKG #2: 2329. Atrial fibrillation with RVR, Rate is 132 bpm, left axis, no ST elevation or TWI Chest radiograph with bibasilar airspace disease. Given her symptoms and elevated D-dimer she underwent CT pulmonary angiogram revealing no pulmonary embolism but did reveal dilated pulmonary artery trunk suggesting pulmonary artery hypertension as well as diffuse scattered bilateral groundglass consolidative opacities with tree-in-bud appearance and hepatic steatosis incidentally Labs with WBC 12.7, Hb 11.3, platelets 200, NA 139, K3.9, BUN 31, CR 1.4, glucose 139, albumin 2.9 otherwise LFTs within normal laboratory limits, high- sensitivity troponin is 30, NT proBNP is 847, urinalysis with moderate leuk esterase, rapid influenza negative, rapid COVID-19 negative, D-dimer 1.35 12/16: Blood cultures resulted +2 bottles with gram-positive cocci. Discussed with pulmonology bronchiectatic changes and chronic methotrexate are concerning for possible MAC. We will continue on cefepime but ultimately patient will likely need a bronchoscopy. Glucose fasting has been in the 150s not on steroid treatment will check A1c and place on insulin as needed. Also she is back in atrial fibrillation. Will have consultation with cardiology 12/17: Blood cultures with staph hominis. Still with significant bronchospasm. She symptomatically feels very weak but is willing to try to get out of bed toda y. Atrial fibrillation relatively rate controlled, may need to change to Cardizem if bronchospasm continues 12/18: Severe weakness of bilateral lower extremities and pain on standing cannot stand without 2 person assist. From a respiratory standpoint she still feels very short of breath with cough does not feel she is making much improvement. Still with bronchospasms. 12/19: Breathing is improved somewhat but she still feels extremely weak. Bilateral lower extremity pain is chronic present. No chest pain today. Remains in sinus rhythm. Therapy has recommended skilled. Discussed with pulmonology may be able to transition to oral antibiotics the next 24 to 48 hours and will get repeat chest x-ray as an underlying concern for MAC is present and would potentially need bronchoscopy. 12/20: Still with significant dyspnea and wheezing. Discussed with cardiology and based on my interpretation chest radiograph worse at the bases. Plan for from [facility] on 12/23/2021 we will continue cefepime IV and continue rehab modalities that she is still very weak and had 2 person assist even to get up to the chair that is right next to her bed. Vitals/I&O Vitals/I&O: Vital Signs Date Time Temp Pulse Resp B/P (MAP) Pulse Ox O2 Delivery O2 Flow Rate FiO2 12/20/21 03:03 96 Nasal Cannula 2.0 12/20/21 02:25 98.0 70 18 108/47 (67) 98.0 I & O 12/19/21 12/19/21 12/20/21 15:00 23:00 07:00 Intake Total 575 ml 350 ml Output Total 550 ml 800 ml Balance 575 ml -200 ml -800 ml Physical Exam General: Alert, Oriented X3, Cooperative, No acute distress Heart: Regular rate Lungs: Wheezing (Resolved) Abdomen: Soft, No tenderness Extremities: No edema, Normal pulses Skin: No significant lesion Labs Labs: Laboratory Tests Test 12/19/21 11:44 12/19/21 14:02 12/19/21 16:25 12/19/21 20:20 Glucose (Fingerstick) 129 mg/dL (70-99) 126 mg/dL (70-99) 136 mg/dL (70-99) Coronavirus (COVID-19)(PCR) Not detected (NOT DETECTD) Test 12/20/21 07:40 Glucose (Fingerstick) 116 mg/dL (70-99) Assessment and Plan Assessmemt and Plan Problems Medical Problems: (1) Healthcare-associated pneumonia Status: Acute (2) Paroxysmal atrial fibrillation Status: Acute (3) Respiratory failure with hypoxia Status: Acute Comment Review of Relevant I have reviewed the following items kierra (where applicable) has been applied. Justifications for Admission Other Justification NEELA AYALA MD Dec 20, 2021 08:23
[2021-12-20] MEDS: CHOLECALCIFEROL (VITAMIN D3) 5,000 UNIT CAPSULE PO SCH (08:27)
[2021-12-20] MEDS: EMPAGLIFLOZIN 25 MG TABLET. PO SCH (08:27)
[2021-12-20] MEDS: PANTOPRAZOLE 40 MG TABLET.DR. PO SCH (08:27)
[2021-12-20] MEDS: POLYETHYLENE GLYCOL 3350 17 GM PACKET. PO SCH (08:28)
[2021-12-20] MEDS: LINAGLIPTIN 5 MG TABLET PO SCH (08:28)
[2021-12-20] MEDS: APIXABAN 5 MG TABLET. PO SCH ×2 (08:28→20:12)
[2021-12-20] MEDS: PREGABALIN 75 MG CAPSULE PO SCH ×3 (08:28→20:12)
[2021-12-20] MEDS: BUDESONIDE 0.5 MG/2 ML NEBU. NEB SCH ×2 (09:05→19:35)
--- NOTE | 2021-12-20 09:45 | PDOC ---
PULMONARY PROGRESS NOTES DATE: 12/20/21 TIME: 09:42 Subjective Feels weak. No significant cough or shortness of breath. Vitals Vital Signs Date Time Temp Pulse Resp B/P (MAP) Pulse Ox O2 Delivery O2 Flow Rate FiO2 12/20/21 09:09 96 Nasal Cannula 3.0 12/20/21 07:00 97.9 66 18 125/45 (71) 97.9 General: Alert, No acute distress Lungs: Wheezing (Resolved) Cardiovascular: S1 Abdomen: Soft Neuro Exam: Alert Extremities: No Edema Skin: Warm Labs Laboratory Tests Test 12/18/21 11:36 12/18/21 17:19 12/18/21 20:10 12/19/21 04:10 Glucose (Fingerstick) 141 mg/dL (70-99) 125 mg/dL (70-99) 149 mg/dL (70-99) White Blood Count 8.4 x10^3/uL (4.0-11.0) Red Blood Count 4.69 x10^6/uL (3.50-5.40) Hemoglobin 11.8 g/dL (12.0-15.5) Hematocrit 38.3 % (36.0-47.0) Mean Corpuscular Volume 82 fL (79-100) Mean Corpuscular Hemoglobin 25 pg (25-35) Mean Corpuscular Hemoglobin Concent 31 g/dL (31-37) Red Cell Distribution Width 19.9 % (11.5-14.5) Platelet Count 197 x10^3/uL (140-400) Neutrophils (%) (Auto) 79 % (31-73) Lymphocytes (%) (Auto) 11 % (24-48) Monocytes (%) (Auto) 8 % (0-9) Eosinophils (%) (Auto) 1 % (0-3) Basophils (%) (Auto) 1 % (0-3) Neutrophils # (Auto) 6.7 x10^3/uL (1.8-7.7) Lymphocytes # (Auto) 0.9 x10^3/uL (1.0-4.8) Monocytes # (Auto) 0.7 x10^3/uL (0.0-1.1) Eosinophils # (Auto) 0.1 x10^3/uL (0.0-0.7) Basophils # (Auto) 0.0 x10^3/uL (0.0-0.2) Segmented Neutrophils % 56 % (35-66) Band Neutrophils % 18 % (0-9) Lymphocytes % 12 % (24-48) Monocytes % 9 % (0-10) Basophils % 2 % (0-3) Myelocytes % 3 % (0-0) Platelet Estimate Adequate (ADEQUATE) Polychromasia Slight Anisocytosis Slight Tear Drop Cells Occ Ovalocytes Present Sodium Level 147 mmol/L (136-145) Potassium Level 4.4 mmol/L (3.5-5.1) Chloride Level 105 mmol/L (98-107) Carbon Dioxide Level 37 mmol/L (21-32) Anion Gap 5 (6-14) Blood Urea Nitrogen 13 mg/dL (7-20) Creatinine 0.9 mg/dL (0.6-1.0) Estimated GFR (Cockcroft-Gault) 60.4 Glucose Level 136 mg/dL (70-99) Calcium Level 9.1 mg/dL (8.5-10.1) Test 12/19/21 08:05 12/19/21 11:44 12/19/21 14:02 12/19/21 16:25 Glucose (Fingerstick) 118 mg/dL (70-99) 129 mg/dL (70-99) 126 mg/dL (70-99) Coronavirus (COVID-19)(PCR) Not detected (NOT DETECTD) Test 12/19/21 20:20 12/20/21 07:40 Glucose (Fingerstick) 136 mg/dL (70-99) 116 mg/dL (70-99) Laboratory Tests Test 12/19/21 11:44 12/19/21 14:02 12/19/21 16:25 12/19/21 20:20 Glucose (Fingerstick) 129 mg/dL (70-99) 126 mg/dL (70-99) 136 mg/dL (70-99) Coronavirus (COVID-19)(PCR) Not detected (NOT DETECTD) Test 12/20/21 07:40 Glucose (Fingerstick) 116 mg/dL (70-99) Medications Active Scripts Medications Dose Route/Sig Max Daily Dose Days Date Category Dose Instructions Ocuvite Lutein 25-5 mg Softgel (Lutein/Zeaxanthin) 1 Each Capsule 1 Cap PO DAILY 30 12/15/21 Reported Acidophilus (Lactobacillus Acidophilus) 1 Each Tab.chew 1 Each PO DAILY 12/15/21 Reported Hydrocodone-Acetamin 5-325 mg (Hydrocodone/Acetaminophen) 1 Each Tablet 1 Each PO Q6HRS PRN 7 07/31/21 Rx [Creon] 07/30/21 Reported Tylenol Extra Strength (Acetaminophen) 500 Mg Tablet 500 Mg PO BID 07/30/21 Reported Calcium (Calcium Carbonate) 500 Mg Tablet 500 Mg PO TID 07/30/21 Reported Protonix (Pantoprazole Sodium) 20 Mg Tablet.dr 20 Mg PO DAILY 07/30/21 Reported Folic Acid 0.4 Mg Tablet 0.4 Mg PO DAILY 07/30/21 Reported Vitamin D3 (Vitamin D) 125 Mcg Capsule 125 Mcg PO DAILY 07/30/21 Reported 5,000 UNITS = 125 MCG Methotrexate (Methotrexate Sodium) 2.5 Mg Tablet 6 Tab PO WEEKLY 07/30/21 Reported Ocuvite Tablet (Vit A,C & E/Lutein/Minerals) 1 Each Tablet 1 Tab PO DAILY 30 07/30/21 Reported Probiotic (Lactobacillus Combo No.10) 1 Each Capsule 1 Tab PO DAILY 30 07/30/21 Reported Lyrica (Pregabalin) 150 Mg Capsule 150 Mg PO TID 30 07/30/21 Reported Impression . 1. Acute hypoxic respiratory failure with progression of reticular nodular interstitial infiltrates along with increasing bronchiectasis. This is a patient who is immunocompromised. She is on methotrexate for rheumatoid arthritis. She is at risk for opportunistic and gram-negative infection such as Pseudomonas. Her CT chest presentation is also highly suspicious for Mycobacterium avium complex infection. She has reticular nodular interstitial infiltrates along with bronchiectasis. There has been progression since previous two CAT scans. 2. Acute kidney injury, resolved. 3. No significant tobaccoism. 4. Updated on COVID-19 vaccination. 5. Mild bronchospasm, likely secondary to infectious etiology. She does not have any significant tobaccoism. Resolved. Plan . RECOMMENDATIONS: 1. Discussed with the patient. She has been on cefepime since admission. 2. Chest x-ray done today showsno improvement in bilateral interstitial infiltrates. In fact there is slight increase infiltrates at the bases. Patient will benefit from diagnostic bronchoscopy to rule out Mycobacterium avium 3. Continue heparin for DVT prophylaxis. 4. DuoNebs. 5. Pulmicort. 6. Discussed with the patient all risk and benefits explained. We will schedule bronchoscopy Thursday. BEATRICE MERRITT MD Dec 20, 2021 09:45
[2021-12-20 11:00] VITALS: BP 112/52
[2021-12-20] MEDS: CALCIUM CARBONATE 500 MG TABLET PO SCH ×3 (11:00→20:12)
[2021-12-20] MEDS: AMIODARONE HCL 200 MG TABLET. PO SCH ×2 (11:09→20:12)
--- NOTE | 2021-12-20 12:49 | NUR ---
SS following up with discharge planning. SS reviewed pt chart and discussed with pt RN. Pt is currently requiring oxygen at two liters nasal canula. COVID19 negative. Pt on IV Cefepime. PT/OT recommended fpc unit. Pt accepted at [facility], ; fax [phone], pending insurance approval. SS will continue to follow for discharge planning.
[2021-12-20 14:37] VITALS: BP 125/54
[2021-12-20] MEDS ORDERED: MAGNESIUM CITRATE 296 ML SOLUTION. PO ONE (17:00)
--- NOTE | 2021-12-20 17:44 | PDOC ---
PROGRESS NOTES Date of Service DATE: 12/20/21 TIME: 17:42 Subjective Subjective Patient seen and examined She is feeling mildly better today. Objective Objective Vital Signs Date Time Temp Pulse Resp B/P (MAP) Pulse Ox O2 Delivery O2 Flow Rate FiO2 12/20/21 16:42 97 Nasal Cannula 3.0 12/20/21 14:37 97.9 81 17 125/54 (77) 97.9 Intake and Output 12/20/21 07:00 Intake Total 925 ml Output Total 1350 ml Balance -425 ml Intake Oral 925 ml Output Urine Total 1350 ml Physical Exam Abdomen: Normal bowel sounds Heart: Other (Irregularly irregular) General: mild distress Lungs: Other (Decreased breath sounds) Assessment Assessment Problems Medical Problems: (1) Healthcare-associated pneumonia Status: Acute (2) Paroxysmal atrial fibrillation Status: Acute (3) Respiratory failure with hypoxia Status: Acute 1. Acute respiratory failure secondary to PNA. Followed by the pulmonary service. Probable bronchoscopy Thursday. 2. New onset AFIB with RVR; Maintaining SR. EF and LV WM nml per TTE. On Cardizem and amiodarone. Eliquis for stroke prevention. 3. Hypertension; controlled 4. Hyperlipidemia 5. Diabetes, II 6. Hypothyroidism 7. RA 8. KENNEY; improved 9. Bacteremia; BC with 2/4 bottles GPC Comment Review of Relevant I have reviewed the following items kierra (where applicable) has been applied. Labs Laboratory Tests Test 12/18/21 20:10 12/19/21 04:10 12/19/21 08:05 12/19/21 11:44 Glucose (Fingerstick) 149 mg/dL (70-99) 118 mg/dL (70-99) 129 mg/dL (70-99) White Blood Count 8.4 x10^3/uL (4.0-11.0) Red Blood Count 4.69 x10^6/uL (3.50-5.40) Hemoglobin 11.8 g/dL (12.0-15.5) Hematocrit 38.3 % (36.0-47.0) Mean Corpuscular Volume 82 fL (79-100) Mean Corpuscular Hemoglobin 25 pg (25-35) Mean Corpuscular Hemoglobin Concent 31 g/dL (31-37) Red Cell Distribution Width 19.9 % (11.5-14.5) Platelet Count 197 x10^3/uL (140-400) Neutrophils (%) (Auto) 79 % (31-73) Lymphocytes (%) (Auto) 11 % (24-48) Monocytes (%) (Auto) 8 % (0-9) Eosinophils (%) (Auto) 1 % (0-3) Basophils (%) (Auto) 1 % (0-3) Neutrophils # (Auto) 6.7 x10^3/uL (1.8-7.7) Lymphocytes # (Auto) 0.9 x10^3/uL (1.0-4.8) Monocytes # (Auto) 0.7 x10^3/uL (0.0-1.1) Eosinophils # (Auto) 0.1 x10^3/uL (0.0-0.7) Basophils # (Auto) 0.0 x10^3/uL (0.0-0.2) Segmented Neutrophils % 56 % (35-66) Band Neutrophils % 18 % (0-9) Lymphocytes % 12 % (24-48) Monocytes % 9 % (0-10) Basophils % 2 % (0-3) Myelocytes % 3 % (0-0) Platelet Estimate Adequate (ADEQUATE) Polychromasia Slight Anisocytosis Slight Tear Drop Cells Occ Ovalocytes Present Sodium Level 147 mmol/L (136-145) Potassium Level 4.4 mmol/L (3.5-5.1) Chloride Level 105 mmol/L (98-107) Carbon Dioxide Level 37 mmol/L (21-32) Anion Gap 5 (6-14) Blood Urea Nitrogen 13 mg/dL (7-20) Creatinine 0.9 mg/dL (0.6-1.0) Estimated GFR (Cockcroft-Gault) 60.4 Glucose Level 136 mg/dL (70-99) Calcium Level 9.1 mg/dL (8.5-10.1) Test 12/19/21 14:02 12/19/21 16:25 12/19/21 20:20 12/20/21 07:40 Coronavirus (COVID-19)(PCR) Not detected (NOT DETECTD) Glucose (Fingerstick) 126 mg/dL (70-99) 136 mg/dL (70-99) 116 mg/dL (70-99) Test 12/20/21 10:48 12/20/21 15:55 Glucose (Fingerstick) 138 mg/dL (70-99) 115 mg/dL (70-99) Laboratory Tests Test 12/19/21 20:20 12/20/21 07:40 12/20/21 10:48 12/20/21 15:55 Glucose (Fingerstick) 136 mg/dL (70-99) 116 mg/dL (70-99) 138 mg/dL (70-99) 115 mg/dL (70-99) Microbiology 12/14/21 Urine Culture - Final, Complete 12/14/21 Blood Culture - Final, Complete NO GROWTH AFTER 5 DAYS Medications Current Medications Cefepime HCl (Maxipime) 2 gm 1X ONCE IVP Last administered on 12/14/21at 20:59; Start 12/14/21 at 20:00; Stop 12/14/21 at 20:01; Status DC Vancomycin HCl 1.5 gm/Sodium Chloride 500 ml @ 250 mls/hr 1X ONCE IV Last administered on 12/14/21at 21:00; Start 12/14/21 at 20:00; Stop 12/14/21 at 21:59; Status DC Sodium Chloride 1,000 ml @ 1,000 mls/hr 1X ONCE IV Last administered on 12/14/21at 20:55; Start 12/14/21 at 20:00; Stop 12/14/21 at 20:59; Status DC Iohexol (Omnipaque 350 Mg/ml) 80 ml 1X ONCE IV Last administered on 12/14/21at 20:30; Start 12/14/21 at 20:15; Stop 12/14/21 at 20:23; Status DC Info (CONTRAST GIVEN -- Rx MONITORING) 1 each PRN DAILY PRN MC SEE COMMENTS; Start 12/14/21 at 20:30; Stop 12/16/21 at 20:29; Status DC Diltiazem HCl (Cardizem Iv Push) 10 mg 1X ONCE IVP ; Start 12/14/21 at 22:00; Stop 12/14/21 at 22:01; Status DC Aspirin (Ecotrin) 325 mg 1X ONCE PO Last administered on 12/15/21at 00:39; Start 12/14/21 at 22:00; Stop 12/14/21 at 22:01; Status DC Acetaminophen (Tylenol) 650 mg PRN Q6HRS PRN PO MILD PAIN / TEMP > 100.3'F Last administered on 12/19/21at 11:45; Start 12/14/21 at 22:30 Fentanyl Citrate (Fentanyl 2ml Vial) 25 mcg PRN Q3HRS PRN IVP SEVERE PAIN 7-10; Start 12/14/21 at 22:30 Albuterol/ Ipratropium (Duoneb) 3 ml RTQID NEB Last administered on 12/20/21at 16:42; Start 12/15/21 at 08:00 Albuterol Sulfate (Ventolin Neb Soln) 2.5 mg PRN Q4HRS PRN NEB SHORTNESS OF BREATH; Start 12/14/21 at 22:30 Psyllium Hydrophilic Mucilloid (Metamucil Fiber Packet) 1 pkt QHS PO Last administered on 12/19/21at 21:11; Start 12/14/21 at 23:00 Budesonide (Pulmicort) 0.5 mg RTBID NEB Last administered on 12/17/21at 07:43; Start 12/15/21 at 08:00; Stop 12/17/21 at 13:02; Status DC Guaifenesin (Robitussin Dm) 10 ml PRN Q6HRS PRN PO COUGH Last administered on 12/18/21 09:25; Start 12/14/21 at 22:30 Olanzapine (ZyPREXA ZYDIS) 5 mg PRN BID PRN PO ANXIETY / AGITATION Last administered on 12/15/21at 19:59; Start 12/14/21 at 22:30 Ondansetron HCl (Zofran) 4 mg PRN Q4HRS PRN IVP NAUSEA/VOMITING 1ST CHOICE; Start 12/14/21 at 22:30 Tramadol HCl (Ultram) 50 mg PRN Q6HRS PRN PO MODERATE PAIN 4-6 Last administered on 12/20/21at 11:01; Start 12/14/21 at 22:30 Hydralazine HCl (Apresoline Inj) 10 mg PRN Q4HRS PRN IVP ELEVATED BP, SEE COMMENTS; Start 12/14/21 at 22:30 Heparin Sodium (Porcine) (Heparin Sodium) 5,000 unit Q8HRS SQ Last administered on 12/17/21at 06:00; Start 12/15/21 at 06:00; Stop 12/17/21 at 14:41; Status DC Metoprolol Tartrate (Lopressor Vial) 5 mg PRN Q4HRS PRN IVP SEE ADMIN INSTRUCTIONS Last administered on 12/17/21at 07:21; Start 12/15/21 at 01:30 Calcium Carbonate/ Glycine (Oscal) 500 mg TID PO Last administered on 12/20/21at 14:30; Start 12/15/21 at 14:00 Vitamin D (Vitamin D3) 5,000 unit DAILY PO Last administered on 12/20/21at 08:27; Start 12/16/21 at 09:00 Methotrexate (Rheumatrex) 15 mg WEEKLY PO ; Start 12/22/21 at 09:00 Pantoprazole Sodium (Protonix) 40 mg DAILYAC PO Last administered on 12/20/21at 08:27; Start 12/16/21 at 07:30 Pregabalin (Lyrica) 150 mg TID PO Last administered on 12/20/21at 14:31; Start 12/15/21 at 14:00 Cefepime HCl (Maxipime) 2 gm Q24H IVP Last administered on 12/19/21at 21:51; Start 12/15/21 at 21:00 Diltiazem HCl (Cardizem Iv Push) 10 mg 1X ONCE IVP Last administered on 12/16/21at 10:56; Start 12/16/21 at 11:00; Stop 12/16/21 at 11:01; Status DC Budesonide (Pulmicort) 0.5 mg RTBID NEB Last administered on 12/20/21at 09:05; Start 12/16/21 at 11:00 Insulin Human Lispro (HumaLOG) 0-9 UNITS TIDWMEALS SQ ; Start 12/16/21 at 12:00 Dextrose (Dextrose 50%-Water Syringe) 12.5 gm PRN Q15MIN PRN IV SEE COMMENTS; Start 12/16/21 at 11:30; Stop 12/18/21 at 00:23; Status DC Dextrose (Iv Dextrose 5%) 250 ml PRN Q15MIN PRN IV SEE COMMENTS; Start 12/16/21 at 11:30 Diltiazem HCl (Cardizem 24hr Cd) 120 mg DAILY PO Last administered on 12/20/21at 11:08; Start 12/16/21 at 17:00 Aspirin (Ecotrin) 81 mg DAILYWBKFT PO Last administered on 12/16/21at 17:11; Start 12/16/21 at 17:00; Stop 12/17/21 at 14:28; Status DC Perflutren Protein Type A Microsphe (Optison) 0.66 mg 1X ONCE IV ; Start 12/17/21 at 08:00; Stop 12/17/21 at 08:01; Status DC Digoxin (Lanoxin) 250 mcg 1X ONCE IV Last administered on 12/17/21at 07:18; Start 12/17/21 at 07:00; Stop 12/17/21 at 07:01; Status DC Empaglifozin (Jardiance) 25 mg DAILY PO Last administered on 12/20/21at 08:27; Start 12/17/21 at 14:00 Linagliptin (Tradjenta) 5 mg DAILY PO Last administered on 12/20/21at 08:28; Start 12/17/21 at 14:00 Amiodarone HCl (Cordarone) 200 mg BID PO Last administered on 12/20/21at 11:09; Start 12/17/21 at 15:00; Stop 12/23/21 at 21:01 Apixaban (Eliquis) 5 mg BID PO Last administered on 12/20/21at 08:28; Start 12/17/21 at 21:00 Amiodarone HCl (Cordarone) 200 mg DAILY PO ; Start 12/24/21 at 09:00 Heparin Sodium (Porcine) (Heparin Sodium) 5,000 unit Q8HRS SQ Last administered on 12/17/21at 15:23; Start 12/17/21 at 15:00; Stop 12/17/21 at 20:00; Status DC Perflutren Protein Type A Microsphe (Optison) 0.66 mg 1X ONCE IV ; Start 12/18/21 at 07:45; Stop 12/18/21 at 07:46; Status DC Magnesium Citrate (Citroma) 296 ml 1X ONCE PO ; Start 12/18/21 at 12:30; Stop 12/18/21 at 12:31; Status DC Polyethylene Glycol (miraLAX PACKET) 17 gm DAILY PO Last administered on 12/20/21at 08:28; Start 12/18/21 at 11:30 Perflutren Protein Type A Microsphe (Optison) 0.66 mg STK-MED ONCE IV ; Start 12/18/21 at 13:44; Stop 12/18/21 at 13:44; Status DC Magnesium Citrate (Citroma) 296 ml 1X ONCE PO Last administered on 12/20/21at 17:21; Start 12/20/21 at 17:00; Stop 12/20/21 at 17:01; Status DC Active Scripts Active Hydrocodone-Acetamin 5-325 mg (Hydrocodone/Acetaminophen) 1 Each Tablet 1 Each PO Q6HRS PRN 7 Days Reported Ocuvite Lutein 25-5 mg Softgel (Lutein/Zeaxanthin) 1 Each Capsule 1 Cap PO DAILY 30 Days Acidophilus (Lactobacillus Acidophilus) 1 Each Tab.chew 1 Each PO DAILY [Creon] Tylenol Extra Strength (Acetaminophen) 500 Mg Tablet 500 Mg PO BID Calcium (Calcium Carbonate) 500 Mg Tablet 500 Mg PO TID Protonix (Pantoprazole Sodium) 20 Mg Tablet.dr 20 Mg PO DAILY Folic Acid 0.4 Mg Tablet 0.4 Mg PO DAILY Vitamin D3 (Vitamin D) 125 Mcg Capsule 125 Mcg PO DAILY 5,000 UNITS = 125 MCG Methotrexate (Methotrexate Sodium) 2.5 Mg Tablet 6 Tab PO WEEKLY Ocuvite Tablet (Vit A,C & E/Lutein/Minerals) 1 Each Tablet 1 Tab PO DAILY 30 Days Probiotic (Lactobacillus Combo No.10) 1 Each Capsule 1 Tab PO DAILY 30 Days Lyrica (Pregabalin) 150 Mg Capsule 150 Mg PO TID 30 Days Vitals/I & O Vital Sign - Last 24 Hours 12/19/21 12/19/21 12/19/21 12/19/21 19:00 20:00 20:26 21:11 Temp 98.0 98.0 Pulse 73 73 Resp 18 B/P (MAP) 123/42 (69) 123/42 Pulse Ox 96 95 O2 Delivery Nasal Cannula Nasal Cannula Nasal Cannula O2 Flow Rate 2.0 3.0 3.0 12/19/21 12/20/21 12/20/21 12/20/21 22:46 02:25 03:03 07:00 Temp 97.8 98.0 97.9 97.8 98.0 97.9 Pulse 73 70 66 Resp 18 18 18 B/P (MAP) 116/44 (68) 108/47 (67) 125/45 (71) Pulse Ox 97 96 96 96 O2 Delivery Nasal Cannula Nasal Cannula Nasal Cannula Nasal Cannula O2 Flow Rate 2.0 2.0 2.0 2.0 12/20/21 12/20/21 12/20/21 12/20/21 08:00 09:05 09:09 11:00 Temp 97.8 97.8 Pulse 69 Resp 17 B/P (MAP) 112/52 (72) Pulse Ox 96 96 94 O2 Delivery Nasal Cannula Nasal Cannula Nasal Cannula Nasal Cannula O2 Flow Rate 2.0 3.0 3.0 2.0 12/20/21 12/20/21 12/20/21 12/20/21 11:01 11:08 11:09 11:31 Pulse 71 71 Resp 18 18 B/P (MAP) 112/52 112/52 12/20/21 12/20/21 12/20/21 13:01 14:37 16:42 Temp 97.9 97.9 Pulse 81 Resp 17 B/P (MAP) 125/54 (77) Pulse Ox 98 94 97 O2 Delivery Nasal Cannula Nasal Cannula Nasal Cannula O2 Flow Rate 3.0 2.0 3.0 Intake and Output 12/19/21 12/19/21 12/20/21 15:00 23:00 07:00 Intake Total 575 ml 350 ml Output Total 550 ml 800 ml Balance 575 ml -200 ml -800 ml Justifications for Admission Other Justification WM HALL MD Dec 20, 2021 17:44
[2021-12-20 19:00] VITALS: BP 116/56
[2021-12-20] MEDS: CEFEPIME HCL IV Push 2 GM VIAL. IVP SCH (20:11)
[2021-12-20] MEDS: PSYLLIUM HUSK (SUGAR FREE) 1 PKT PACKET PO SCH (20:12)
[2021-12-20 22:30] VITALS: BP 118/47
[2021-12-21 02:38] VITALS: BP 117/51
[2021-12-21] MEDS: PANTOPRAZOLE 40 MG TABLET.DR. PO SCH (05:14)
[2021-12-21 07:00] VITALS: BP 154/60
[2021-12-21] MEDS: INSULIN LISPRO 300 UNITS/3 ML VIAL. SQ SCH ×3 (08:00→16:38)
[2021-12-21] MEDS: IPRATRPIUM/ALBUTEROL 0.5/2.5MG 3 ML NEBU. NEB SCH ×4 (08:08→20:44)
[2021-12-21] MEDS: BUDESONIDE 0.5 MG/2 ML NEBU. NEB SCH ×2 (08:14→20:44)
--- NOTE | 2021-12-21 08:14 | PDOC ---
PULMONARY PROGRESS NOTES DATE: 12/21/21 TIME: 08:13 Subjective tired No significant cough or shortness of breath. Vitals Vital Signs Date Time Temp Pulse Resp B/P (MAP) Pulse Ox O2 Delivery O2 Flow Rate FiO2 12/21/21 08:12 95 Nasal Cannula 3.0 12/21/21 07:00 97.9 71 18 154/60 (91) 97.9 ROS: No Nausea General: Alert, No acute distress HEENT: Other (nc at perrl ) Lungs: Crackles Cardiovascular: S1, S2 Abdomen: Soft Neuro Exam: Alert Extremities: No Edema Skin: Warm Labs Laboratory Tests Test 12/19/21 11:44 12/19/21 14:02 12/19/21 16:25 12/19/21 20:20 Glucose (Fingerstick) 129 mg/dL (70-99) 126 mg/dL (70-99) 136 mg/dL (70-99) Coronavirus (COVID-19)(PCR) Not detected (NOT DETECTD) Test 12/20/21 07:40 12/20/21 10:48 12/20/21 15:55 12/20/21 20:04 Glucose (Fingerstick) 116 mg/dL (70-99) 138 mg/dL (70-99) 115 mg/dL (70-99) 124 mg/dL (70-99) Test 12/21/21 07:26 Glucose (Fingerstick) 143 mg/dL (70-99) Laboratory Tests Test 12/20/21 10:48 12/20/21 15:55 12/20/21 20:04 12/21/21 07:26 Glucose (Fingerstick) 138 mg/dL (70-99) 115 mg/dL (70-99) 124 mg/dL (70-99) 143 mg/dL (70-99) Medications Active Scripts Medications Dose Route/Sig Max Daily Dose Days Date Category Dose Instructions Ocuvite Lutein 25-5 mg Softgel (Lutein/Zeaxanthin) 1 Each Capsule 1 Cap PO DAILY 30 12/15/21 Reported Acidophilus (Lactobacillus Acidophilus) 1 Each Tab.chew 1 Each PO DAILY 12/15/21 Reported Hydrocodone-Acetamin 5-325 mg (Hydrocodone/Acetaminophen) 1 Each Tablet 1 Each PO Q6HRS PRN 7 07/31/21 Rx [Creon] 07/30/21 Reported Tylenol Extra Strength (Acetaminophen) 500 Mg Tablet 500 Mg PO BID 07/30/21 Reported Calcium (Calcium Carbonate) 500 Mg Tablet 500 Mg PO TID 07/30/21 Reported Protonix (Pantoprazole Sodium) 20 Mg Tablet.dr 20 Mg PO DAILY 07/30/21 Reported Folic Acid 0.4 Mg Tablet 0.4 Mg PO DAILY 07/30/21 Reported Vitamin D3 (Vitamin D) 125 Mcg Capsule 125 Mcg PO DAILY 07/30/21 Reported 5,000 UNITS = 125 MCG Methotrexate (Methotrexate Sodium) 2.5 Mg Tablet 6 Tab PO WEEKLY 07/30/21 Reported Ocuvite Tablet (Vit A,C & E/Lutein/Minerals) 1 Each Tablet 1 Tab PO DAILY 30 07/30/21 Reported Probiotic (Lactobacillus Combo No.10) 1 Each Capsule 1 Tab PO DAILY 30 07/30/21 Reported Lyrica (Pregabalin) 150 Mg Capsule 150 Mg PO TID 30 07/30/21 Reported Impression . 1. Acute hypoxic respiratory failure with progression of reticular nodular interstitial infiltrates along with increasing bronchiectasis. This is a patient who is immunocompromised. She is on methotrexate for rheumatoid arthritis. She is at risk for opportunistic and gram-negative infection such as Pseudomonas. Her CT chest presentation is also highly suspicious for Mycobacterium avium complex infection. She has reticular nodular interstitial infiltrates along with bronchiectasis. There has been progression since previous two CAT scans. 2. Acute kidney injury, resolved. 3. No significant tobaccoism. 4. Updated on COVID-19 vaccination. 5. Mild bronchospasm, likely secondary to infectious etiology. She does not have any significant tobaccoism. Resolved. Plan . RECOMMENDATIONS: 1. on cefepime 2. Chest x-ray done 12/20 slight increase infiltrates at the bases. Patient will benefit from diagnostic bronchoscopy to rule out Mycobacterium avium 3. Continue heparin for DVT prophylaxis. 4. BD, DuoNebs. 5. Pulmicort. 6. bronch on thursday discussed w pt MAXI Aguero MD Dec 21, 2021 08:14
[2021-12-21] MEDS: EMPAGLIFLOZIN 25 MG TABLET. PO SCH (08:40)
[2021-12-21] MEDS: APIXABAN 5 MG TABLET. PO SCH ×2 (08:40→20:17)
[2021-12-21] MEDS: CHOLECALCIFEROL (VITAMIN D3) 5,000 UNIT CAPSULE PO SCH (08:40)
[2021-12-21] MEDS: CALCIUM CARBONATE 500 MG TABLET PO SCH ×3 (08:40→20:18)
[2021-12-21] MEDS: LINAGLIPTIN 5 MG TABLET PO SCH (08:40)
[2021-12-21] MEDS: PREGABALIN 75 MG CAPSULE PO SCH ×3 (08:41→20:17)
[2021-12-21] MEDS: AMIODARONE HCL 200 MG TABLET. PO SCH ×2 (08:41→20:17)
[2021-12-21] MEDS: POLYETHYLENE GLYCOL 3350 17 GM PACKET. PO SCH (08:42)
[2021-12-21 10:55] VITALS: BP 119/59
--- NOTE | 2021-12-21 11:09 | PDOC ---
PROGRESS NOTES Date of Service: DATE: 12/21/21 TIME: 11:09 Subjective Subjective c/o VILLALBA, fatigue Objective Objective Vital Signs Date Time Temp Pulse Resp B/P (MAP) Pulse Ox O2 Delivery O2 Flow Rate FiO2 12/21/21 10:55 98.1 68 18 119/59 (79) 96 Nasal Cannula 2.0 98.1 Intake and Output 12/21/21 07:00 Intake Total 1050 ml Output Total 1750 ml Balance -700 ml Intake Oral 1050 ml Output Urine Total 1750 ml Physical Exam Abdomen: Normal bowel sounds Heart: Other (Irregularly irregular) Extremities: No edema, Normal pulses General: mild distress HEENT: Atraumatic, Mucous membr. moist/pink Lungs: Other (Decreased breath sounds) MUSCULOSKELETAL: Osteoarthritic changes both hands Neuro: Normal speech, Normal tone Psych/Mental Status: Mental status NL, Mood NL Skin: No significant lesion Assessment Assessment 1. Acute respiratory failure secondary to PNA 2. New onset AFIB with RVR; Maintaining SR. EF and LV WM nml per TTE 3. Hypertension; controlled 4. Hyperlipidemia 5. Diabetes, II 6. Hypothyroidism 7. RA 8. KENNEY; much improved 9. Bacteremia; BC with 2/4 bottles [facility] Recommendations Cardizem for rate control Amiodarone for rhythm maintenance. Eliquis for stroke prophylaxis Consider outpatient ischemic evaluation Supportive care Plan Plan of Care Problems Medical Problems: (1) Healthcare-associated pneumonia Status: Acute (2) Paroxysmal atrial fibrillation Status: Acute (3) Respiratory failure with hypoxia Status: Acute Comment Review of Relevant I have reviewed the following items kierra (where applicable) has been applied. Labs Laboratory Tests Test 12/20/21 15:55 12/20/21 20:04 12/21/21 07:26 Glucose (Fingerstick) 115 mg/dL (70-99) 124 mg/dL (70-99) 143 mg/dL (70-99) Microbiology 12/14/21 Urine Culture - Final, Complete 12/14/21 Blood Culture - Final, Complete NO GROWTH AFTER 5 DAYS Medications Current Medications Amiodarone HCl (Cordarone) 200 mg DAILY PO ; Start 12/24/21 at 09:00 Fentanyl Citrate (Fentanyl 2ml Vial) 25 mcg PRN Q5MIN PRN IVP MILD PAIN 1-3; Start 12/23/21 at 06:00; Stop 12/24/21 at 05:59 Fentanyl Citrate (Fentanyl 2ml Vial) 50 mcg PRN Q5MIN PRN IVP MODERATE PAIN 4- 6; Start 12/23/21 at 06:00; Stop 12/24/21 at 05:59 Hydromorphone HCl (Dilaudid) 0.5 mg PRN Q10MIN PRN IVP SEVERE PAIN 7-10, 2nd CHOICE; Start 12/23/21 at 06:00; Stop 12/24/21 at 05:59 Magnesium Citrate (Citroma) 296 ml 1X ONCE PO Last administered on 12/20/21at 17:21; Start 12/20/21 at 17:00; Stop 12/20/21 at 17:01; Status DC Methotrexate (Rheumatrex) 15 mg WEEKLY PO ; Start 12/22/21 at 09:00 Morphine Sulfate (Morphine Sulfate) 1 mg PRN Q10MIN PRN IVP SEVERE PAIN 7-10; Start 12/23/21 at 06:00; Stop 12/24/21 at 05:59 Prochlorperazine Edisylate (Compazine) 5 mg PACU PRN PRN IVP NAUSEA, MRX1; St art 12/23/21 at 06:00; Stop 12/24/21 at 05:59 Ringer's Solution 1,000 ml @ 30 mls/hr Q24H IV ; Start 12/23/21 at 06:00; Stop 12/23/21 at 17:59 Vitals/I & O Vital Sign - Last 24 Hours 12/20/21 12/20/21 12/20/21 12/20/21 11:31 13:01 14:37 16:42 Temp 97.9 97.9 Pulse 81 Resp 18 17 B/P (MAP) 125/54 (77) Pulse Ox 98 94 97 O2 Delivery Nasal Cannula Nasal Cannula Nasal Cannula O2 Flow Rate 3.0 2.0 3.0 12/20/21 12/20/21 12/20/21 12/20/21 19:00 19:36 20:00 20:12 Temp 98.1 98.1 Pulse 75 75 Resp 16 B/P (MAP) 116/56 (76) 116/56 Pulse Ox 96 8 O2 Delivery Nasal Cannula Nasal Cannula Nasal Cannula O2 Flow Rate 2.0 3.0 2.0 12/20/21 12/21/21 12/21/21 12/21/21 22:30 02:38 07:00 08:00 Temp 97.8 97.8 97.9 97.8 97.8 97.9 Pulse 78 74 71 Resp 18 18 18 B/P (MAP) 118/47 (70) 117/51 (73) 154/60 (91) Pulse Ox 98 97 91 O2 Delivery Nasal Cannula Nasal Cannula Nasal Cannula Nasal Cannula O2 Flow Rate 2.0 2.0 2.0 2.0 12/21/21 12/21/21 12/21/21 12/21/21 08:12 08:13 08:41 08:41 Pulse 71 71 B/P (MAP) 154/60 154/60 Pulse Ox 95 95 O2 Delivery Nasal Cannula Nasal Cannula O2 Flow Rate 3.0 3.0 12/21/21 10:55 Temp 98.1 98.1 Pulse 68 Resp 18 B/P (MAP) 119/59 (79) Pulse Ox 96 O2 Delivery Nasal Cannula O2 Flow Rate 2.0 Intake and Output 12/20/21 12/20/21 12/21/21 15:00 23:00 07:00 Intake Total 600 ml 450 ml 0 ml Output Total 700 ml 250 ml 800 ml Balance -100 ml 200 ml -800 ml ELAN CULVER MD Dec 21, 2021 11:09
--- NOTE | 2021-12-21 12:41 | PDOC ---
[facility] PROGRESS NOTE Date of Service DOS: DATE: 12/21/21 TIME: 12:41 Chief Complaint Chief Complaint Acute respiratory failure with hypoxia - due to bronchiectasis/HCAP. Will wean O2 as tolerated. Consult pulmonology who she sees outpatient. Possible rheumatoid lung vs MAC? Gram positive blood cultures - will cont cefepime, f/u results staph hominis likely is a contaminant but patient is immunosuppressed we will continue cefe pime Abnormal CXR - this is Healthcare-associated pneumonia given assisted living facility setting. Given bronciectasis will treat for pseudomonas, gram negative. 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 Will have pulm assess for possible lung tox given abnormal CT DM2 - A1c 8.1, will initiate jardiance given cardiac arrhythmia and diastolic CHF and tradjenta for oral hypoglycemic agents FEN - Cardiac diet PPX - lovenox FULL CODE DIspo - inpatient History of Present Illness History of Present Illness Ms Weber is a 81 year old female w/ PMHx HTN, GERD, Rheumatoid arthritis, DM2 with neuropathy who presents with report of greater than 2-week history of cough with purulent sputum, shortness of breath. She denies nausea, vomiting, diarrhea. She denies abdominal pain. He does report some chest pressure intermittently for the past 2 weeks as well. She has attributed the chest pressure to coughing. She denies hemoptysis. She is currently residing in an assisted living facility, and she reports that multiple staff members and other patients living that have had similar symptoms. She has been fully vaccinated against COVID-19, including booster, she has had an influenza vaccine as well. She has not recently been hospitalized, denies recent travel, denies recent surgery. She does have a chronically swollen right lower extremity, which is unchanged. She has chronic lower extremity and foot pain secondary to diabetic neuropathy. She is hypoxic on room air, she does not normally require supplemental oxygen. She quit smoking many decades ago. She has no known history of COPD or pulmonary disease. She did have outpatient eval by pulm and CT chest outpatient, she doesn't remember the outcome EKG #1: 1903. Sinus, Rate is 91 bpm, left axis, no ST elevation or TWI EKG #2: 2329. Atrial fibrillation with RVR, Rate is 132 bpm, left axis, no ST elevation or TWI Chest radiograph with bibasilar airspace disease. Given her symptoms and elevated D-dimer she underwent CT pulmonary angiogram revealing no pulmonary embolism but did reveal dilated pulmonary artery trunk suggesting pulmonary artery hypertension as well as diffuse scattered bilateral groundglass consolidative opacities with tree-in-bud appearance and hepatic steatosis incidentally Labs with WBC 12.7, Hb 11.3, platelets 200, NA 139, K3.9, BUN 31, CR 1.4, glucose 139, albumin 2.9 otherwise LFTs within normal laboratory limits, high- sensitivity troponin is 30, NT proBNP is 847, urinalysis with moderate leuk esterase, rapid influenza negative, rapid COVID-19 negative, D-dimer 1.35 12/16: Blood cultures resulted +2 bottles with gram-positive cocci. Discussed with pulmonology bronchiectatic changes and chronic methotrexate are concerning for possible MAC. We will continue on cefepime but ultimately patient will likely need a bronchoscopy. Glucose fasting has been in the 150s not on steroid treatment will check A1c and place on insulin as needed. Also she is back in atrial fibrillation. Will have consultation with cardiology 12/17: Blood cultures with staph hominis. Still with significant bronchospasm. She symptomatically feels very weak but is willing to try to get out of bed toda y. Atrial fibrillation relatively rate controlled, may need to change to Cardizem if bronchospasm continues 12/18: Severe weakness of bilateral lower extremities and pain on standing cannot stand without 2 person assist. From a respiratory standpoint she still feels very short of breath with cough does not feel she is making much improvement. Still with bronchospasms. 12/19: Breathing is improved somewhat but she still feels extremely weak. Bilateral lower extremity pain is chronic present. No chest pain today. Remains in sinus rhythm. Therapy has recommended skilled. Discussed with pulmonology may be able to transition to oral antibiotics the next 24 to 48 hours and will get repeat chest x-ray as an underlying concern for MAC is present and would potentially need bronchoscopy. 12/20: Still with significant dyspnea and wheezing. Discussed with cardiology and based on my interpretation chest radiograph worse at the bases. Plan for consideration of bronchoscopy per discussion with pulmonology on 12/23/2021 we will continue cefepime IV and continue rehab modalities that she is still very weak and had 2 person assist even to get up to the chair that is right next to her bed. 12/21: Still without a bowel movement. Still with dyspnea on exertion requiring O2. Continue on cefepime blood cultures positive. Vitals/I&O Vitals/I&O: Vital Signs Date Time Temp Pulse Resp B/P (MAP) Pulse Ox O2 Delivery O2 Flow Rate FiO2 12/21/21 11:48 95 Nasal Cannula 3.0 12/21/21 10:55 98.1 68 18 119/59 (79) 98.1 I & O 12/20/21 12/20/21 12/21/21 15:00 23:00 07:00 Intake Total 600 ml 450 ml 0 ml Output Total 700 ml 250 ml 800 ml Balance -100 ml 200 ml -800 ml Physical Exam General: mild distress Heart: Other (Irregularly irregular) Lungs: Crackles Abdomen: Normal bowel sounds Extremities: No edema, Normal pulses Skin: No significant lesion Labs Labs: Laboratory Tests Test 12/20/21 15:55 12/20/21 20:04 12/21/21 07:26 12/21/21 11:10 Glucose (Fingerstick) 115 mg/dL (70-99) 124 mg/dL (70-99) 143 mg/dL (70-99) 120 mg/dL (70-99) Assessment and Plan Assessmemt and Plan Problems Medical Problems: (1) Healthcare-associated pneumonia Status: Acute (2) Paroxysmal atrial fibrillation Status: Acute (3) Respiratory failure with hypoxia Status: Acute Comment Review of Relevant I have reviewed the following items kierra (where applicable) has been applied. Medications: Current Medications Medications (Trade) Dose Ordered Sig/Juany Route PRN Reason Start Time Stop Time Status Last Admin Dose Admin Magnesium Citrate (Citroma) 296 ml 1X ONCE PO 12/20/21 17:00 12/20/21 17:01 DC 12/20/21 17:21 Justifications for Admission Other Justification NEELA AYALA MD Dec 21, 2021 12:41
[2021-12-21 15:00] VITALS: BP 115/60
[2021-12-21] MEDS: CLOTRIMAZOLE/BETAMETH 1%-0.05% TOPICAL CREAM 15GM TUBE. TP SCH ×2 (15:15→20:18)
[2021-12-21 19:00] VITALS: BP 116/42
[2021-12-21] MEDS: CEFEPIME HCL IV Push 2 GM VIAL. IVP SCH (20:16)
[2021-12-21] MEDS: PSYLLIUM HUSK (SUGAR FREE) 1 PKT PACKET PO SCH (20:18)
[2021-12-21] MEDS ORDERED: hydrOXYzine 10 MG TABLET PO PRN (21:00)
[2021-12-21 23:00] VITALS: BP 122/45
[2021-12-22] VITALS (7 sets, daily range): BP systolic 105–139; BP diastolic 48–59
[2021-12-22] MEDS: PANTOPRAZOLE 40 MG TABLET.DR. PO SCH (05:48)
[2021-12-22] MEDS: IPRATRPIUM/ALBUTEROL 0.5/2.5MG 3 ML NEBU. NEB SCH ×4 (07:06→20:00)
[2021-12-22] MEDS: INSULIN LISPRO 300 UNITS/3 ML VIAL. SQ SCH ×3 (08:00→16:56)
--- NOTE | 2021-12-22 08:11 | PDOC ---
PULMONARY PROGRESS NOTES DATE: 12/22/21 TIME: 08:10 Subjective tired has occ cough Vitals Vital Signs Date Time Temp Pulse Resp B/P (MAP) Pulse Ox O2 Delivery O2 Flow Rate FiO2 12/22/21 07:09 93 Nasal Cannula 3.0 12/22/21 03:00 98.5 69 18 112/48 (69) 98.5 ROS: No Nausea General: Alert, No acute distress HEENT: Other (nc at perrl ) Lungs: Crackles Cardiovascular: S1, S2 Abdomen: Soft Neuro Exam: Alert Extremities: No Edema Skin: Warm Labs Laboratory Tests Test 12/20/21 10:48 12/20/21 15:55 12/20/21 20:04 12/21/21 07:26 Glucose (Fingerstick) 138 mg/dL (70-99) 115 mg/dL (70-99) 124 mg/dL (70-99) 143 mg/dL (70-99) Test 12/21/21 11:10 12/21/21 15:56 12/21/21 20:43 12/22/21 07:31 Glucose (Fingerstick) 120 mg/dL (70-99) 160 mg/dL (70-99) 137 mg/dL (70-99) 121 mg/dL (70-99) Laboratory Tests Test 12/21/21 11:10 12/21/21 15:56 12/21/21 20:43 12/22/21 07:31 Glucose (Fingerstick) 120 mg/dL (70-99) 160 mg/dL (70-99) 137 mg/dL (70-99) 121 mg/dL (70-99) Medications Active Scripts Medications Dose Route/Sig Max Daily Dose Days Date Category Dose Instructions Ocuvite Lutein 25-5 mg Softgel (Lutein/Zeaxanthin) 1 Each Capsule 1 Cap PO DAILY 30 12/15/21 Reported Acidophilus (Lactobacillus Acidophilus) 1 Each Tab.chew 1 Each PO DAILY 12/15/21 Reported Hydrocodone-Acetamin 5-325 mg (Hydrocodone/Acetaminophen) 1 Each Tablet 1 Each PO Q6HRS PRN 7 07/31/21 Rx [Creon] 07/30/21 Reported Tylenol Extra Strength (Acetaminophen) 500 Mg Tablet 500 Mg PO BID 07/30/21 Reported Calcium (Calcium Carbonate) 500 Mg Tablet 500 Mg PO TID 07/30/21 Reported Protonix (Pantoprazole Sodium) 20 Mg Tablet.dr 20 Mg PO DAILY 07/30/21 Reported Folic Acid 0.4 Mg Tablet 0.4 Mg PO DAILY 07/30/21 Reported Vitamin D3 (Vitamin D) 125 Mcg Capsule 125 Mcg PO DAILY 07/30/21 Reported 5,000 UNITS = 125 MCG Methotrexate (Methotrexate Sodium) 2.5 Mg Tablet 6 Tab PO WEEKLY 07/30/21 Reported Ocuvite Tablet (Vit A,C & E/Lutein/Minerals) 1 Each Tablet 1 Tab PO DAILY 30 07/30/21 Reported Probiotic (Lactobacillus Combo No.10) 1 Each Capsule 1 Tab PO DAILY 30 07/30/21 Reported Lyrica (Pregabalin) 150 Mg Capsule 150 Mg PO TID 30 07/30/21 Reported Impression . 1. Acute hypoxic respiratory failure with progression of reticular nodular interstitial infiltrates along with increasing bronchiectasis. This is a patient who is immunocompromised. She is on methotrexate for rheumatoid arthritis. She is at risk for opportunistic and gram-negative infection such as Pseudomonas. Her CT chest presentation is also highly suspicious for Mycobacterium avium complex infection. She has reticular nodular interstitial infiltrates along with bronchiectasis. There has been progression since previous two CAT scans. 2. Acute kidney injury, resolved. 3. No significant tobaccoism. 4. Updated on COVID-19 vaccination. 5. Mild bronchospasm, likely secondary to infectious etiology. She does not have any significant tobaccoism. Resolved. Plan . 12/22 1. bronch in am npo after midnight discussed w pt and rn 2. Chest x-ray done 12/20 slight increase infiltrates at the bases. Patient will benefit from diagnostic bronchoscopy to rule out Mycobacterium avium 3. Continue heparin for DVT prophylaxis. 4. BD, DuoNebs. 5. Pulmicort. 6. on cefepime discussed w pt MAXI Aguero MD Dec 22, 2021 08:11
--- NOTE | 2021-12-22 08:20 | PDOC ---
PROGRESS NOTES Date of Service: DATE: 12/22/21 TIME: 08:20 Subjective Subjective c/o dyspnea Objective Objective Vital Signs Date Time Temp Pulse Resp B/P (MAP) Pulse Ox O2 Delivery O2 Flow Rate FiO2 12/22/21 07:09 93 Nasal Cannula 3.0 12/22/21 03:00 98.5 69 18 112/48 (69) 98.5 Intake and Output 12/22/21 07:00 Intake Total 1000 ml Output Total 926 ml Balance 74 ml Intake Oral 1000 ml Output Urine Total 925 ml Stool Total 1 ml # Voids 1 Physical Exam Abdomen: Normal bowel sounds Heart: Other (Irregularly irregular) Extremities: No edema, Normal pulses General: mild distress HEENT: Atraumatic, Mucous membr. moist/pink Lungs: Other (Decreased breath sounds) MUSCULOSKELETAL: Osteoarthritic changes both hands Neuro: Normal speech, Normal tone Psych/Mental Status: Mental status NL, Mood NL Skin: No significant lesion Assessment Assessment 1. Acute respiratory failure secondary to PNA, bronchiectasis: Pulmonary team following 2. New onset AFIB with RVR; Maintaining SR. EF and LV WM nml per TTE 3. Hypertension; controlled 4. Hyperlipidemia 5. Diabetes, II 6. Hypothyroidism 7. RA 8. KENNEY; much improved 9. Bacteremia; BC with 2/4 bottles [facility] Recommendations Cardizem for rate control Amiodarone for rhythm maintenance. Eliquis for stroke prophylaxis Consider outpatient ischemic evaluation Plan Plan of Care Problems Medical Problems: (1) Healthcare-associated pneumonia Status: Acute (2) Paroxysmal atrial fibrillation Status: Acute (3) Respiratory failure with hypoxia Status: Acute Comment Review of Relevant I have reviewed the following items ikerra (where applicable) has been applied. Labs Laboratory Tests Test 12/21/21 11:10 12/21/21 15:56 12/21/21 20:43 12/22/21 07:31 Glucose (Fingerstick) 120 mg/dL (70-99) 160 mg/dL (70-99) 137 mg/dL (70-99) 121 mg/dL (70-99) Microbiology 12/14/21 Urine Culture - Final, Complete 12/14/21 Blood Culture - Final, Complete NO GROWTH AFTER 5 DAYS Medications Current Medications Amiodarone HCl (Cordarone) 200 mg DAILY PO ; Start 12/24/21 at 09:00 Betamethasone/ Clotrimazole (Lotrisone) 1 julianne BID TP Last administered on 12/21/21at 20:18; Start 12/21/21 at 15:15 Fentanyl Citrate (Fentanyl 2ml Vial) 25 mcg PRN Q5MIN PRN IVP MILD PAIN 1-3; Start 12/23/21 at 06:00; Stop 12/24/21 at 05:59 Fentanyl Citrate (Fentanyl 2ml Vial) 50 mcg PRN Q5MIN PRN IVP MODERATE PAIN 4- 6; Start 12/23/21 at 06:00; Stop 12/24/21 at 05:59 Hydromorphone HCl (Dilaudid) 0.5 mg PRN Q10MIN PRN IVP SEVERE PAIN 7-10, 2nd CHOICE; Start 12/23/21 at 06:00; Stop 12/24/21 at 05:59 Hydroxyzine HCl (Atarax) 10 mg PRN Q6HRS PRN PO ITCHING Last administered on 12/21/21at 21:07; Start 12/21/21 at 21:00 Methotrexate (Rheumatrex) 15 mg WEEKLY PO ; Start 12/22/21 at 09:00 Morphine Sulfate (Morphine Sulfate) 1 mg PRN Q10MIN PRN IVP SEVERE PAIN 7-10; Start 12/23/21 at 06:00; Stop 12/24/21 at 05:59 Prochlorperazine Edisylate (Compazine) 5 mg PACU PRN PRN IVP NAUSEA, MRX1; Start 12/23/21 at 06:00; Stop 12/24/21 at 05:59 Ringer's Solution 1,000 ml @ 30 mls/hr Q24H IV ; Start 12/23/21 at 06:00; Stop 12/23/21 at 17:59 Vitals/I & O Vital Sign - Last 24 Hours 12/21/21 12/21/21 12/21/21 12/21/21 08:41 08:41 10:55 11:48 Temp 98.1 98.1 Pulse 71 71 68 Resp 18 B/P (MAP) 154/60 154/60 119/59 (79) Pulse Ox 96 95 O2 Delivery Nasal Cannula Nasal Cannula O2 Flow Rate 2.0 3.0 12/21/21 12/21/21 12/21/21 12/21/21 15:00 15:50 19:00 20:00 Temp 98.0 99.1 98.0 99.1 Pulse 79 Resp 17 18 B/P (MAP) 115/60 (78) 116/42 (66) Pulse Ox 98 95 97 O2 Delivery Nasal Cannula Nasal Cannula Nasal Cannula Nasal Cannula O2 Flow Rate 2.0 3.0 2.0 2.0 12/21/21 12/21/21 12/21/21 12/22/21 20:17 20:45 23:00 03:00 Temp 98.1 98.5 98.1 98.5 Pulse 82 81 69 Resp 18 18 B/P (MAP) 116/60 122/45 (70) 112/48 (69) Pulse Ox 95 93 97 O2 Delivery Nasal Cannula Nasal Cannula Nasal Cannula O2 Flow Rate 3.0 2.0 2.0 12/22/21 07:09 Pulse Ox 93 O2 Delivery Nasal Cannula O2 Flow Rate 3.0 Intake and Output 12/21/21 12/21/21 12/22/21 15:00 23:00 07:00 Intake Total 300 ml 500 ml 200 ml Output Total 325 ml 301 ml 300 ml Balance -25 ml 199 ml -100 ml ELAN CULVER MD Dec 22, 2021 08:20
[2021-12-22] MEDS ORDERED: METHOTREXATE SODIUM 2.5 MG TABLET PO SCH (09:00)
[2021-12-22] MEDS: CALCIUM CARBONATE 500 MG TABLET PO SCH ×3 (09:01→22:12)
[2021-12-22] MEDS: EMPAGLIFLOZIN 25 MG TABLET. PO SCH (09:01)
[2021-12-22] MEDS: APIXABAN 5 MG TABLET. PO SCH ×2 (09:01→22:13)
[2021-12-22] MEDS: AMIODARONE HCL 200 MG TABLET. PO SCH ×2 (09:01→22:14)
[2021-12-22] MEDS: POLYETHYLENE GLYCOL 3350 17 GM PACKET. PO SCH (09:01)
[2021-12-22] MEDS: LINAGLIPTIN 5 MG TABLET PO SCH (09:01)
[2021-12-22] MEDS: CHOLECALCIFEROL (VITAMIN D3) 5,000 UNIT CAPSULE PO SCH (09:01)
[2021-12-22] MEDS: PREGABALIN 75 MG CAPSULE PO SCH ×3 (09:02→22:13)
[2021-12-22] MEDS: CLOTRIMAZOLE/BETAMETH 1%-0.05% TOPICAL CREAM 15GM TUBE. TP SCH ×2 (09:03→22:36)
--- NOTE | 2021-12-22 09:14 | NUR ---
Pt stated they only take 10mg of Methotrexate at home and refused the 15 Mg so the home dose of the med was given.
[2021-12-22] MEDS: BUDESONIDE 0.5 MG/2 ML NEBU. NEB SCH ×2 (11:18→20:00)
--- NOTE | 2021-12-22 12:39 | PDOC ---
[facility] PROGRESS NOTE Date of Service DOS: DATE: 12/22/21 TIME: 12:37 Chief Complaint Chief Complaint Acute respiratory failure with hypoxia - due to bronchiectasis/HCAP. Will wean O2 as tolerated. Consult pulmonology who she sees outpatient. Possible rheumatoid lung vs MAC? Gram positive blood cultures - will cont cefepime, f/u results staph hominis likely is a contaminant but patient is immunosuppressed we will continue cefe pime Abnormal CXR - this is Healthcare-associated pneumonia given assisted living facility setting. Given bronciectasis will treat for pseudomonas, gram negative. 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 Will have pulm assess for possible lung tox given abnormal CT DM2 - A1c 8.1, will initiate jardiance given cardiac arrhythmia and diastolic CHF and tradjenta for oral hypoglycemic agents FEN - Cardiac diet PPX - lovenox FULL CODE DIspo - inpatient History of Present Illness History of Present Illness Ms Weber is a 81 year old female w/ PMHx HTN, GERD, Rheumatoid arthritis, DM2 with neuropathy who presents with report of greater than 2-week history of cough with purulent sputum, shortness of breath. She denies nausea, vomiting, diarrhea. She denies abdominal pain. He does report some chest pressure intermittently for the past 2 weeks as well. She has attributed the chest pressure to coughing. She denies hemoptysis. She is currently residing in an assisted living facility, and she reports that multiple staff members and other patients living that have had similar symptoms. She has been fully vaccinated against COVID-19, including booster, she has had an influenza vaccine as well. She has not recently been hospitalized, denies recent travel, denies recent surgery. She does have a chronically swollen right lower extremity, which is unchanged. She has chronic lower extremity and foot pain secondary to diabetic neuropathy. She is hypoxic on room air, she does not normally require supplemental oxygen. She quit smoking many decades ago. She has no known history of COPD or pulmonary disease. She did have outpatient eval by pulm and CT chest outpatient, she doesn't remember the outcome EKG #1: 1903. Sinus, Rate is 91 bpm, left axis, no ST elevation or TWI EKG #2: 2329. Atrial fibrillation with RVR, Rate is 132 bpm, left axis, no ST elevation or TWI Chest radiograph with bibasilar airspace disease. Given her symptoms and elevated D-dimer she underwent CT pulmonary angiogram revealing no pulmonary embolism but did reveal dilated pulmonary artery trunk suggesting pulmonary artery hypertension as well as diffuse scattered bilateral groundglass consolidative opacities with tree-in-bud appearance and hepatic steatosis incidentally Labs with WBC 12.7, Hb 11.3, platelets 200, NA 139, K3.9, BUN 31, CR 1.4, glucose 139, albumin 2.9 otherwise LFTs within normal laboratory limits, high- sensitivity troponin is 30, NT proBNP is 847, urinalysis with moderate leuk esterase, rapid influenza negative, rapid COVID-19 negative, D-dimer 1.35 12/16: Blood cultures resulted +2 bottles with gram-positive cocci. Discussed with pulmonology bronchiectatic changes and chronic methotrexate are concerning for possible MAC. We will continue on cefepime but ultimately patient will likely need a bronchoscopy. Glucose fasting has been in the 150s not on steroid treatment will check A1c and place on insulin as needed. Also she is back in atrial fibrillation. Will have consultation with cardiology 12/17: Blood cultures with staph hominis. Still with significant bronchospasm. She symptomatically feels very weak but is willing to try to get out of bed toda y. Atrial fibrillation relatively rate controlled, may need to change to Cardizem if bronchospasm continues 12/18: Severe weakness of bilateral lower extremities and pain on standing cannot stand without 2 person assist. From a respiratory standpoint she still feels very short of breath with cough does not feel she is making much improvement. Still with bronchospasms. 12/19: Breathing is improved somewhat but she still feels extremely weak. Bilateral lower extremity pain is chronic present. No chest pain today. Remains in sinus rhythm. Therapy has recommended skilled. Discussed with pulmonology may be able to transition to oral antibiotics the next 24 to 48 hours and will get repeat chest x-ray as an underlying concern for MAC is present and would potentially need bronchoscopy. 12/20: Still with significant dyspnea and wheezing. Discussed with cardiology and based on my interpretation chest radiograph worse at the bases. Plan for consideration of bronchoscopy per discussion with pulmonology on 12/23/2021 we will continue cefepime IV and continue rehab modalities that she is still very weak and had 2 person assist even to get up to the chair that is right next to her bed. 12/21: Still without a bowel movement. Still with dyspnea on exertion requiring O2. Continue on cefepime blood cultures positive. 12/22: Try to push hard stool. Dyspnea continues requiring O2. Not feeling get out of bed today. Vitals/I&O Vitals/I&O: Vital Signs Date Time Temp Pulse Resp B/P (MAP) Pulse Ox O2 Delivery O2 Flow Rate FiO2 12/22/21 11:20 94 Nasal Cannula 2.0 12/22/21 11:00 97.3 76 18 139/58 (85) 97.3 I & O 12/21/21 12/21/21 12/22/21 15:00 23:00 07:00 Intake Total 300 ml 500 ml 200 ml Output Total 325 ml 301 ml 300 ml Balance -25 ml 199 ml -100 ml Physical Exam General: mild distress Heart: Other (Irregularly irregular) Lungs: Crackles Abdomen: Normal bowel sounds Extremities: No edema, Normal pulses Skin: No significant lesion Labs Labs: Laboratory Tests Test 12/21/21 15:56 12/21/21 20:43 12/22/21 07:31 12/22/21 11:34 Glucose (Fingerstick) 160 mg/dL (70-99) 137 mg/dL (70-99) 121 mg/dL (70-99) 145 mg/dL (70-99) Assessment and Plan Assessmemt and Plan Problems Medical Problems: (1) Healthcare-associated pneumonia Status: Acute (2) Paroxysmal atrial fibrillation Status: Acute (3) Respiratory failure with hypoxia Status: Acute Comment Review of Relevant I have reviewed the following items kierra (where applicable) has been applied. Medications: Current Medications Medications (Trade) Dose Ordered Sig/Juany Route PRN Reason Start Time Stop Time Status Last Admin Dose Admin Methotrexate (Rheumatrex) 15 mg WEEKLY PO 12/22/21 09:00 12/22/21 09:13 Betamethasone/ Clotrimazole (Lotrisone) 1 julianne BID TP 12/21/21 15:15 12/22/21 09:03 Hydroxyzine HCl (Atarax) 10 mg PRN Q6HRS PRN PO ITCHING 12/21/21 21:00 12/21/21 21:07 Justifications for Admission Other Justification NEELA AYALA MD Dec 22, 2021 12:39
[2021-12-22] MEDS ORDERED: AMIT10TA PO (14:09)
[2021-12-22] MEDS ORDERED: LIPA1CAP4 PO (14:09)
[2021-12-22] MEDS ORDERED: METH2.5T PO (14:09)
[2021-12-22] MEDS ORDERED: METF500T16 PO (14:09)
[2021-12-22] MEDS ORDERED: ATOR20TA58 PO (14:09)
[2021-12-22] MEDS ORDERED: LEVO75TA67 PO (14:09)
[2021-12-22] MEDS ORDERED: LISI1TAB35 PO (14:09)
[2021-12-22] MEDS: CEFEPIME HCL IV Push 2 GM VIAL. IVP SCH (22:12)
[2021-12-22] MEDS: PSYLLIUM HUSK (SUGAR FREE) 1 PKT PACKET PO SCH (22:14)
[2021-12-23 03:15] VITALS: BP 127/52
[2021-12-23 05:40] LABS: BASO # 0.1 x10^3/uL (0.0-0.2); BASO % 1 % (0-3); EOS # 0.2 x10^3/uL (0.0-0.7); EOS % 2 % (0-3); HEMATOCRIT 41.4 % (36.0-47.0); HEMOGLOBIN 12.8 g/dL (12.0-15.5); LYMPH % 11 % (24-48); MEAN CORPUSCULAR HEMOGLOBIN 25 pg (25-35); MEAN CORPUSCULAR HGB CONC 31 g/dL (31-37); MEAN CORPUSCULAR VOLUME 81 fL (79-100); MONO # 0.7 x10^3/uL (0.0-1.1); MONO % 7 % (0-9); NEUT % 79 % (31-73); PLATELET COUNT 188 x10^3/uL (140-400); RED BLOOD COUNT 5.08 x10^6/uL (3.50-5.40); RED CELL DISTRIBUTION WIDTH 20.3 % (11.5-14.5); WHITE BLOOD COUNT 8.9 x10^3/uL (4.0-11.0)
[2021-12-23 05:52] LABS: PROTHROMBIN TIME PATIENT 15.5 SEC (11.7-14.0)
[2021-12-23] MEDS ORDERED: PROCHLORPERAZINE 10 MG/2 ML VIAL. IVP PRN (06:00)
[2021-12-23] MEDS ORDERED: MORPHINE SULFATE 2 MG/ML INJ. IVP PRN (06:00)
[2021-12-23] MEDS ORDERED: HYDROmorphone 2 MG/ML INJ. IVP PRN (06:00)
[2021-12-23] MEDS ORDERED: fentaNYL PF VIAL 100 MCG/2 ML VIAL IVP PRN ×2 (06:00)
[2021-12-23] MEDS ORDERED: IV RINGERS,LACTATED 1000ML 1,000 ML IV SCH (06:00)
[2021-12-23 06:07] LABS: ALBUMIN 3.1 g/dL (3.4-5.0); ALBUMIN/GLOBULIN RATIO 0.8 (1.0-1.7); CALCIUM 9.8 mg/dL (8.5-10.1); CREATININE 0.9 mg/dL (0.6-1.0); GFR 60.4; POTASSIUM 4.4 mmol/L (3.5-5.1); TOTAL BILIRUBIN 0.4 mg/dL (0.2-1.0); TOTAL PROTEIN 7.1 g/dL (6.4-8.2)
[2021-12-23 07:00] VITALS: BP 105/50
[2021-12-23] MEDS: BUDESONIDE 0.5 MG/2 ML NEBU. NEB SCH ×2 (07:21→20:30)
[2021-12-23] MEDS: IPRATRPIUM/ALBUTEROL 0.5/2.5MG 3 ML NEBU. NEB SCH ×4 (07:22→20:30)
[2021-12-23] MEDS: INSULIN LISPRO 300 UNITS/3 ML VIAL. SQ SCH ×4 (08:00→16:52)
--- NOTE | 2021-12-23 08:26 | PDOC ---
PULMONARY PROGRESS NOTES DATE: 12/23/21 TIME: 08:25 Subjective Patient not more short of air, cough nonproductive Vitals Vital Signs Date Time Temp Pulse Resp B/P (MAP) Pulse Ox O2 Delivery O2 Flow Rate FiO2 12/23/21 07:22 96 Nasal Cannula 2.0 12/23/21 03:15 97.7 62 20 127/52 (77) 97.7 ROS: No Nausea, No Chest Pain, No Abdominal Pain, No Increase Cough General: Alert, No acute distress HEENT: Other (nc at perrl ) Lungs: Crackles Cardiovascular: S1, S2 Abdomen: Soft Neuro Exam: Alert Extremities: No Edema Skin: Warm Labs Laboratory Tests Test 12/21/21 11:10 12/21/21 15:56 12/21/21 20:43 12/22/21 07:31 Glucose (Fingerstick) 120 mg/dL (70-99) 160 mg/dL (70-99) 137 mg/dL (70-99) 121 mg/dL (70-99) Test 12/22/21 11:34 12/22/21 17:16 12/22/21 22:26 12/23/21 04:40 Glucose (Fingerstick) 145 mg/dL (70-99) 120 mg/dL (70-99) 140 mg/dL (70-99) White Blood Count 8.9 x10^3/uL (4.0-11.0) Red Blood Count 5.08 x10^6/uL (3.50-5.40) Hemoglobin 12.8 g/dL (12.0-15.5) Hematocrit 41.4 % (36.0-47.0) Mean Corpuscular Volume 81 fL (79-100) Mean Corpuscular Hemoglobin 25 pg (25-35) Mean Corpuscular Hemoglobin Concent 31 g/dL (31-37) Red Cell Distribution Width 20.3 % (11.5-14.5) Platelet Count 188 x10^3/uL (140-400) Neutrophils (%) (Auto) 79 % (31-73) Lymphocytes (%) (Auto) 11 % (24-48) Monocytes (%) (Auto) 7 % (0-9) Eosinophils (%) (Auto) 2 % (0-3) Basophils (%) (Auto) 1 % (0-3) Neutrophils # (Auto) 7.0 x10^3/uL (1.8-7.7) Lymphocytes # (Auto) 1.0 x10^3/uL (1.0-4.8) Monocytes # (Auto) 0.7 x10^3/uL (0.0-1.1) Eosinophils # (Auto) 0.2 x10^3/uL (0.0-0.7) Basophils # (Auto) 0.1 x10^3/uL (0.0-0.2) Prothrombin Time 15.5 SEC (11.7-14.0) Prothromb Time International Ratio 1.3 (0.8-1.1) Sodium Level 140 mmol/L (136-145) Potassium Level 4.4 mmol/L (3.5-5.1) Chloride Level 101 mmol/L (98-107) Carbon Dioxide Level 35 mmol/L (21-32) Anion Gap 4 (6-14) Blood Urea Nitrogen 20 mg/dL (7-20) Creatinine 0.9 mg/dL (0.6-1.0) Estimated GFR (Cockcroft-Gault) 60.4 BUN/Creatinine Ratio 22 (6-20) Glucose Level 140 mg/dL (70-99) Calcium Level 9.8 mg/dL (8.5-10.1) Total Bilirubin 0.4 mg/dL (0.2-1.0) Aspartate Amino Transf (AST/SGOT) 23 U/L (15-37) Alanine Aminotransferase (ALT/SGPT) 25 U/L (14-59) Alkaline Phosphatase 68 U/L (46-116) Total Protein 7.1 g/dL (6.4-8.2) Albumin 3.1 g/dL (3.4-5.0) Albumin/Globulin Ratio 0.8 (1.0-1.7) Test 12/23/21 08:18 Glucose (Fingerstick) 136 mg/dL (70-99) Laboratory Tests Test 12/22/21 11:34 12/22/21 17:16 12/22/21 22:26 12/23/21 04:40 Glucose (Fingerstick) 145 mg/dL (70-99) 120 mg/dL (70-99) 140 mg/dL (70-99) White Blood Count 8.9 x10^3/uL (4.0-11.0) Red Blood Count 5.08 x10^6/uL (3.50-5.40) Hemoglobin 12.8 g/dL (12.0-15.5) Hematocrit 41.4 % (36.0-47.0) Mean Corpuscular Volume 81 fL (79-100) Mean Corpuscular Hemoglobin 25 pg (25-35) Mean Corpuscular Hemoglobin Concent 31 g/dL (31-37) Red Cell Distribution Width 20.3 % (11.5-14.5) Platelet Count 188 x10^3/uL (140-400) Neutrophils (%) (Auto) 79 % (31-73) Lymphocytes (%) (Auto) 11 % (24-48) Monocytes (%) (Auto) 7 % (0-9) Eosinophils (%) (Auto) 2 % (0-3) Basophils (%) (Auto) 1 % (0-3) Neutrophils # (Auto) 7.0 x10^3/uL (1.8-7.7) Lymphocytes # (Auto) 1.0 x10^3/uL (1.0-4.8) Monocytes # (Auto) 0.7 x10^3/uL (0.0-1.1) Eosinophils # (Auto) 0.2 x10^3/uL (0.0-0.7) Basophils # (Auto) 0.1 x10^3/uL (0.0-0.2) Prothrombin Time 15.5 SEC (11.7-14.0) Prothromb Time International Ratio 1.3 (0.8-1.1) Sodium Level 140 mmol/L (136-145) Potassium Level 4.4 mmol/L (3.5-5.1) Chloride Level 101 mmol/L (98-107) Carbon Dioxide Level 35 mmol/L (21-32) Anion Gap 4 (6-14) Blood Urea Nitrogen 20 mg/dL (7-20) Creatinine 0.9 mg/dL (0.6-1.0) Estimated GFR (Cockcroft-Gault) 60.4 BUN/Creatinine Ratio 22 (6-20) Glucose Level 140 mg/dL (70-99) Calcium Level 9.8 mg/dL (8.5-10.1) Total Bilirubin 0.4 mg/dL (0.2-1.0) Aspartate Amino Transf (AST/SGOT) 23 U/L (15-37) Alanine Aminotransferase (ALT/SGPT) 25 U/L (14-59) Alkaline Phosphatase 68 U/L (46-116) Total Protein 7.1 g/dL (6.4-8.2) Albumin 3.1 g/dL (3.4-5.0) Albumin/Globulin Ratio 0.8 (1.0-1.7) Test 12/23/21 08:18 Glucose (Fingerstick) 136 mg/dL (70-99) Medications Active Scripts Medications Dose Route/Sig Max Daily Dose Days Date Category Dose Instructions Ocuvite Lutein 25-5 mg Softgel (Lutein/Zeaxanthin) 1 Each Capsule 1 Cap PO DAILY 30 12/15/21 Reported Acidophilus (Lactobacillus Acidophilus) 1 Each Tab.chew 1 Each PO DAILY 12/15/21 Reported Hydrocodone-Acetamin 5-325 mg (Hydrocodone/Acetaminophen) 1 Each Tablet 1 Each PO Q6HRS PRN 7 07/31/21 Rx [Creon] 07/30/21 Reported Tylenol Extra Strength (Acetaminophen) 500 Mg Tablet 500 Mg PO BID 07/30/21 Reported Calcium (Calcium Carbonate) 500 Mg Tablet 500 Mg PO TID 07/30/21 Reported Protonix (Pantoprazole Sodium) 20 Mg Tablet.dr 20 Mg PO DAILY 07/30/21 Reported Folic Acid 0.4 Mg Tablet 0.4 Mg PO DAILY 07/30/21 Reported Vitamin D3 (Vitamin D) 125 Mcg Capsule 125 Mcg PO DAILY 07/30/21 Reported 5,000 UNITS = 125 MCG Methotrexate (Methotrexate Sodium) 2.5 Mg Tablet 6 Tab PO WEEKLY 07/30/21 Reported Ocuvite Tablet (Vit A,C & E/Lutein/Minerals) 1 Each Tablet 1 Tab PO DAILY 30 07/30/21 Reported Probiotic (Lactobacillus Combo No.10) 1 Each Capsule 1 Tab PO DAILY 30 07/30/21 Reported Lyrica (Pregabalin) 150 Mg Capsule 150 Mg PO TID 30 07/30/21 Reported Impression . 1. Acute hypoxic respiratory failure with progression of reticular nodular interstitial infiltrates along with increasing bronchiectasis. This is a patient who is immunocompromised. She is on methotrexate for rheumatoid arthritis. She is at risk for opportunistic and gram-negative infection such as Pseudomonas. Her CT chest presentation is also highly suspicious for Mycobacterium avium complex infection. She has reticular nodular interstitial infiltrates along with bronchiectasis. There has been progression since previous two CAT scans. 2. Acute kidney injury, resolved. 3. No significant tobaccoism. 4. Updated on COVID-19 vaccination. 5. Mild bronchospasm, likely secondary to infectious etiology. She does not have any significant tobaccoism. Resolved. Plan . Reviewed risk benefits and alternatives to bronchoscopy she consented Continue current empiric antibiotics Discharge tomorrow 12/24 Follow-up in the office YAMILEX NASCIMENTO MD Dec 23, 2021 08:26
[2021-12-23] MEDS: CLOTRIMAZOLE/BETAMETH 1%-0.05% TOPICAL CREAM 15GM TUBE. TP SCH ×2 (08:56→20:28)
[2021-12-23] MEDS: PREGABALIN 75 MG CAPSULE PO SCH ×3 (08:59→20:23)
[2021-12-23] MEDS: CALCIUM CARBONATE 500 MG TABLET PO SCH ×3 (09:00→20:23)
[2021-12-23] MEDS: POLYETHYLENE GLYCOL 3350 17 GM PACKET. PO SCH (09:00)
[2021-12-23] MEDS ORDERED: LIDOCAINE 2% VISCOUS 100 ML BOTTLE. ONE (10:26)
[2021-12-23] MEDS ORDERED: LIDOCAINE 4% TOPICAL 50 ML SOLUTION. ONE (10:26)
[2021-12-23 10:28] VITALS: BP 132/63
[2021-12-23] MEDS ORDERED: LIDOCAINE 1% Multi-Dose 20 ML VIAL. ONE (10:37)
[2021-12-23] MEDS ORDERED: PROPOFOL 10 MG/ML (20ML) VIAL. IV ONE (11:00)
[2021-12-23] MEDS ORDERED: LIDOCAINE 2% PF 5 ML VIAL. ONE (11:00)
[2021-12-23] MEDS: APIXABAN 5 MG TABLET. PO SCH ×2 (13:04→20:24)
[2021-12-23] MEDS: PANTOPRAZOLE 40 MG TABLET.DR. PO SCH (13:04)
[2021-12-23] MEDS: AMIODARONE HCL 200 MG TABLET. PO SCH ×2 (13:04→20:24)
[2021-12-23] MEDS: EMPAGLIFLOZIN 25 MG TABLET. PO SCH (13:05)
[2021-12-23] MEDS: LINAGLIPTIN 5 MG TABLET PO SCH (13:06)
[2021-12-23] MEDS: CHOLECALCIFEROL (VITAMIN D3) 5,000 UNIT CAPSULE PO SCH (13:06)
[2021-12-23] MEDS ORDERED: HYDROcodone/APAP 5/325MG 1 TAB TABLET PO PRN (14:15)
--- NOTE | 2021-12-23 14:48 | PDOC ---
[facility] PROGRESS NOTE Date of Service DOS: DATE: 12/23/21 TIME: 14:46 Chief Complaint Chief Complaint Acute respiratory failure with hypoxia - due to bronchiectasis/HCAP. Will wean O2 as tolerated. Consult pulmonology who she sees outpatient. Possible rheumatoid lung vs MAC? Gram positive blood cultures - will cont cefepime, f/u results staph hominis likely is a contaminant but patient is immunosuppressed we will continue cefe pime Abnormal CXR - this is Healthcare-associated pneumonia given assisted living facility setting. Given bronciectasis will treat for pseudomonas, gram negative. 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 Will have pulm assess for possible lung tox given abnormal CT DM2 - A1c 8.1, will initiate jardiance given cardiac arrhythmia and diastolic CHF and tradjenta for oral hypoglycemic agents FEN - Cardiac diet PPX - lovenox FULL CODE DIspo - inpatient History of Present Illness History of Present Illness Ms Weber is a 81 year old female w/ PMHx HTN, GERD, Rheumatoid arthritis, DM2 with neuropathy who presents with report of greater than 2-week history of cough with purulent sputum, shortness of breath. She denies nausea, vomiting, diarrhea. She denies abdominal pain. He does report some chest pressure intermittently for the past 2 weeks as well. She has attributed the chest pressure to coughing. She denies hemoptysis. She is currently residing in an assisted living facility, and she reports that multiple staff members and other patients living that have had similar symptoms. She has been fully vaccinated against COVID-19, including booster, she has had an influenza vaccine as well. She has not recently been hospitalized, denies recent travel, denies recent surgery. She does have a chronically swollen right lower extremity, which is unchanged. She has chronic lower extremity and foot pain secondary to diabetic neuropathy. She is hypoxic on room air, she does not normally require supplemental oxygen. She quit smoking many decades ago. She has no known history of COPD or pulmonary disease. She did have outpatient eval by pulm and CT chest outpatient, she doesn't remember the outcome EKG #1: 1903. Sinus, Rate is 91 bpm, left axis, no ST elevation or TWI EKG #2: 2329. Atrial fibrillation with RVR, Rate is 132 bpm, left axis, no ST elevation or TWI Chest radiograph with bibasilar airspace disease. Given her symptoms and elevated D-dimer she underwent CT pulmonary angiogram revealing no pulmonary embolism but did reveal dilated pulmonary artery trunk suggesting pulmonary artery hypertension as well as diffuse scattered bilateral groundglass consolidative opacities with tree-in-bud appearance and hepatic steatosis incidentally Labs with WBC 12.7, Hb 11.3, platelets 200, NA 139, K3.9, BUN 31, CR 1.4, glucose 139, albumin 2.9 otherwise LFTs within normal laboratory limits, high- sensitivity troponin is 30, NT proBNP is 847, urinalysis with moderate leuk esterase, rapid influenza negative, rapid COVID-19 negative, D-dimer 1.35 12/16: Blood cultures resulted +2 bottles with gram-positive cocci. Discussed with pulmonology bronchiectatic changes and chronic methotrexate are concerning for possible MAC. We will continue on cefepime but ultimately patient will likely need a bronchoscopy. Glucose fasting has been in the 150s not on steroid treatment will check A1c and place on insulin as needed. Also she is back in atrial fibrillation. Will have consultation with cardiology 12/17: Blood cultures with staph hominis. Still with significant bronchospasm. She symptomatically feels very weak but is willing to try to get out of bed toda y. Atrial fibrillation relatively rate controlled, may need to change to Cardizem if bronchospasm continues 12/18: Severe weakness of bilateral lower extremities and pain on standing cannot stand without 2 person assist. From a respiratory standpoint she still feels very short of breath with cough does not feel she is making much improvement. Still with bronchospasms. 12/19: Breathing is improved somewhat but she still feels extremely weak. Bilateral lower extremity pain is chronic present. No chest pain today. Remains in sinus rhythm. Therapy has recommended skilled. Discussed with pulmonology may be able to transition to oral antibiotics the next 24 to 48 hours and will get repeat chest x-ray as an underlying concern for MAC is present and would potentially need bronchoscopy. 12/20: Still with significant dyspnea and wheezing. Discussed with cardiology and based on my interpretation chest radiograph worse at the bases. Plan for consideration of bronchoscopy per discussion with pulmonology on 12/23/2021 we will continue cefepime IV and continue rehab modalities that she is still very weak and had 2 person assist even to get up to the chair that is right next to her bed. 12/21: Still without a bowel movement. Still with dyspnea on exertion requiring O2. Continue on cefepime blood cultures positive. 12/22: Try to push hard stool. Dyspnea continues requiring O2. Not feeling get out of bed today. 12/23, bronch done today, still dyspneic, still hypoxic, stable, cannot transfer, cannot stand, needs rehab placement Vitals/I&O Vitals/I&O: Vital Signs Date Time Temp Pulse Resp B/P (MAP) Pulse Ox O2 Delivery O2 Flow Rate FiO2 12/23/21 13:06 86 124/56 12/23/21 12:16 20 94 Simple Mask 5.0 12/23/21 11:46 98.1 98.1 I & O 12/22/21 12/22/21 12/23/21 15:00 23:00 07:00 Intake Total 360 ml 180 ml 400 ml Output Total 1300 ml Balance 360 ml 180 ml -900 ml Physical Exam General: mild distress Heart: Other (Irregularly irregular) Lungs: Wheezing Abdomen: Normal bowel sounds Extremities: No edema, Normal pulses Skin: No significant lesion Labs Labs: Laboratory Tests Test 12/22/21 17:16 12/22/21 22:26 12/23/21 04:40 12/23/21 08:18 Glucose (Fingerstick) 120 mg/dL (70-99) 140 mg/dL (70-99) 136 mg/dL (70-99) White Blood Count 8.9 x10^3/uL (4.0-11.0) Red Blood Count 5.08 x10^6/uL (3.50-5.40) Hemoglobin 12.8 g/dL (12.0-15.5) Hematocrit 41.4 % (36.0-47.0) Mean Corpuscular Volume 81 fL (79-100) Mean Corpuscular Hemoglobin 25 pg (25-35) Mean Corpuscular Hemoglobin Concent 31 g/dL (31-37) Red Cell Distribution Width 20.3 % (11.5-14.5) Platelet Count 188 x10^3/uL (140-400) Neutrophils (%) (Auto) 79 % (31-73) Lymphocytes (%) (Auto) 11 % (24-48) Monocytes (%) (Auto) 7 % (0-9) Eosinophils (%) (Auto) 2 % (0-3) Basophils (%) (Auto) 1 % (0-3) Neutrophils # (Auto) 7.0 x10^3/uL (1.8-7.7) Lymphocytes # (Auto) 1.0 x10^3/uL (1.0-4.8) Monocytes # (Auto) 0.7 x10^3/uL (0.0-1.1) Eosinophils # (Auto) 0.2 x10^3/uL (0.0-0.7) Basophils # (Auto) 0.1 x10^3/uL (0.0-0.2) Prothrombin Time 15.5 SEC (11.7-14.0) Prothromb Time International Ratio 1.3 (0.8-1.1) Sodium Level 140 mmol/L (136-145) Potassium Level 4.4 mmol/L (3.5-5.1) Chloride Level 101 mmol/L (98-107) Carbon Dioxide Level 35 mmol/L (21-32) Anion Gap 4 (6-14) Blood Urea Nitrogen 20 mg/dL (7-20) Creatinine 0.9 mg/dL (0.6-1.0) Estimated GFR (Cockcroft-Gault) 60.4 BUN/Creatinine Ratio 22 (6-20) Glucose Level 140 mg/dL (70-99) Calcium Level 9.8 mg/dL (8.5-10.1) Total Bilirubin 0.4 mg/dL (0.2-1.0) Aspartate Amino Transf (AST/SGOT) 23 U/L (15-37) Alanine Aminotransferase (ALT/SGPT) 25 U/L (14-59) Alkaline Phosphatase 68 U/L (46-116) Total Protein 7.1 g/dL (6.4-8.2) Albumin 3.1 g/dL (3.4-5.0) Albumin/Globulin Ratio 0.8 (1.0-1.7) Assessment and Plan Assessmemt and Plan Problems Medical Problems: (1) Healthcare-associated pneumonia Status: Acute (2) Paroxysmal atrial fibrillation Status: Acute (3) Respiratory failure with hypoxia Status: Acute Comment Review of Relevant I have reviewed the following items kierra (where applicable) has been applied. Medications: Current Medications Medications (Trade) Dose Ordered Sig/Juany Route PRN Reason Start Time Stop Time Status Last Admin Dose Admin Ringer's Solution 1,000 ml @ 30 mls/hr Q24H IV 12/23/21 06:00 12/23/21 17:59 12/23/21 10:41 Justifications for Admission Other Justification ABBY JOHNSON MD Dec 23, 2021 14:48
[2021-12-23 15:00] VITALS: BP 143/64
--- NOTE | 2021-12-23 16:14 | PDOC4 ---
Procedure Note Procedure: Bronchoscopy, bronchoalveolar lavage Indications: Persistent infiltrates on CT chest rule out Mycobacterium avium complex risk benefits and alternatives reviewed with patient she consented Complications: No immediate complications Procedural Details: Vital signs and O2 saturations were maintained within normal limits. Patient was sedated by anesthesia. Bronchoscope was passed through the right nares. The vocal cords were identified utilizing a bronchoscope. The bronchoscope was passed through the vocal cords into the right mainstem bronchus. The bronchoscope was advanced to the right lower lobe segment. A bronchoalveolar lavage was performed. The return was mixed in with blood, nasal bleeding. Patient tolerated procedure well with no immediate complications Conclusions: Findings #1 normal-appearing vocal cords #2 no purulent secretions Plan we will await BAL results YAMILEX NASCIMENTO MD Dec 23, 2021 16:13
[2021-12-23] MEDS: LIPASE/PROTEAS/AMYLAS 10/32/42 CAPSULE.DR. PO SCH (16:51)
[2021-12-23] MEDS: metFORMIN 500 MG TABLET PO SCH (16:51)
--- NOTE | 2021-12-23 17:45 | PDOC ---
PROGRESS NOTES Date of Service DATE: 12/23/21 TIME: 17:43 Subjective Subjective Patient seen and examined Objective Objective Vital Signs Date Time Temp Pulse Resp B/P (MAP) Pulse Ox O2 Delivery O2 Flow Rate FiO2 12/23/21 15:28 98 Nasal Cannula 2.0 12/23/21 15:00 98.2 81 18 143/64 (90) 98.2 Intake and Output 12/23/21 07:00 Intake Total 940 ml Output Total 1300 ml Balance -360 ml Intake Oral 940 ml Output Urine Total 1300 ml # Bowel Movements 1 Physical Exam Abdomen: Normal bowel sounds Heart: Other (Irregularly irregular) General: mild distress Lungs: Other (Mildly decreased breath sounds) Assessment Assessment Problems Medical Problems: (1) Healthcare-associated pneumonia Status: Acute (2) Paroxysmal atrial fibrillation Status: Acute (3) Respiratory failure with hypoxia Status: Acute 1. Acute respiratory failure secondary to PNA, bronchiectasis: Slowly improving. Followed by the car tester. 2. New onset AFIB with RVR; Maintaining SR. EF and LV WM normal on echo. Amiodarone and Eliquis. 3. Hypertension; controlled 4. Hyperlipidemia 5. Diabetes, II 6. Hypothyroidism 7. RA 8. KENNEY; improved 9. Bacteremia; BC with 2/4 bottles GPC Comment Review of Relevant I have reviewed the following items kierra (where applicable) has been applied. Labs Laboratory Tests Test 12/21/21 20:43 12/22/21 07:31 12/22/21 11:34 12/22/21 17:16 Glucose (Fingerstick) 137 mg/dL (70-99) 121 mg/dL (70-99) 145 mg/dL (70-99) 120 mg/dL (70-99) Test 12/22/21 22:26 12/23/21 04:40 12/23/21 08:18 12/23/21 16:36 Glucose (Fingerstick) 140 mg/dL (70-99) 136 mg/dL (70-99) 221 mg/dL (70-99) White Blood Count 8.9 x10^3/uL (4.0-11.0) Red Blood Count 5.08 x10^6/uL (3.50-5.40) Hemoglobin 12.8 g/dL (12.0-15.5) Hematocrit 41.4 % (36.0-47.0) Mean Corpuscular Volume 81 fL (79-100) Mean Corpuscular Hemoglobin 25 pg (25-35) Mean Corpuscular Hemoglobin Concent 31 g/dL (31-37) Red Cell Distribution Width 20.3 % (11.5-14.5) Platelet Count 188 x10^3/uL (140-400) Neutrophils (%) (Auto) 79 % (31-73) Lymphocytes (%) (Auto) 11 % (24-48) Monocytes (%) (Auto) 7 % (0-9) Eosinophils (%) (Auto) 2 % (0-3) Basophils (%) (Auto) 1 % (0-3) Neutrophils # (Auto) 7.0 x10^3/uL (1.8-7.7) Lymphocytes # (Auto) 1.0 x10^3/uL (1.0-4.8) Monocytes # (Auto) 0.7 x10^3/uL (0.0-1.1) Eosinophils # (Auto) 0.2 x10^3/uL (0.0-0.7) Basophils # (Auto) 0.1 x10^3/uL (0.0-0.2) Prothrombin Time 15.5 SEC (11.7-14.0) Prothromb Time International Ratio 1.3 (0.8-1.1) Sodium Level 140 mmol/L (136-145) Potassium Level 4.4 mmol/L (3.5-5.1) Chloride Level 101 mmol/L (98-107) Carbon Dioxide Level 35 mmol/L (21-32) Anion Gap 4 (6-14) Blood Urea Nitrogen 20 mg/dL (7-20) Creatinine 0.9 mg/dL (0.6-1.0) Estimated GFR (Cockcroft-Gault) 60.4 BUN/Creatinine Ratio 22 (6-20) Glucose Level 140 mg/dL (70-99) Calcium Level 9.8 mg/dL (8.5-10.1) Total Bilirubin 0.4 mg/dL (0.2-1.0) Aspartate Amino Transf (AST/SGOT) 23 U/L (15-37) Alanine Aminotransferase (ALT/SGPT) 25 U/L (14-59) Alkaline Phosphatase 68 U/L (46-116) Total Protein 7.1 g/dL (6.4-8.2) Albumin 3.1 g/dL (3.4-5.0) Albumin/Globulin Ratio 0.8 (1.0-1.7) Laboratory Tests Test 12/22/21 22:26 12/23/21 04:40 12/23/21 08:18 12/23/21 16:36 Glucose (Fingerstick) 140 mg/dL (70-99) 136 mg/dL (70-99) 221 mg/dL (70-99) White Blood Count 8.9 x10^3/uL (4.0-11.0) Red Blood Count 5.08 x10^6/uL (3.50-5.40) Hemoglobin 12.8 g/dL (12.0-15.5) Hematocrit 41.4 % (36.0-47.0) Mean Corpuscular Volume 81 fL (79-100) Mean Corpuscular Hemoglobin 25 pg (25-35) Mean Corpuscular Hemoglobin Concent 31 g/dL (31-37) Red Cell Distribution Width 20.3 % (11.5-14.5) Platelet Count 188 x10^3/uL (140-400) Neutrophils (%) (Auto) 79 % (31-73) Lymphocytes (%) (Auto) 11 % (24-48) Monocytes (%) (Auto) 7 % (0-9) Eosinophils (%) (Auto) 2 % (0-3) Basophils (%) (Auto) 1 % (0-3) Neutrophils # (Auto) 7.0 x10^3/uL (1.8-7.7) Lymphocytes # (Auto) 1.0 x10^3/uL (1.0-4.8) Monocytes # (Auto) 0.7 x10^3/uL (0.0-1.1) Eosinophils # (Auto) 0.2 x10^3/uL (0.0-0.7) Basophils # (Auto) 0.1 x10^3/uL (0.0-0.2) Prothrombin Time 15.5 SEC (11.7-14.0) Prothromb Time International Ratio 1.3 (0.8-1.1) Sodium Level 140 mmol/L (136-145) Potassium Level 4.4 mmol/L (3.5-5.1) Chloride Level 101 mmol/L (98-107) Carbon Dioxide Level 35 mmol/L (21-32) Anion Gap 4 (6-14) Blood Urea Nitrogen 20 mg/dL (7-20) Creatinine 0.9 mg/dL (0.6-1.0) Estimated GFR (Cockcroft-Gault) 60.4 BUN/Creatinine Ratio 22 (6-20) Glucose Level 140 mg/dL (70-99) Calcium Level 9.8 mg/dL (8.5-10.1) Total Bilirubin 0.4 mg/dL (0.2-1.0) Aspartate Amino Transf (AST/SGOT) 23 U/L (15-37) Alanine Aminotransferase (ALT/SGPT) 25 U/L (14-59) Alkaline Phosphatase 68 U/L (46-116) Total Protein 7.1 g/dL (6.4-8.2) Albumin 3.1 g/dL (3.4-5.0) Albumin/Globulin Ratio 0.8 (1.0-1.7) Microbiology 12/23/21 - Final, Complete 12/14/21 Urine Culture - Final, Complete 12/14/21 Blood Culture - Final, Complete NO GROWTH AFTER 5 DAYS Medications Current Medications Cefepime HCl (Maxipime) 2 gm 1X ONCE IVP Last administered on 12/14/21at 20:59; Start 12/14/21 at 20:00; Stop 12/14/21 at 20:01; Status DC Vancomycin HCl 1.5 gm/Sodium Chloride 500 ml @ 250 mls/hr 1X ONCE IV Last administered on 12/14/21at 21:00; Start 12/14/21 at 20:00; Stop 12/14/21 at 21:59; Status DC Sodium Chloride 1,000 ml @ 1,000 mls/hr 1X ONCE IV Last administered on 12/14/21at 20:55; Start 12/14/21 at 20:00; Stop 12/14/21 at 20:59; Status DC Iohexol (Omnipaque 350 Mg/ml) 80 ml 1X ONCE IV Last administered on 12/14/21at 20:30; Start 12/14/21 at 20:15; Stop 12/14/21 at 20:23; Status DC Info (CONTRAST GIVEN -- Rx MONITORING) 1 each PRN DAILY PRN MC SEE COMMENTS; Start 12/14/21 at 20:30; Stop 12/16/21 at 20:29; Status DC Diltiazem HCl (Cardizem Iv Push) 10 mg 1X ONCE IVP ; Start 12/14/21 at 22:00; Stop 12/14/21 at 22:01; Status DC Aspirin (Ecotrin) 325 mg 1X ONCE PO Last administered on 12/15/21at 00:39; Start 12/14/21 at 22:00; Stop 12/14/21 at 22:01; Status DC Acetaminophen (Tylenol) 650 mg PRN Q6HRS PRN PO MILD PAIN / TEMP > 100.3'F Last administered on 12/19/21at 11:45; Start 12/14/21 at 22:30 Fentanyl Citrate (Fentanyl 2ml Vial) 25 mcg PRN Q3HRS PRN IVP SEVERE PAIN 7-10; Start 12/14/21 at 22:30 Albuterol/ Ipratropium (Duoneb) 3 ml RTQID NEB Last administered on 12/23/21at 15:28; Start 12/15/21 at 08:00 Albuterol Sulfate (Ventolin Neb Soln) 2.5 mg PRN Q4HRS PRN NEB SHORTNESS OF BREATH; Start 12/14/21 at 22:30 Psyllium Hydrophilic Mucilloid (Metamucil Fiber Packet) 1 pkt QHS PO Last administered on 12/22/21 22:14; Start 12/14/21 at 23:00 Budesonide (Pulmicort) 0.5 mg RTBID NEB Last administered on 12/17/21at 07:43; Start 12/15/21 at 08:00; Stop 12/17/21 at 13:02; Status DC Guaifenesin (Robitussin Dm) 10 ml PRN Q6HRS PRN PO COUGH Last administered on 12/18/21 09:25; Start 12/14/21 at 22:30 Olanzapine (ZyPREXA ZYDIS) 5 mg PRN BID PRN PO ANXIETY / AGITATION Last administered on 12/15/21at 19:59; Start 12/14/21 at 22:30 Ondansetron HCl (Zofran) 4 mg PRN Q4HRS PRN IVP NAUSEA/VOMITING 1ST CHOICE; Start 12/14/21 at 22:30 Tramadol HCl (Ultram) 50 mg PRN Q6HRS PRN PO MODERATE PAIN 4-6 Last administered on 12/20/21at 11:01; Start 12/14/21 at 22:30 Hydralazine HCl (Apresoline Inj) 10 mg PRN Q4HRS PRN IVP ELEVATED BP, SEE COMMENTS; Start 12/14/21 at 22:30 Heparin Sodium (Porcine) (Heparin Sodium) 5,000 unit Q8HRS SQ Last administered on 12/17/21at 06:00; Start 12/15/21 at 06:00; Stop 12/17/21 at 14:41; Status DC Metoprolol Tartrate (Lopressor Vial) 5 mg PRN Q4HRS PRN IVP SEE ADMIN INSTRUCTIONS Last administered on 12/17/21at 07:21; Start 12/15/21 at 01:30 Calcium Carbonate/ Glycine (Oscal) 500 mg TID PO Last administered on 12/23/21 13:06; Start 12/15/21 at 14:00 Vitamin D (Vitamin D3) 5,000 unit DAILY PO Last administered on 12/23/21 13:06; Start 12/16/21 at 09:00 Methotrexate (Rheumatrex) 15 mg WEEKLY PO Last administered on 12/22/21at 09:13; Start 12/22/21 at 09:00; Stop 12/23/21 at 15:50; Status DC Pantoprazole Sodium (Protonix) 40 mg DAILYAC PO Last administered on 12/23/21 13:04; Start 12/16/21 at 07:30 Pregabalin (Lyrica) 150 mg TID PO Last administered on 12/23/21at 13:05; Start 12/15/21 at 14:00 Cefepime HCl (Maxipime) 2 gm Q24H IVP Last administered on 12/22/21at 22:12; Start 12/15/21 at 21:00; Stop 12/23/21 at 16:12; Status DC Diltiazem HCl (Cardizem Iv Push) 10 mg 1X ONCE IVP Last administered on 12/16/21at 10:56; Start 12/16/21 at 11:00; Stop 12/16/21 at 11:01; Status DC Budesonide (Pulmicort) 0.5 mg RTBID NEB Last administered on 12/23/21 07:21; Start 12/16/21 at 11:00 Insulin Human Lispro (HumaLOG) 0-9 UNITS TIDWMEALS SQ Last administered on 12/23/21at 16:52; Start 12/16/21 at 12:00 Dextrose (Dextrose 50%-Water Syringe) 12.5 gm PRN Q15MIN PRN IV SEE COMMENTS; Start 12/16/21 at 11:30; Stop 12/18/21 at 00:23; Status DC Dextrose (Iv Dextrose 5%) 250 ml PRN Q15MIN PRN IV SEE COMMENTS; Start 12/16/21 at 11:30 Diltiazem HCl (Cardizem 24hr Cd) 120 mg DAILY PO Last administered on 12/23/21 13:06; Start 12/16/21 at 17:00 Aspirin (Ecotrin) 81 mg DAILYWBKFT PO Last administered on 12/16/21at 17:11; Start 12/16/21 at 17:00; Stop 12/17/21 at 14:28; Status DC Perflutren Protein Type A Microsphe (Optison) 0.66 mg 1X ONCE IV ; Start 11/20 06/12 at 08:00; Stop 12/17/21 at 08:01; Status DC Digoxin (Lanoxin) 250 mcg 1X ONCE IV Last administered on 12/17/21at 07:18; Start 12/17/21 at 07:00; Stop 12/17/21 at 07:01; Status DC Empaglifozin (Jardiance) 25 mg DAILY PO Last administered on 12/23/21at 13:05; Start 12/17/21 at 14:00 Linagliptin (Tradjenta) 5 mg DAILY PO Last administered on 12/23/21 13:06; Start 12/17/21 at 14:00 Amiodarone HCl (Cordarone) 200 mg BID PO Last administered on 12/23/21 13:04; Start 12/17/21 at 15:00; Stop 12/23/21 at 21:01 Apixaban (Eliquis) 5 mg BID PO Last administered on 12/23/21 13:04; Start 12/17/21 at 21:00 Amiodarone HCl (Cordarone) 200 mg DAILY PO ; Start 12/24/21 at 09:00 Heparin Sodium (Porcine) (Heparin Sodium) 5,000 unit Q8HRS SQ Last administered on 12/17/21at 15:23; Start 12/17/21 at 15:00; Stop 12/17/21 at 20:00; Status DC Perflutren Protein Type A Microsphe (Optison) 0.66 mg 1X ONCE IV ; Start 12/18/21 at 07:45; Stop 12/18/21 at 07:46; Status DC Magnesium Citrate (Citroma) 296 ml 1X ONCE PO ; Start 12/18/21 at 12:30; Stop 12/18/21 at 12:31; Status DC Polyethylene Glycol (miraLAX PACKET) 17 gm DAILY PO Last administered on at 09:01; Start 12/18/21 at 11:30 Perflutren Protein Type A Microsphe (Optison) 0.66 mg STK-MED ONCE IV ; Start 12/18/21 at 13:44; Stop 12/18/21 at 13:44; Status DC Magnesium Citrate (Citroma) 296 ml 1X ONCE PO Last administered on 12/20/21at 17:21; Start 12/20/21 at 17:00; Stop 12/20/21 at 17:01; Status DC Fentanyl Citrate (Fentanyl 2ml Vial) 25 mcg PRN Q5MIN PRN IVP MILD PAIN 1-3; Start 12/23/21 at 06:00; Stop 12/24/21 at 05:59 Fentanyl Citrate (Fentanyl 2ml Vial) 50 mcg PRN Q5MIN PRN IVP MODERATE PAIN 4- 6; Start 12/23/21 at 06:00; Stop 12/24/21 at 05:59 Morphine Sulfate (Morphine Sulfate) 1 mg PRN Q10MIN PRN IVP SEVERE PAIN 7-10; Start 12/23/21 at 06:00; Stop 12/24/21 at 05:59 Ringer's Solution 1,000 ml @ 30 mls/hr Q24H IV Last administered on 12/23/21at 1 0:41; Start 12/23/21 at 06:00; Stop 12/23/21 at 17:59 Hydromorphone HCl (Dilaudid) 0.5 mg PRN Q10MIN PRN IVP SEVERE PAIN 7-10, 2nd CHOICE; Start 12/23/21 at 06:00; Stop 12/24/21 at 05:59 Prochlorperazine Edisylate (Compazine) 5 mg PACU PRN PRN IVP NAUSEA, MRX1; Start 12/23/21 at 06:00; Stop 12/24/21 at 05:59 Betamethasone/ Clotrimazole (Lotrisone) 1 julianne BID TP Last administered on 12/23at 08:56; Start 12/21/21 at 15:15 Hydroxyzine HCl (Atarax) 10 mg PRN Q6HRS PRN PO ITCHING Last administered on 12/21/21at 21:07; Start 12/21/21 at 21:00 Lidocaine HCl (Lidocaine 2% Viscous) 100 ml STK-MED ONCE .ROUTE ; Start 12/23/21 at 10:26; Stop 12/23/21 at 10:26; Status DC Lidocaine HCl (Lidocaine 4% Topical) 50 ml STK-MED ONCE .ROUTE ; Start 12/23/21 at 10:26; Stop 12/23/21 at 10:26; Status DC Lidocaine HCl (Lidocaine 1% 20ml Vial) 20 ml STK-MED ONCE .ROUTE ; Start 12/23/21 at 10:37; Stop 12/23/21 at 10:37; Status DC Propofol (Diprivan) 200 mg STK-MED ONCE IV ; Start 12/23/21 at 11:00; Stop 12/23/21 at 11:00; Status DC Lidocaine HCl (Lidocaine Pf 2% Vial) 5 ml STK-MED ONCE .ROUTE ; Start 12/23/21 at 11:00; Stop 12/23/21 at 11:01; Status DC Amitriptyline HCl (Elavil) 10 mg QHS PO ; Start 12/23/21 at 21:00 Atorvastatin Calcium (Lipitor) 20 mg HS PO ; Start 12/23/21 at 21:00 Acetaminophen/ Hydrocodone Bitart (Lortab 5/325) 1 tab PRN Q6HRS PRN PO PAIN; Start 12/23/21 at 14:15 Levothyroxine Sodium (Synthroid) 75 mcg DAILYAC PO ; Start 12/24/21 at 07:30 Metformin HCl (Glucophage) 500 mg BIDWMEALS PO Last administered on 12/23/21at 16:51; Start 12/23/21 at 17:00 Methotrexate (Rheumatrex) 10 mg WEEKLY PO ; Start 12/30/21 at 09:00 Multivitamins/ Minerals (I-Aurora) 1 tab DAILY PO ; Start 12/24/21 at 09:00 Folic Acid (Folic Acid) 0.5 mg DAILY PO ; Start 12/24/21 at 09:00 Amylase/Lipase/ Protease (Zenpep 10,000) 1 cap TIDWMEALS PO Last administered on 12/23/21at 16:51; Start 12/23/21 at 17:00 Lisinopril (Prinivil) 10 mg DAILY PO ; Start 12/24/21 at 09:00 Hydrochlorothiazide (Microzide) 12.5 mg DAILY PO ; Start 12/24/21 at 09:00 Amoxicillin/ Clavulanate Potassium (Augmentin 875/ 125mg) 1 tab BID PO ; Start 12/23/21 at 21:00 Active Scripts Active Hydrocodone-Acetamin 5-325 mg (Hydrocodone/Acetaminophen) 1 Each Tablet 1 Each PO Q6HRS PRN 7 Days Reported Methotrexate (Methotrexate Sodium) 2.5 Mg Tablet 4 Tab PO WEEKLY Amitriptyline Hcl 10 Mg Tablet 1 Tab PO QHS Atorvastatin Calcium 20 Mg Tablet 20 Mg PO HS Metformin Hcl 500 Mg Tablet 500 Mg PO BIDWMEALS Lisinopril-Hctz 10-12.5 Mg Tab (Lisinopril/Hydrochlorothiazide) 1 Each Tablet 1 Tab PO DAILY Creon Dr 12,000 Units Capsule (Lipase/Protease/Amylase) 1 Each Capsule.dr 1 Each PO TIDWMEALS Levo-T (Levothyroxine Sodium) 75 Mcg Tablet 1 Tab PO DAILY 30 Days Acidophilus (Lactobacillus Acidophilus) 1 Each Tab.chew 1 Each PO DAILY Calcium (Calcium Carbonate) 500 Mg Tablet 500 Mg PO TID Protonix (Pantoprazole Sodium) 20 Mg Tablet.dr 20 Mg PO DAILY Folic Acid 0.4 Mg Tablet 0.4 Mg PO DAILY Vitamin D3 (Vitamin D) 125 Mcg Capsule 125 Mcg PO DAILY 5,000 UNITS = 125 MCG Ocuvite Tablet (Vit A,C & E/Lutein/Minerals) 1 Each Tablet 1 Tab PO DAILY 30 Days Probiotic (Lactobacillus Combo No.10) 1 Each Capsule 1 Tab PO DAILY 30 Days Lyrica (Pregabalin) 150 Mg Capsule 150 Mg PO TID 30 Days Vitals/I & O Vital Sign - Last 24 Hours 12/22/21 12/22/21 12/22/21 12/22/21 19:35 20:00 22:14 23:00 Temp 98.3 97.8 98.3 97.8 Pulse 72 72 69 Resp 18 20 B/P (MAP) 122/50 (74) 122/50 109/52 (71) Pulse Ox 93 93 O2 Delivery Nasal Cannula Nasal Cannula Nasal Cannula O2 Flow Rate 2.0 2.0 2.0 12/23/21 12/23/21 12/23/21 12/23/21 03:15 07:00 07:22 08:00 Temp 97.7 97.7 Pulse 62 67 Resp 20 18 B/P (MAP) 127/52 (77) 105/50 (68) Pulse Ox 96 94 96 O2 Delivery Nasal Cannula Nasal Cannula Nasal Cannula Nasal Cannula O2 Flow Rate 2.0 2.0 2.0 2.0 12/23/21 12/23/21 12/23/21 12/23/21 10:28 10:28 11:46 12:00 Temp 98.0 98.1 98.0 98.1 Pulse 67 99 Resp 20 B/P (MAP) 148/67 Pulse Ox 100 97 94 O2 Delivery Nasal Cannula Nasal Cannula Nasal Cannula O2 Flow Rate 2.0 10.0 2.0 12/23/21 12/23/21 12/23/21 12/23/21 12:01 12:16 13:04 13:06 Pulse 89 86 86 86 Resp 20 B/P (MAP) 150/68 145/67 124/56 124/56 Pulse Ox 94 94 O2 Delivery Simple Mask Simple Mask O2 Flow Rate 5.0 5.0 12/23/21 12/23/21 15:00 15:28 Temp 98.2 98.2 Pulse 81 Resp 18 B/P (MAP) 143/64 (90) Pulse Ox 92 98 O2 Delivery Nasal Cannula Nasal Cannula O2 Flow Rate 2.0 2.0 Intake and Output 12/22/21 12/22/21 12/23/21 15:00 23:00 07:00 Intake Total 360 ml 180 ml 400 ml Output Total 1300 ml Balance 360 ml 180 ml -900 ml Justifications for Admission Other Justification WM HALL MD Dec 23, 2021 17:45
[2021-12-23 19:00] VITALS: BP 126/56
[2021-12-23] MEDS: PSYLLIUM HUSK (SUGAR FREE) 1 PKT PACKET PO SCH (20:22)
[2021-12-23] MEDS: AMOXICILLIN/K CLAV 875/125MG TABLET. PO SCH (20:23)
[2021-12-23] MEDS ORDERED: AMITRIPTYLINE HCL 10 MG TABLET. PO SCH (21:00)
[2021-12-23] MEDS ORDERED: ATORVASTATIN CALCIUM 20 MG TABLET PO SCH (21:00)
[2021-12-23 22:55] VITALS: BP 133/57
[2021-12-23] MEDS: traMADol 50 MG TABLET PO PRN (23:02)
[2021-12-24 02:50] VITALS: BP 123/54
[2021-12-24] MEDS: PANTOPRAZOLE 40 MG TABLET.DR. PO SCH (06:11)
[2021-12-24 07:00] VITALS: BP 118/62
[2021-12-24] MEDS ORDERED: IPRATRPIUM/ALBUTEROL 0.5/2.5MG 3 ML NEBU. ONE (07:05)
[2021-12-24] MEDS: IPRATRPIUM/ALBUTEROL 0.5/2.5MG 3 ML NEBU. NEB SCH ×3 (07:07→15:44)
[2021-12-24] MEDS: BUDESONIDE 0.5 MG/2 ML NEBU. NEB SCH (07:07)
[2021-12-24] MEDS ORDERED: LEVOTHYROXINE 75 MCG TABLET PO SCH (07:30)
[2021-12-24] MEDS: INSULIN LISPRO 300 UNITS/3 ML VIAL. SQ SCH ×3 (08:00→17:00)
[2021-12-24] MEDS: metFORMIN 500 MG TABLET PO SCH ×2 (08:42→17:49)
[2021-12-24] MEDS: AMOXICILLIN/K CLAV 875/125MG TABLET. PO SCH (08:42)
[2021-12-24] MEDS: CHOLECALCIFEROL (VITAMIN D3) 5,000 UNIT CAPSULE PO SCH (08:43)
[2021-12-24] MEDS: PREGABALIN 75 MG CAPSULE PO SCH ×2 (08:43→17:49)
[2021-12-24] MEDS: LINAGLIPTIN 5 MG TABLET PO SCH (08:43)
[2021-12-24] MEDS: LIPASE/PROTEAS/AMYLAS 10/32/42 CAPSULE.DR. PO SCH ×3 (08:43→17:49)
[2021-12-24] MEDS: CALCIUM CARBONATE 500 MG TABLET PO SCH ×2 (08:44→17:49)
[2021-12-24] MEDS: EMPAGLIFLOZIN 25 MG TABLET. PO SCH (08:44)
[2021-12-24] MEDS: APIXABAN 5 MG TABLET. PO SCH (08:45)
[2021-12-24] MEDS: POLYETHYLENE GLYCOL 3350 17 GM PACKET. PO SCH (08:47)
[2021-12-24] MEDS: CLOTRIMAZOLE/BETAMETH 1%-0.05% TOPICAL CREAM 15GM TUBE. TP SCH (08:47)
[2021-12-24] MEDS ORDERED: hydroCHLOROthiazide 12.5 MG TABLET PO SCH (09:00)
[2021-12-24] MEDS ORDERED: LISINOPRIL 10 MG TABLET PO SCH (09:00)
[2021-12-24] MEDS ORDERED: FOLIC ACID 1 MG TABLET. PO SCH (09:00)
[2021-12-24] MEDS ORDERED: AMIODARONE HCL 200 MG TABLET. PO SCH (09:00)
[2021-12-24] MEDS ORDERED: MULTIVITAMIN I-VITE TABLET. PO SCH (09:00)
--- NOTE | 2021-12-24 10:11 | PDOC ---
CARDIO Progress Notes Subjective Subjective: No Chest Pain, No Palpitations, Other (SOA better) Vitals Vitals Vital Signs Date Time Temp Pulse Resp B/P (MAP) Pulse Ox O2 Delivery O2 Flow Rate FiO2 12/24/21 08:44 64 118/62 12/24/21 07:07 96 Nasal Cannula 2.0 12/24/21 07:00 97.7 18 97.7 Weight Weight [ ] Input and Output Intake and Output Intake and Output 12/24/21 07:00 Intake Total 820 ml Output Total 300 ml Balance 520 ml Intake Oral 620 ml IV Total 200 ml Output Urine Total 300 ml # Voids 2 # Bowel Movements 1 Laboratory Labs Laboratory Tests Test 12/23/21 16:36 12/23/21 20:22 12/24/21 07:38 Glucose (Fingerstick) 221 mg/dL (70-99) 105 mg/dL (70-99) 142 mg/dL (70-99) Microbiology Micro Microbiology 12/23/21 - Final, Complete 12/14/21 Urine Culture - Final, Complete 12/14/21 Blood Culture - Final, Complete NO GROWTH AFTER 5 DAYS Physical Exam HEENT: Neck Supple W Full Motion Chest: Symmetric LUNGS: Clear to Auscultation Heart: S1S2, RRR (SR) Abdomen: Soft N/T Extremities: No Edema Neurology: alert, oriented, follow commands Justicifation of Admission Dx: Justifications for Admission: Justification of Admission Dx: N/A DOMONIQUE VICENTE APRN Dec 24, 2021 10:11
[2021-12-24] MEDS ORDERED: AMIO200T53 PO (10:48)
[2021-12-24] MEDS ORDERED: HYDR-2759 PO (10:48)
[2021-12-24] MEDS ORDERED: DILT120C99 PO (10:48)
[2021-12-24] MEDS ORDERED: AMOX1TAB11 PO (10:48)
[2021-12-24] MEDS ORDERED: OLAN5TAB7 PO (10:48)
[2021-12-24] MEDS ORDERED: APIX5TAB PO (10:48)
--- NOTE | 2021-12-24 10:54 | SNU/HH DC ---
DISCHARGE ORDERS DISCHARGE INFORMATION: DISCHARGE DATE: Dec 24, 2021 FINAL DIAGNOSIS 1. Acute hypoxic respiratory failure with progression of reticular nodular nterstitial infiltrates along with increasing bronchiectasis. 2. sepsis was POA, 3. on methotrexate for rheumatoid arthritis. 4. pneumonia, CXR and clinical concern for Mycobacterium avium or pseudomonas 5. Acute kidney injury, resolved. 6. Mild bronchospasm, likely secondary to infectious etiology. Problems Medical Problems: (1) Healthcare-associated pneumonia Status: Acute (2) Paroxysmal atrial fibrillation Status: Acute (3) Respiratory failure with hypoxia Status: Acute CONDITION ON DISCHARGE: Stable CODE STATUS: Code Status: Full CARE HOME: SNF STAY <30 DAYS: Yes POST DISCHARGE ORDERS: ACTIVITY ORDERS: Walk in house WEIGHT BEARING STATUS: No restrictions BATHING ORDERS: Shower-keep dressing dry, No Tub Bath until see WOUND/INCISION CARE: Ice to area for comfort, Keep wound/cast CDI TREATMENT/EQUIPMENT ORDERS: ADAPTIVE EQUIPMENT NEEDED: None Physical Therapy For: Evalulation/Treatment Occupational Therapy For: Evaluation/Treatment DISCHARGE MEDICATIONS: Home Meds Active Scripts Amoxicillin/Potassium Clav (AMOX TR-K CLV 875-125 MG TAB) 1 Each Tablet, 1 TAB PO BID for pneumonia, #10 TAB Prov:ABBY JOHNSON MD 12/24/21 Amiodarone Hcl (AMIODARONE HCL) 200 Mg Tablet, 200 MG PO DAILY for cardiac rhythm, #30 TAB 1 Refill Prov:ABBY JOHNSON MD 12/24/21 Apixaban (ELIQUIS) 5 Mg Tablet, 5 MG PO BID for afib, #60 TAB Prov:ABBY JOHNSON MD 12/24/21 Diltiazem Hcl (DILTIAZEM 24HR CD) 120 Mg Cap.er.24h, 120 MG PO DAILY for rate control , #30 CAP.SR Prov:ABBY JOHNSON MD 12/24/21 Olanzapine (OLANZAPINE ODT) 5 Mg Tab.rapdis, 5 MG PO PRN BID PRN for ANXIETY / AGITATION, #30 TAB Prov:ABBY JOHNSON MD 12/24/21 Hydrocodone/Acetaminophen (Hydrocodone-Acetamin 5-325 mg) 1 Each Tablet, 1 EACH PO Q6HRS PRN for PAIN, #30 TAB 0 Refills Prov:ABBY JOHNSON MD 12/24/21 Reported Medications Methotrexate Sodium (METHOTREXATE) 2.5 Mg Tablet, 4 TAB PO WEEKLY for RA, #16 TAB 1 Refill 12/22/21 Amitriptyline Hcl (AMITRIPTYLINE HCL) 10 Mg Tablet, 1 TAB PO QHS for Insomnia, #30 TAB 1 Refill 12/22/21 Atorvastatin Calcium (ATORVASTATIN CALCIUM) 20 Mg Tablet, 20 MG PO HS for FOR CHOLESTEROL, #30 TAB 0 Refills 12/22/21 Metformin Hcl (METFORMIN HCL) 500 Mg Tablet, 500 MG PO BIDWMEALS for ANTI- DIABETIC, TAB 0 Refills 12/22/21 Lisinopril/Hydrochlorothiazide (LISINOPRIL-HCTZ 10-12.5 MG TAB) 1 Each Tablet, 1 TAB PO DAILY for HTN, #30 TAB 5 Refills 12/22/21 Lipase/Protease/Amylase (CREON DR 12,000 UNITS CAPSULE) 1 Each Capsule.dr, 1 EACH PO TIDWMEALS for binder, CAP 12/22/21 Levothyroxine Sodium (Levo-T) 75 Mcg Tablet, 1 TAB PO DAILY for hypothyroid for 30 Days, #30 TAB 0 Refills 12/22/21 Lactobacillus Acidophilus (ACIDOPHILUS) 1 Each Tab.chew, 1 EACH PO DAILY for Supplement, TAB.CHEW 12/15/21 Calcium Carbonate (CALCIUM) 500 Mg Tablet, 500 MG PO TID for , TAB 07/30/21 Pantoprazole Sodium (PROTONIX) 20 Mg Tablet.dr, 20 MG PO DAILY for STOMACH, TAB 07/30/21 Folic Acid (FOLIC ACID) 0.4 Mg Tablet, 0.4 MG PO DAILY for SUPPLEMENT, TAB 07/30/21 Cholecalciferol (Vitamin D3) (Vitamin D3 ) 125 Mcg Capsule, 125 MCG PO DAILY for SUPPLEMENT, CAP 5,000 UNITS = 125 MCG 07/30/21 Vit A,C & E/Lutein/Minerals (OCUVITE TABLET) 1 Each Tablet, 1 TAB PO DAILY for for 30 Days, #30 TAB 0 Refills 07/30/21 Pregabalin (LYRICA) 150 Mg Capsule, 150 MG PO TID for LEG PAIN for 30 Days, CAP 0 Refills 07/30/21 Discontinued Reported Medications Lactobacillus Combo No.10 (PROBIOTIC) 1 Each Capsule, 1 TAB PO DAILY for for 30 Days, #30 TAB 0 Refills 07/30/21 ABBY JOHNSON MD Dec 24, 2021 10:54
[2021-12-24 11:00] VITALS: BP 100/58
--- NOTE | 2021-12-24 11:19 | NUR ---
SS following up with discharge planning. SS reviewed pt chart and discussed with pt RN. Pt is currently requiring oxygen at two liters nasal canula. COVID19 negative. Bronch results pending. PT/OT recommended fdc unit. Pt accepted at [facility], ; fax [phone]. Insurance authorization was received over the weekend and [facility] working to update insurance authorization. Discharge orders received and sent to [facility]. Currently awaiting further information from [facility] regarding updated insurance authorization. Anticipate discharge later today. Pt's daughter notified. Per RN, pt is wheelchair transport. SS will continue to follow for discharge planning. Addendum: 12/24/21 at 1157 by NAE MATTSON SS Pt will discharge today and go to [facility] between 1220 and 1330 today. Pt, pt's RN, and pt's family notified.
--- NOTE | 2021-12-24 13:14 | PDOC ---
CARDIO Progress Notes Date and Time Date of Service 12/24/2021 Time of Evaluation 1300 Subjective Subjective: No Chest Pain, No shortness of breath, No Palpitations, Other (SOA better) Vitals Vitals Vital Signs Date Time Temp Pulse Resp B/P (MAP) Pulse Ox O2 Delivery O2 Flow Rate FiO2 12/24/21 11:00 96.0 58 18 100/58 (72) 96 Nasal Cannula 2.0 96.0 Weight Weight [ ] Input and Output Intake and Output Intake and Output 12/24/21 07:00 Intake Total 820 ml Output Total 300 ml Balance 520 ml Intake Oral 620 ml IV Total 200 ml Output Urine Total 300 ml # Voids 2 # Bowel Movements 1 Laboratory Labs Laboratory Tests Test 12/23/21 16:36 12/23/21 20:22 12/24/21 07:38 12/24/21 11:28 Glucose (Fingerstick) 221 mg/dL (70-99) 105 mg/dL (70-99) 142 mg/dL (70-99) 135 mg/dL (70-99) Microbiology Micro Microbiology 12/23/21 - Final, Complete 12/14/21 Urine Culture - Final, Complete 12/14/21 Blood Culture - Final, Complete NO GROWTH AFTER 5 DAYS Physical Exam HEENT: Neck Supple W Full Motion Chest: Symmetric LUNGS: Clear to Auscultation Heart: S1S2, RRR (SR) Abdomen: Soft N/T Extremities: No Edema Neurology: alert, oriented, follow commands Assessment Assessment 1. Acute respiratory failure secondary to PNA 2. New onset AFIB with RVR; Maintaining SR. EF and LV WM nml per TTE 3. Hypertension; controlled 4. Hyperlipidemia 5. Diabetes, II 6. Hypothyroidism 7. RA 8. KENNEY; much improved 9. Bacteremia; BC with 2/4 bottles [facility] Recommendations Cardizem for rate control Amiodarone for rhythm maintenance. Eliquis for stroke prophylaxis Consider outpatient ischemic evaluation Follow up in office as scheduled Justicifation of Admission Dx: Justifications for Admission: Justification of Admission Dx: N/A ISSAC JENKINS APRN Dec 24, 2021 13:14
[2021-12-24] MEDS ORDERED: ANTI-COAG MONITOR BY PHARMACY. MC PRN (13:45)
--- NOTE | 2021-12-24 15:02 | PDOC3 ---
Discharge Summary Visit Information Date of Admission: Dec 14, 2021 Date of Discharge: Dec 24, 2021 Final Diagnosis Acute respiratory failure with hypoxia - due to bronchiectasis/HCAP. Will wean O2 as tolerated. Consult pulmonology who she sees outpatient. Possible rheumatoid lung vs MAC? Gram positive blood cultures - will cont cefepime, f/u results staph hominis likely is a contaminant but patient is immunosuppressed we will continue cefepime Abnormal CXR - this is Healthcare-associated pneumonia given assisted living facility setting. Given bronciectasis will treat for pseudomonas, gram negative. 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 Will have pulm assess for possible lung tox given abnormal CT DM2 - A1c 8.1, will initiate jardiance given cardiac arrhythmia and diastolic CHF and tradjenta for oral hypoglycemic agents Problems Medical Problems: (1) Healthcare-associated pneumonia Status: Acute (2) Paroxysmal atrial fibrillation Status: Acute (3) Respiratory failure with hypoxia Status: Acute Brief Hospital Course Allergies Allergies Coded Allergies Type Severity Reaction Last Updated Verified No Known Drug Allergies 12/23/21 No Vital Signs Vital Signs Date Time Temp Pulse Resp B/P (MAP) Pulse Ox O2 Delivery O2 Flow Rate FiO2 12/24/21 11:00 96.0 58 18 100/58 (72) 96 Nasal Cannula 2.0 96.0 Lab Results Laboratory Tests Test 12/22/21 17:16 12/22/21 22:26 12/23/21 04:40 12/23/21 08:18 Glucose (Fingerstick) 120 mg/dL (70-99) 140 mg/dL (70-99) 136 mg/dL (70-99) White Blood Count 8.9 x10^3/uL (4.0-11.0) Red Blood Count 5.08 x10^6/uL (3.50-5.40) Hemoglobin 12.8 g/dL (12.0-15.5) Hematocrit 41.4 % (36.0-47.0) Mean Corpuscular Volume 81 fL (79-100) Mean Corpuscular Hemoglobin 25 pg (25-35) Mean Corpuscular Hemoglobin Concent 31 g/dL (31-37) Red Cell Distribution Width 20.3 % (11.5-14.5) Platelet Count 188 x10^3/uL (140-400) Neutrophils (%) (Auto) 79 % (31-73) Lymphocytes (%) (Auto) 11 % (24-48) Monocytes (%) (Auto) 7 % (0-9) Eosinophils (%) (Auto) 2 % (0-3) Basophils (%) (Auto) 1 % (0-3) Neutrophils # (Auto) 7.0 x10^3/uL (1.8-7.7) Lymphocytes # (Auto) 1.0 x10^3/uL (1.0-4.8) Monocytes # (Auto) 0.7 x10^3/uL (0.0-1.1) Eosinophils # (Auto) 0.2 x10^3/uL (0.0-0.7) Basophils # (Auto) 0.1 x10^3/uL (0.0-0.2) Prothrombin Time 15.5 SEC (11.7-14.0) Prothromb Time International Ratio 1.3 (0.8-1.1) Sodium Level 140 mmol/L (136-145) Potassium Level 4.4 mmol/L (3.5-5.1) Chloride Level 101 mmol/L (98-107) Carbon Dioxide Level 35 mmol/L (21-32) Anion Gap 4 (6-14) Blood Urea Nitrogen 20 mg/dL (7-20) Creatinine 0.9 mg/dL (0.6-1.0) Estimated GFR (Cockcroft-Gault) 60.4 BUN/Creatinine Ratio 22 (6-20) Glucose Level 140 mg/dL (70-99) Calcium Level 9.8 mg/dL (8.5-10.1) Total Bilirubin 0.4 mg/dL (0.2-1.0) Aspartate Amino Transf (AST/SGOT) 23 U/L (15-37) Alanine Aminotransferase (ALT/SGPT) 25 U/L (14-59) Alkaline Phosphatase 68 U/L (46-116) Total Protein 7.1 g/dL (6.4-8.2) Albumin 3.1 g/dL (3.4-5.0) Albumin/Globulin Ratio 0.8 (1.0-1.7) Test 12/23/21 16:36 12/23/21 20:22 12/24/21 07:38 12/24/21 11:28 Glucose (Fingerstick) 221 mg/dL (70-99) 105 mg/dL (70-99) 142 mg/dL (70-99) 135 mg/dL (70-99) Laboratory Tests Test 12/23/21 16:36 12/23/21 20:22 12/24/21 07:38 12/24/21 11:28 Glucose (Fingerstick) 221 mg/dL (70-99) 105 mg/dL (70-99) 142 mg/dL (70-99) 135 mg/dL (70-99) Brief Hospital Course Ms Weber is a 81 year old female w/ PMHx HTN, GERD, Rheumatoid arthritis, DM2 with neuropathy admt with sepsis and cough with purulent sputum, shortness of breath. She lives in assisted living facility, on admitwas Atrial fibrillation with RVR, Rate is 132 bpm, left axis, no ST elevation or TWI Chest radiograph with bibasilar airspace disease. Given her symptoms and elevated D-dimer she underwent CT pulmonary angiogram revealing no pulmonary embolism but did reveal dilated pulmonary artery trunk suggesting pulmonary artery hypertension as well as diffuse scattered bilateral groundglass consolidative opacities with tree-in-bud appearance and hepatic steatosis incidentally Labs with WBC 12.7, Hb 11.3, platelets 200, NA 139, K3.9, BUN 31, CR 1.4, glucose 139, albumin 2.9 otherwise LFTs within normal laboratory limits, high- sensitivity troponin is 30, NT proBNP is 847, urinalysis with moderate leuk esterase, rapid influenza negative, rapid COVID-19 negative, D-dimer 1.35 Blood cultures resulted +2 bottles with gram-positive cocci. Discussed with pulmonology bronchiectatic changes and chronic methotrexate are concerning for possible MAC. cefepime bronchoscopy done on 12/23 Dr. Karimi, he will follow staph hominus, quinolone resistant noted cough and weakness, needs skilled Discharge Information Condition at Discharge: Improved Follow Up: Weeks Disposition/Orders: D/C to Another Facility Scheduled Amiodarone Hcl (Amiodarone Hcl) 200 Mg Tablet, 200 MG PO DAILY for cardiac rhythm, #30 Ref 1 Prescribed by: ABBY JOHNSON on 12/24/21 1048 Amitriptyline Hcl (Amitriptyline Hcl) 10 Mg Tablet, 1 TAB PO QHS for Insomnia, #30 Ref 1 (Reported) Entered as Reported by: DENNIS SANDOVAL RN on 12/22/211408 Last Action: Continued on 12/23/211415 by ABBY JOHNSON Amoxicillin/Potassium Clav (Amox Tr-K Clv 875-125 Mg Tab) 1 Each Tablet, 1 TAB PO BID for pneumonia, #10 Prescribed by: ABBY JOHNSON on 12/24/21 1048 Apixaban (Eliquis) 5 Mg Tablet, 5 MG PO BID for afib, #60 Prescribed by: ABBY JOHNSON on 12/24/21 1048 Atorvastatin Calcium (Atorvastatin Calcium) 20 Mg Tablet, 20 MG PO HS for FOR CHOLESTEROL, #30 Ref 0 (Reported) Entered as Reported by: DENNIS SANDOVAL RN on 12/22/211408 Last Action: Continued on 12/23/211415 by ABBY JOHNSON Calcium Carbonate (Calcium) 500 Mg Tablet, 500 MG PO TID for , (Reported) Entered as Reported by: Yesi Lucia on 07/30/211123 Last Action: Continued on 12/15/211215 by NEELA AYALA MD Cholecalciferol (Vitamin D3) (Vitamin D3 ) 125 Mcg Capsule, 125 MCG PO DAILY for SUPPLEMENT, (Reported) 5,000 UNITS = 125 MCG Entered as Reported by: Yesi Lucia on 07/30/211123 Last Action: Reviewed on 12/22/211408 by DENNIS SANDOVAL RN Diltiazem Hcl (Diltiazem 24HR Cd) 120 Mg Cap.er.24h, 120 MG PO DAILY for rate control , #30 Prescribed by: ABBY JOHNSON on 12/24/21 1048 Folic Acid (Folic Acid) 0.4 Mg Tablet, 0.4 MG PO DAILY for SUPPLEMENT, (Reported) Entered as Reported by: Ysei Lucia on 07/30/211123 Last Action: Converted on 12/23/211415 by ABBY JOHNSON Lactobacillus Acidophilus (Acidophilus) 1 Each Tab.chew, 1 EACH PO DAILY for Supplement, (Reported) Entered as Reported by: RASHIDA GIBSON RN on 12/15/21 105 Last Taken: UNKNOWN on Unknown Date & Time Last Action: HELD on 12/23/211415 by ABBY JOHNSON Levothyroxine Sodium (Levo-T) 75 Mcg Tablet, 1 TAB PO DAILY for hypothyroid for 30 Days, #30 Ref 0 (Reported) Entered as Reported by: DENNIS SANDOVAL RN on 12/22/211408 Last Action: Continued on 12/23/211415 by ABBY JOHNSON Lipase/Protease/Amylase (Creon 12,000 Units Capsule) 1 Each Capsule.dr, 1 EACH PO TIDWMEALS for binder, (Reported) Entered as Reported by: DENNIS SANDOVAL RN on 12/22/211408 Last Action: Converted on 12/23/211415 by ABBY JOHNSON Lisinopril/Hydrochlorothiazide (Lisinopril-Hctz 10-12.5 Mg Tab) 1 Each Tablet, 1 TAB PO DAILY for HTN, #30 Ref 5 (Reported) Entered as Reported by: DENNIS SANDOVAL RN on 12/22/211408 Last Action: Converted on 12/23/211415 by ABBY JOHNSON Metformin Hcl (Metformin Hcl) 500 Mg Tablet, 500 MG PO BIDWMEALS for ANTI- DIABETIC, Ref 0 (Reported) Entered as Reported by: DENNIS SANDOVAL RN on 12/22/211408 Last Action: Continued on 12/23/211415 by ABBY JOHNSON Methotrexate Sodium (Methotrexate) 2.5 Mg Tablet, 4 TAB PO WEEKLY for RA, #16 Ref 1 (Reported) Entered as Reported by: DENNIS SANDOVAL RN on 12/22/211408 Last Action: Continued on 12/23/211415 by ABBY JOHNSON Pantoprazole Sodium (Protonix) 20 Mg Tablet., 20 MG PO DAILY for STOMACH, (Reported) Entered as Reported by: Yesi Lucia on 07/30/21 1124 Last Action: Reviewed on 12/22/211408 by DENNIS SANDOVAL RN Pregabalin (Lyrica) 150 Mg Capsule, 150 MG PO TID for LEG PAIN for 30 Days, Ref 0 (Reported) Entered as Reported by: Yesi Lucia on 07/30/211123 Last Action: Reviewed on 12/22/211408 by DENNIS SANDOVAL RN Vit A,C & E/Lutein/Minerals (Ocuvite Tablet) 1 Each Tablet, 1 TAB PO DAILY for for 30 Days, #30 Ref 0 (Reported) Entered as Reported by: Yesi Lucia on 07/30/211123 Last Action: Continued on 12/23/21 1416 by ABBY JOHNSON Scheduled PRN Hydrocodone/Acetaminophen (Hydrocodone-Acetamin 5-325 mg) 1 Each Tablet, 1 EACH PO Q6HRS PRN for PAIN, #30 Ref 0 Prescribed by: ABBY JOHNSON on 12/24/21 1050 Olanzapine (Olanzapine Odt) 5 Mg Tab.rapdis, 5 MG PO PRN BID PRN for ANXIETY / AGITATION, #30 Prescribed by: ABBY JOHNSON on 12/24/21 1048 Discontinued Medications Lactobacillus Combo No.10 (Probiotic) 1 Each Capsule, 1 TAB PO DAILY for for 30 Days, #30 Ref 0 (Reported) Entered as Reported by: Yesi Lucia on 07/30/211123 Last Action: Reviewed on 12/22/211408 by DENNIS SANDOVAL RN Patient Instructions Patient Instructions face to face x2 32 minutes Justicifation of Admission Dx: Justifications for Admission: Justification of Admission Dx: ABBY GREGORY MD Dec 24, 2021 15:02
--- NOTE | 2021-12-24 16:04 | PDOC ---
PULMONARY PROGRESS NOTES DATE: 12/24/21 TIME: 16:03 Subjective Patient not more short of air, no productive cough. Vitals Vital Signs Date Time Temp Pulse Resp B/P (MAP) Pulse Ox O2 Delivery O2 Flow Rate FiO2 12/24/21 15:45 97 Nasal Cannula 2.0 12/24/21 11:00 96.0 58 18 100/58 (72) 96.0 ROS: No Nausea, No Chest Pain, No Abdominal Pain, No Increase Cough General: Alert, No acute distress HEENT: Other (nc at perrl ) Lungs: Wheezing Cardiovascular: S1, S2 Abdomen: Soft Neuro Exam: Alert Extremities: No Edema Skin: Warm Labs Laboratory Tests Test 12/22/21 17:16 12/22/21 22:26 12/23/21 04:40 12/23/21 08:18 Glucose (Fingerstick) 120 mg/dL (70-99) 140 mg/dL (70-99) 136 mg/dL (70-99) White Blood Count 8.9 x10^3/uL (4.0-11.0) Red Blood Count 5.08 x10^6/uL (3.50-5.40) Hemoglobin 12.8 g/dL (12.0-15.5) Hematocrit 41.4 % (36.0-47.0) Mean Corpuscular Volume 81 fL (79-100) Mean Corpuscular Hemoglobin 25 pg (25-35) Mean Corpuscular Hemoglobin Concent 31 g/dL (31-37) Red Cell Distribution Width 20.3 % (11.5-14.5) Platelet Count 188 x10^3/uL (140-400) Neutrophils (%) (Auto) 79 % (31-73) Lymphocytes (%) (Auto) 11 % (24-48) Monocytes (%) (Auto) 7 % (0-9) Eosinophils (%) (Auto) 2 % (0-3) Basophils (%) (Auto) 1 % (0-3) Neutrophils # (Auto) 7.0 x10^3/uL (1.8-7.7) Lymphocytes # (Auto) 1.0 x10^3/uL (1.0-4.8) Monocytes # (Auto) 0.7 x10^3/uL (0.0-1.1) Eosinophils # (Auto) 0.2 x10^3/uL (0.0-0.7) Basophils # (Auto) 0.1 x10^3/uL (0.0-0.2) Prothrombin Time 15.5 SEC (11.7-14.0) Prothromb Time International Ratio 1.3 (0.8-1.1) Sodium Level 140 mmol/L (136-145) Potassium Level 4.4 mmol/L (3.5-5.1) Chloride Level 101 mmol/L (98-107) Carbon Dioxide Level 35 mmol/L (21-32) Anion Gap 4 (6-14) Blood Urea Nitrogen 20 mg/dL (7-20) Creatinine 0.9 mg/dL (0.6-1.0) Estimated GFR (Cockcroft-Gault) 60.4 BUN/Creatinine Ratio 22 (6-20) Glucose Level 140 mg/dL (70-99) Calcium Level 9.8 mg/dL (8.5-10.1) Total Bilirubin 0.4 mg/dL (0.2-1.0) Aspartate Amino Transf (AST/SGOT) 23 U/L (15-37) Alanine Aminotransferase (ALT/SGPT) 25 U/L (14-59) Alkaline Phosphatase 68 U/L (46-116) Total Protein 7.1 g/dL (6.4-8.2) Albumin 3.1 g/dL (3.4-5.0) Albumin/Globulin Ratio 0.8 (1.0-1.7) Test 12/23/21 16:36 12/23/21 20:22 12/24/21 07:38 12/24/21 11:28 Glucose (Fingerstick) 221 mg/dL (70-99) 105 mg/dL (70-99) 142 mg/dL (70-99) 135 mg/dL (70-99) Laboratory Tests Test 12/23/21 16:36 12/23/21 20:22 12/24/21 07:38 12/24/21 11:28 Glucose (Fingerstick) 221 mg/dL (70-99) 105 mg/dL (70-99) 142 mg/dL (70-99) 135 mg/dL (70-99) Medications Active Scripts Medications Dose Route/Sig Max Daily Dose Days Date Category Dose Instructions Ocuvite Lutein 25-5 mg Softgel (Lutein/Zeaxanthin) 1 Each Capsule 1 Cap PO DAILY 30 12/15/21 Reported Acidophilus (Lactobacillus Acidophilus) 1 Each Tab.chew 1 Each PO DAILY 12/15/21 Reported Hydrocodone-Acetamin 5-325 mg (Hydrocodone/Acetaminophen) 1 Each Tablet 1 Each PO Q6HRS PRN 7 07/31/21 Rx [Creon] 07/30/21 Reported Tylenol Extra Strength (Acetaminophen) 500 Mg Tablet 500 Mg PO BID 07/30/21 Reported Calcium (Calcium Carbonate) 500 Mg Tablet 500 Mg PO TID 07/30/21 Reported Protonix (Pantoprazole Sodium) 20 Mg Tablet.dr 20 Mg PO DAILY 07/30/21 Reported Folic Acid 0.4 Mg Tablet 0.4 Mg PO DAILY 07/30/21 Reported Vitamin D3 (Vitamin D) 125 Mcg Capsule 125 Mcg PO DAILY 07/30/21 Reported 5,000 UNITS = 125 MCG Methotrexate (Methotrexate Sodium) 2.5 Mg Tablet 6 Tab PO WEEKLY 07/30/21 Reported Ocuvite Tablet (Vit A,C & E/Lutein/Minerals) 1 Each Tablet 1 Tab PO DAILY 30 07/30/21 Reported Probiotic (Lactobacillus Combo No.10) 1 Each Capsule 1 Tab PO DAILY 30 07/30/21 Reported Lyrica (Pregabalin) 150 Mg Capsule 150 Mg PO TID 30 07/30/21 Reported Impression . 1. Acute hypoxic respiratory failure with progression of reticular nodular interstitial infiltrates along with increasing bronchiectasis. This is a patient who is immunocompromised. She is on methotrexate for rheumatoid arthritis. She is at risk for opportunistic and gram-negative infection such as Pseudomonas. Her CT chest presentation is also highly suspicious for Mycobacterium avium complex infection. She has reticular nodular interstitial infiltrates along with bronchiectasis. There has been progression since previous two CAT scans. 2. Acute kidney injury, resolved. 3. No significant tobaccoism. 4. Updated on COVID-19 vaccination. 5. Mild bronchospasm, likely secondary to infectious etiology. She does not have any significant tobaccoism. Resolved. Plan . Status post bronchoscopy, so far BAL negative Discussed with Dr. Kyler Estrada for discharge Follow-up with Dr. Calvillo in 2 to 4 weeks after discharge from alf unit YAMILEX NASCIMENTO MD Dec 24, 2021 16:04
--- NOTE | 2021-12-24 19:12 | NUR ---
Report called into [facility]. will await transportation for patient pickup.
--- NOTE | 2021-12-26 11:17 | PATHOLOGY ---
Note [facility] Accession Number: [id number] TESTS RESULT FLAG UNITS REF RANGE LAB Clinician Provided Cytology Information No. of containers..01 Other (Miscellaneous) Source: RLL BAL DIAGNOSIS: RLL BAL NEGATIVE FOR MALIGNANT CELLS. FEW BRONCHIAL EPITHELIAL CELLS AND PULMONARY MACROPHAGES PRESENT. GMS STAIN IS NEGATIVE FOR PNEUMOCYSTIS AND NEGATIVE FOR YEAST/FUNGAL ORGANISMS. Signed out by: 02 Glen Anton MD, Pathologist NPI- [id number] Performed by: Naif Vásquez, Estate Planner ([facility]) Gross description: 10 05, RED, [place]QUE /LCS 12/24/2021 1743 Local FLAG LEGEND: L-Low Normal,H-High Normal,LL-Alert Low,HH-Alert High <-Panic Low,>-Panic High,A-Abnormal,AA-Critical Abnormal Performed at: [facility] [place] [address] [place] [address] Jeremy Moody MD, 02 [facility] [address] [place] [address] Glen Anton MD, Specimen Comment: A courtesy copy of this report has been sent to [phone], [phone] Specimen Comment: [id number], Specimen Comment: Report sent to , DR JOHNSON / DR AYALA Performed at: 01 [facility] [address], [place], [place] [id number] MD Jeremy Moody MD Phone: [phone]
[2021-12-30] MEDS ORDERED: METHOTREXATE SODIUM 2.5 MG TABLET PO SCH (09:00)
== END 2021-12-24 19:40 | DRG 871 ==
LOC: ER 18:13 → 6 SOUTH 19:54
PROVIDERS: ADMIT Internal Medicine; ATTEND Internal Medicine
PROC: 0B9F8ZX Drainage of Right Lower Lung Lobe, Via Natural or Artificial Opening Endoscopic, Diagnostic (ICD-10-PCS; principal; 2021-12-14)
DX: A41.9 Sepsis, unspecified organism (principal); J15.6 Pneumonia due to other Gram-negative bacteria; J96.01 Acute respiratory failure with hypoxia; E43 Unspecified severe protein-calorie malnutrition; J18.9 Pneumonia, unspecified organism; D84.9 Immunodeficiency, unspecified; I50.30 Unspecified diastolic (congestive) heart failure; J47.0 Bronchiectasis with acute lower respiratory infection; N17.9 Acute kidney failure, unspecified; N39.0 Urinary tract infection, site not specified; E03.9 Hypothyroidism, unspecified; E11.40 Type 2 diabetes mellitus with diabetic neuropathy, unspecified; E78.5 Hyperlipidemia, unspecified; I11.0 Hypertensive heart disease with heart failure; I25.10 Atherosclerotic heart disease of native coronary artery without angina pectoris; I48.0 Paroxysmal atrial fibrillation; J98.01 Acute bronchospasm; K21.9 Gastro-esophageal reflux disease without esophagitis; K76.0 Fatty (change of) liver, not elsewhere classified; M06.9 Rheumatoid arthritis, unspecified; M48.14 Ankylosing hyperostosis [Forestier], thoracic region; Y95 Nosocomial condition; Z20.822 Contact with and (suspected) exposure to COVID-19; Z82.49 Family history of ischemic heart disease and other diseases of the circulatory system; Z87.891 Personal history of nicotine dependence; Z90.710 Acquired absence of both cervix and uterus; Z79.899 Other long term (current) drug therapy
CPT/HCPCS: 31622; 36415; 71045; 71275; 80048; 80053; 80061; 81001; 82550; 82962; 83036; 83605; 83735; 83880; 84443; 84484; 85007; 85025; 85379; 85610; 87040; 87070; 87077; 87086; 87102; 87116; 87186; 87205; 87252; 87428; 87801; 93005; 93306; 93971; 94640; 94760; 96374; 96375; J0692; J1160; J1644; J1815; J2704; J3370; J3490; J7030; J7040; J7120; J8610; Q9967; U0003; 97110-GP; 97116-GP; 97530-GO; 97530-GP; 97535-GO; 99285-25; C8929; G0378; J7626